=== PATIENT | female | born 1965 | race Caucasian/White ===

== ENCOUNTER 2018-10-09 21:14 | Emergency (ER) | payer MEDICARE, OTHER ==
[~2018-10-09] VITALS: Ht 177.8 cm; Wt 136.1 kg
[2018-10-09 21:20] VITALS: BP 67/68
[2018-10-09] MEDS ORDERED: CELEXA20 MG ORAL (21:27)
[2018-10-09] MEDS ORDERED: BENZTROPINE ME0.5 MG PO (21:27)
[2018-10-09] MEDS ORDERED: SEROQUEL200 MG ORAL (21:27)
[2018-10-09] MEDS ORDERED: DIVALPROEX SOD500 MG PO (21:27)
[2018-10-09] MEDS ORDERED: SENNA8.6 M2 PO (21:27)
[2018-10-09] MEDS ORDERED: COLACE100 MG ORAL (21:27)
[2018-10-09] MEDS ORDERED: SYNTHROID100 MCG ORAL (21:27)
[2018-10-09] MEDS ORDERED: MILK OF MA400 MG/51 ORAL (21:27)
[2018-10-09] MEDS ORDERED: OMEGA 3 1,0001 EACH PO (21:27)
[2018-10-09] MEDS ORDERED: PROTONIX40 MG ORAL (21:27)
[2018-10-09] MEDS ORDERED: ATORVASTATIN CA80 MG ORAL (21:27)
[2018-10-09] MEDS ORDERED: BISACODYL10 M1 RC (21:27)
[2018-10-09] MEDS ORDERED: LOPID600 MG ORAL (21:27)
[2018-10-09] MEDS ORDERED: ACETAMINOPHEN325 M1 ORAL (21:27)
[2018-10-09] MEDS ORDERED: LORazepam Inj 2mg/ml 1ml IV ONE (21:30)
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
[2018-10-09] MEDS ORDERED: Bacitracin Oint UD TOPIC ONE (21:45)
[2018-10-09] MEDS ORDERED: Tetanus/Diptheria/Pertussis Vaccine 0.5ml Syr IM ONE (21:45)
[2018-10-09 21:57] LABS: APPEARANCE,URINE VERY CLOUDY; BASOPHILS % (AUTO) 1.4 % (0.0-2.0); BILIRUBIN, URINE NEGATIVE (NEGATIVE); COLOR,URINE PALE YELLOW; EOSINOPHILS % (AUTO) 2.3 % (0.0-3.0); GLUCOSE, URINE (UA) NEGATIVE (NEGATIVE); HEMATOCRIT 34.8 % (37.0-47.0); HEMOGLOBIN 12.2 G/DL (12.0-16.0); KETONES,URINE NEGATIVE (NEGATIVE); LEUKOCYTE ESTERASE ,URINE 3+ (NEGATIVE); LYMPHOCYTES % (AUTO) 33.9 % (20.0-45.0); MEAN CORPUSCULAR VOLUME 94 FL (80-99); MONOCYTES % (AUTO) 7.5 % (1.0-10.0); NEUTROPHILS % (AUTO) 54.9 % (45.0-75.0); NITRITE,URINE NEGATIVE (NEGATIVE); PH,URINE 6.5 (4.5-8.0); PLATELET COUNT 227 K/UL (150-450); PROTEIN,URINE 2+ (NEGATIVE); RED BLOOD COUNT 3.69 M/UL (4.20-5.40); RED CELL DISTRIBUTION WIDTH 12.5 % (11.6-14.8); UROBILINOGEN,URINE NORMAL MG/DL (0.0-1.0); WHITE BLOOD COUNT 11.3 K/UL (4.8-10.8)
--- NOTE | 2018-10-09 21:58 | Diagnostic Imaging Report ---
EXAM: XR Chest, 1 View CLINICAL HISTORY: ALOC TECHNIQUE: Frontal view of the chest. COMPARISON: No relevant prior studies available. FINDINGS: Limitations: Limited due to hypoventilation. Lungs: Possible mild pulmonary vascular congestion, versus hypoventilation. No focal consolidation. Pleural space: Unremarkable. No pneumothorax. Heart: Mildly prominent heart size. Mediastinum: Unremarkable. Bones/joints: Unremarkable. IMPRESSION: Possible mild pulmonary vascular congestion, versus hypoventilation. No focal consolidation.
[2018-10-09 22:18] LABS: ANION GAP 8 mmol/L (5-15); BLOOD UREA NITROGEN 41 mg/dL (7-18); CALCIUM 9.7 MG/DL (8.5-10.1); CARBON DIOXIDE 28 MMOL/L (21-32); CHLORIDE 103 MMOL/L (98-107); CREATININE 2.4 MG/DL (0.55-1.30); SODIUM 139 MMOL/L (136-145)
[2018-10-09 22:23] LABS: ALANINE AMINOTRANSFERASE 18 U/L (12-78); ALBUMIN 3.8 G/DL (3.4-5.0); ALBUMIN/GLOBULIN RATIO 0.8 (1.0-2.7); ALKALINE PHOSPHATASE 117 U/L (46-116); ASPARTATE AMINO TRANSFERASE 22 U/L (15-37); BILIRUBIN,TOTAL 0.1 MG/DL (0.2-1.0); CREATINE KINASE 488 U/L (26-308)
[2018-10-09 22:46] VITALS: BP 103/55
[2018-10-09] MEDS ORDERED: cefTRIAXone 1 GM in NS 55 ML IVPB ONE (23:45)
[2018-10-10 01:15] VITALS: BP 108/53
[2018-10-10] MEDS ORDERED: NITROFURANTOIN100 M2 ORAL (01:16)
[2018-10-10 02:00] VITALS: BP 106/55
[2018-10-10 02:25] VITALS: BP 106/55
== END 2018-10-10 02:25 | disposition home or self-care (01) ==
LOC: EDBD 21:14 → EMR 21:25
DX: F91.8 Other conduct disorders (principal); N30.00 Acute cystitis without hematuria; Z91.14 Patient's other noncompliance with medication regimen; F14.10 Cocaine abuse, uncomplicated; Z23 Encounter for immunization; F17.200 Nicotine dependence, unspecified, uncomplicated; J44.9 Chronic obstructive pulmonary disease, unspecified; N18.9 Chronic kidney disease, unspecified; E03.9 Hypothyroidism, unspecified; E78.5 Hyperlipidemia, unspecified; K21.9 Gastro-esophageal reflux disease without esophagitis; F20.9 Schizophrenia, unspecified; G40.909 Epilepsy, unspecified, not intractable, without status epilepticus; H54.8 Legal blindness, as defined in USA; M62.81 Muscle weakness (generalized)
CPT/HCPCS: 36415; 71045; 80053; 80164; 80307; 81003; 82550; 84484; 85025; 87086; 90471; 90715; 93005; 96361; 96365; 96375; 99284; G0480; J0696; 80329

== ENCOUNTER 2018-12-22 12:27 | Emergency (ER) | payer MEDICARE, OTHER ==
[~2018-12-22] VITALS: Ht 185.4 cm; Wt 109.3 kg
[~2018-12-22 12:27] MED LIST: ACETAMINOPHEN325 M1 ORAL; ATORVASTATIN CA80 MG ORAL; BENZTROPINE ME0.5 MG PO; BISACODYL10 M1 RC; CELEXA20 MG ORAL; COLACE100 MG ORAL; DIVALPROEX SOD500 MG PO; LOPID600 MG ORAL; MILK OF MA400 MG/51 ORAL; NITROFURANTOIN100 M2 ORAL; OMEGA 3 1,0001 EACH PO; PROTONIX40 MG ORAL; SENNA8.6 M2 PO; SEROQUEL200 MG ORAL; SYNTHROID100 MCG ORAL
[2018-12-22 12:30] VITALS: BP 104/74
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
[2018-12-22] MEDS ORDERED: BENZTROPINE ME0.5 MG PO (12:38)
[2018-12-22] MEDS ORDERED: CELEXA20 MG ORAL (12:38)
--- NOTE | 2018-12-22 12:40 | NUR ---
ED Nurse Note: Pt was brought to CT scan.
[2018-12-22] MEDS ORDERED: CRANBERRY450 M4 PO (12:45)
[2018-12-22] MEDS ORDERED: Tetanus/Diptheria/Pertussis Vaccine 0.5ml Syr IM ONE (12:45)
[2018-12-22] MEDS ORDERED: ALUM-MAG HYDRO360 ML PO (12:45)
--- NOTE | 2018-12-22 13:00 | NUR ---
ED Nurse Note: Pt was brought back to unit from CT scan. Blood drawn and Tdap were attempted by RN and pt refused x3 as stating "No. I am refusing. I have right to refuse. I don't do those things" and crossed her arms and did not let nurse to touch any part of her body. Pt also refused to chagne to gown. Pt is in bed in her own clothing. made aware.
--- NOTE | 2018-12-22 13:15 | NUR ---
ED Nurse Note: Charge nurse asked another nurse to attempt and pt refused again as stating "I said no. If you keep trying I can even go AMA."
--- NOTE | 2018-12-22 13:40 | NUR ---
ED Nurse Note: Laceration treatment done at bedside by doctor. Pt cooperated well.
[2018-12-22] MEDS ORDERED: Lidocaine 2% 20mg/ml/EPI 0.01mg/ml 20ml INJ ONE (14:00)
--- NOTE | 2018-12-22 14:17 | Diagnostic Imaging Report ---
Indications: Headache, status post fall Technique: Spiral acquisitions obtained through the brain. Angled axial and coronal 5 x 5 mm slices were reconstructed. Total dose length product 1441.87 mGycm. CTDI vol(s) 70.38 mGy. Dose reduction achieved using automated exposure control Comparison: None. Findings: No acute intracranial hemorrhage or edema. No mass effect or midline shift. Normal crenshaw-white differentiation. Normal-sized ventricles and extra axial CSF spaces. Intact calvarium, demonstrating hyperostosis. Visualized orbits and sinuses are unremarkable. There is suggestion of focal superficial soft tissue contusion in the high posterior right parietal vertex Impression: Negative. No evidence of acute intracranial bleed or mass effect The CT scanner at [facility] is accredited by the [employer] and the scans are performed using protocols designed to limit radiation exposure to as low as reasonably achievable to attain images of sufficient resolution adequate for diagnostic evaluation.
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
--- NOTE | 2018-12-22 15:00 | NUR ---
ED Nurse Note: No s/s of infection noted on laceration area after procedure. Pt stable in bed and waiting for transporation to go back to SNF.
[2018-12-22 15:39] VITALS: BP 134/74
--- NOTE | 2018-12-22 15:39 | NUR ---
ED Nurse Note: Transportation arrived and pt left facility in stable condition. Pt received discharge instruction. Sonny at SNF informed on pt's return. ID band removed.
== END 2018-12-22 15:39 | disposition home or self-care (01) ==
LOC: EDUNIT# 12:27 → EDBD 12:27 → EMR 13:14
DX: S01.01XA Laceration without foreign body of scalp, initial encounter (principal); F17.200 Nicotine dependence, unspecified, uncomplicated; E11.9 Type 2 diabetes mellitus without complications; J44.9 Chronic obstructive pulmonary disease, unspecified; K21.9 Gastro-esophageal reflux disease without esophagitis; F20.9 Schizophrenia, unspecified; G40.909 Epilepsy, unspecified, not intractable, without status epilepticus; N28.9 Disorder of kidney and ureter, unspecified; M62.81 Muscle weakness (generalized); W18.09XA Striking against other object with subsequent fall, initial encounter; Y92.098 Other place in other non-institutional residence as the place of occurrence of the external cause
CPT/HCPCS: 70450; 99284

== ENCOUNTER 2020-04-05 13:57 | Inpatient (IN) | payer MEDICARE ==
[~2020-04-05] VITALS: Ht 165.1 cm; Wt 88.0 kg
[~2020-04-05 13:57] MED LIST changes: +ALUM-MAG HYDRO360 ML PO; +CRANBERRY450 M4 PO
--- NOTE | 2020-04-05 14:05 | Emergency Room Report ---
History of Present Illness General Chief Complaint: Abnormal Labs Source: Medical Record, EMS Present Illness HPI 54-year-old female history of CKD, history of dementia presents from [facility] for abnormal labs patient with a hemoglobin of 7.9 no active bleeding history aggravated by chronic kidney disease no alleviating factors severity is mild, constant patient presents for blood transfusion and further evaluation Allergies: Coded Allergies: No Known Allergies (Unverified , 10/09/18) COVID-19 Screening Contact w/high risk pt: No Recent Travel to affected area: No Experienced COVID-19 symptoms?: No Patient History Past Medical History: see triage record Last Menstrual Period: na Reviewed Nursing Documentation: PMH: Agreed; PSxH: Agreed Nursing Documentation-PMH Hx COPD: Yes Hx Diabetes: Yes - TYPE 2 Hx Gastrointestinal Problems: Yes - GERD Hx Neurological Problems: Yes - Generalized muscle weakness Hx Seizures: Yes - Epilepsy Review of Systems All Other Systems: negative except mentioned in HPI Physical Exam Sp02 EP Interpretation: reviewed, normal General Appearance: well appearing, no apparent distress Head: normocephalic, atraumatic Eyes: bilateral eye PERRL, bilateral eye EOMI ENT: hearing grossly normal, normal voice Neck: full range of motion, supple Respiratory: no respiratory distress, speaking full sentences Gastrointestinal: non tender, soft, no guarding Neurologic: alert, other - Moves all 4 extremities spontaneously Skin: no rash Medical Decision Making Diagnostic Impression: Primary Impression: Symptomatic anemia Additional Impressions: Fever Qualified Codes: R50.9 - Fever, unspecified Suspected COVID-19 virus infection UTI (urinary tract infection) Qualified Codes: N30.01 - Acute cystitis with hematuria ER Course 54-year-old female presents with anemia, presents for transfusion, while in the emergency room patient then had a fever, there is a concern that she may have been exposed to COVID or have sepsis, we will start broad-spectrum antibiotics, will start blood transfusion will admit patient for anemia as well as infectious work-up. Spoke with conservator, if blood transfusion is not emergent cannot be done unless to go to the courts blood transfusion would only be started if she was on that store per the conservator Will continue treatment with antibiotics and fluid resuscitation Patient admitted to Dr. Hurtado Laboratory Tests Test 04/05/20 14:45 White Blood Count 21.8 K/UL (4.8-10.8) H Red Blood Count 2.70 M/UL (4.20-5.40) L Hemoglobin 8.2 G/DL (12.0-16.0) L Hematocrit 24.9 % (37.0-47.0) L Mean Corpuscular Volume 92 FL (80-99) Mean Corpuscular Hemoglobin 30.5 PG (27.0-31.0) Mean Corpuscular Hemoglobin Concent 33.1 G/DL (32.0-36.0) Red Cell Distribution Width 15.6 % (11.6-14.8) H Platelet Count 295 K/UL (150-450) Mean Platelet Volume 4.4 FL (6.5-10.1) L Neutrophils (%) (Auto) % (45.0-75.0) Lymphocytes (%) (Auto) % (20.0-45.0) Monocytes (%) (Auto) % (1.0-10.0) Eosinophils (%) (Auto) % (0.0-3.0) Basophils (%) (Auto) % (0.0-2.0) Differential Total Cells Counted 100 Neutrophils % (Manual) 63 % (45-75) Lymphocytes % (Manual) 27 % (20-45) Monocytes % (Manual) 6 % (1-10) Eosinophils % (Manual) 0 % (0-3) Basophils % (Manual) 0 % (0-2) Band Neutrophils 4 % (0-8) Nucleated Red Blood Cells 1 /100 WBC Platelet Estimate Adequate Platelet Morphology Normal Polychromasia 1+ Anisocytosis 1+ Urine Color Pale yellow Urine Appearance Cloudy Urine pH 6 (4.5-8.0) Urine Specific [place] 1.010 (1.005-1.035) Urine Protein 3+ (NEGATIVE) H Urine Glucose (UA) Negative (NEGATIVE) Urine Ketones Negative (NEGATIVE) Urine Blood 5+ (NEGATIVE) H Urine Nitrite Positive (NEGATIVE) H Urine Bilirubin Negative (NEGATIVE) Urine Urobilinogen Normal MG/DL (0.0-1.0) Urine Leukocyte Esterase 3+ (NEGATIVE) H Urine RBC 10-15 /HPF (0 - 2) H Urine WBC Tntc /HPF (0 - 2) H Urine Squamous Epithelial Cells Few /LPF (NONE/OCC) Urine Bacteria Many /HPF (NONE) H Sodium Level 140 MMOL/L (136-145) Potassium Level 3.8 MMOL/L (3.5-5.1) Chloride Level 106 MMOL/L (98-107) Carbon Dioxide Level 16 MMOL/L (21-32) L Anion Gap 18 mmol/L (5-15) H Blood Urea Nitrogen 63 mg/dL (7-18) H Creatinine 3.2 MG/DL (0.55-1.30) H Estimated Glomerular Filtration Rate 15.2 mL/min (>60) Glucose Level 95 MG/DL (74-106) Lactic Acid Level 0.70 mmol/L (0.4-2.0) Calcium Level 11.2 MG/DL (8.5-10.1) H Phosphorus Level 4.6 MG/DL (2.5-4.9) Magnesium Level 2.7 MG/DL (1.8-2.4) H Total Bilirubin 0.2 MG/DL (0.2-1.0) Aspartate Amino Transferase (AST) 21 U/L (15-37) Alanine Aminotransferase (ALT) 11 U/L (12-78) L Alkaline Phosphatase 82 U/L (46-116) Troponin I 0.000 ng/mL (0.000-0.056) Pro-B-Type Natriuretic Peptide 7568 pg/mL (0-125) H Total Protein 7.6 G/DL (6.4-8.2) Albumin 2.0 G/DL (3.4-5.0) L Globulin 5.6 g/dL Albumin/Globulin Ratio 0.4 (1.0-2.7) L Lipase 274 U/L (73-393) EKG Diagnostic Results EKG Time: 15:06 EP Interpretation: NSR, rate 60, QTc 414, no acute ST elevations, left axis deviation Rhythm Strip Diag. Results Rhythm Strip Time: 15:18 EP Interpretation: yes Rate: 60 Rhythm: NSR, no PVC's, no ectopy Chest X-Ray Diagnostic Results Chest X-Ray Diagnostic Results : Chest X-Ray Ordered: Yes # of Views/Limited/Complete: 1 View Indication: Other - Cough EP Interpretation: Yes Interpretation: no consolidation, no effusion, no pneumothorax, no acute cardiopulmonary disease Impression: No acute disease Electronically Signed by: Jeffrey Murphy MD Disposition: ADMITTED INPATIENT Condition: Serious Jeffrey Murphy MD April 05, 2020 14:05
[2020-04-05 14:10] VITALS: BP 106/68
[2020-04-05] MEDS ORDERED: Cefepime HCl 2 GM in NS 110 ML IV ONE (14:15)
[2020-04-05] MEDS ORDERED: Vancomycin 1.5 GM in NS 275 ML IVPB ONE (14:15)
[2020-04-05] MEDS ORDERED: Acetaminophen 500mg (ES) tab ORAL ONE (14:30)
[2020-04-05 14:58] LABS: HEMATOCRIT 24.9 % (37.0-47.0); HEMOGLOBIN 8.2 G/DL (12.0-16.0); MEAN CORPUSCULAR VOLUME 92 FL (80-99); PLATELET COUNT 295 K/UL (150-450); RED CELL DISTRIBUTION WIDTH 15.6 % (11.6-14.8); WHITE BLOOD COUNT 21.8 K/UL (4.8-10.8)
[2020-04-05 15:11] LABS: APPEARANCE,URINE CLOUDY; BILIRUBIN, URINE NEGATIVE (NEGATIVE); COLOR,URINE PALE YELLOW; GLUCOSE, URINE (UA) NEGATIVE (NEGATIVE); KETONES,URINE NEGATIVE (NEGATIVE); LEUKOCYTE ESTERASE ,URINE 3+ (NEGATIVE); NITRITE,URINE POSITIVE (NEGATIVE); PH,URINE 6 (4.5-8.0); PROTEIN,URINE 3+ (NEGATIVE); UROBILINOGEN,URINE NORMAL MG/DL (0.0-1.0)
[2020-04-05] MEDS ORDERED: Morphine Sulfate 2mg/ml Inj(IV/IM USE ONLY) IVP PRN (15:30)
[2020-04-05] MEDS ORDERED: Mylanta II UD 30ml ORAL PRN (15:30)
[2020-04-05] MEDS ORDERED: DiphenhydrAMINE 25mg Tab ORAL PRN (15:30)
[2020-04-05] MEDS ORDERED: Nitroglycerin Subl 0.4mg tab SL PRN (15:30)
--- NOTE | 2020-04-05 15:42 | Diagnostic Imaging Report ---
Indication: Chest pain Technique: One view of the chest Comparison: 12/01/2019 Findings: Lungs and pleural spaces are clear. Heart size is normal. No significant change Impression: No acute process
[2020-04-05 16:00] VITALS: BP 106/58
[2020-04-05 16:12] LABS: ANION GAP 18 mmol/L (5-15); BLOOD UREA NITROGEN 63 mg/dL (7-18); CALCIUM 11.2 MG/DL (8.5-10.1); CARBON DIOXIDE 16 MMOL/L (21-32); CHLORIDE 106 MMOL/L (98-107); CREATININE 3.2 MG/DL (0.55-1.30); POTASSIUM 3.8 MMOL/L (3.5-5.1); SODIUM 140 MMOL/L (136-145)
[2020-04-05 16:17] LABS: ALANINE AMINOTRANSFERASE 11 U/L (12-78); ALBUMIN/GLOBULIN RATIO 0.4 (1.0-2.7); ALKALINE PHOSPHATASE 82 U/L (46-116); ASPARTATE AMINO TRANSFERASE 21 U/L (15-37); BILIRUBIN,TOTAL 0.2 MG/DL (0.2-1.0)
[2020-04-05 16:19] LABS: PHOSPHORUS 4.6 MG/DL (2.5-4.9)
[2020-04-05 18:00] VITALS: BP 111/65
--- NOTE | 2020-04-05 18:06 | Consultation ---
History of Present Illness General Date patient seen: April 05, 2020 Chief Complaint: Abnormal Labs Present Illness HPI 54 y/o F with hx of CKD, GERD, seizure disorder, Dementia, SNF resident ( Tanya henderson) presented to ED on 04/03 for anemia (Hemoglobin 7.9), no active bleeding. Allergies: Coded Allergies: No Known Allergies (Unverified , 10/09/18) Medication History Scheduled Atorvastatin Calcium* (Lipitor*), 80 MG ORAL BEDTIME, (Reported) Benztropine Mesylate* (Cogentin*), 1 MG PO TWICE A DAY, (Reported) Benztropine Mesylate* (Cogentin*), 1 MG PO BID, (Reported) Bisacodyl (Bisacodyl), 10 MG RC NEEDED, (Reported) Citalopram Hydrobromide* (Celexa*), 20 MG ORAL DAILY, (Reported) Cranberry Fruit Concentrate (Cranberry), 450 MG PO BID, (Reported) Divalproex Sodium (Divalproex Sodium), 1,000 MG PO BEDTIME, (Reported) Docusate Sodium* (Colace*), 100 MG ORAL DAILY, (Reported) Gemfibrozil* (Lopid*), 600 MG ORAL TWICE A DAY, (Reported) Levothyroxine Sodium* (Synthroid*), 100 MCG ORAL DAILY, (Reported) Mag Hydrox/Al Hydrox/Simeth (Alum-Mag Hydroxide-Simeth Liq), 30 ML PO EVERY 4 HOURS, (Reported) Magnesium Hydroxide* (Milk Of Magnesia*), 30 ML ORAL NEEDED, (Reported) Nitrofurantoin Monohyd/M-Cryst* (Macrobid 100 Mg*), 100 MG ORAL EVERY 12 HOURS Plains-3 Fatty Acids/Fish Oil (Plains 3 1,000 Mg Softgel), 1 EACH PO DAILY, ( Reported) Pantoprazole* (Protonix*), 40 MG ORAL DAILY, (Reported) Quetiapine Fumarate* (Seroquel*), 200 MG ORAL TWICE A DAY, (Reported) Sennosides (Senna), 8.6 MG PO BEDTIME, (Reported) Scheduled PRN Acetaminophen* (Acetaminophen 325MG Tablet*), 650 MG ORAL Q4H PRN for Mild Pain/ Temp > 100.5, (Reported) Patient History Healthcare decision maker Resuscitation status Advanced Directive on File Physical Exam Physical Exam Narrative General Appearance: well appearing, no apparent distress Head: normocephalic, atraumatic Eyes: bilateral eye PERRL, bilateral eye EOMI ENT: hearing grossly normal, normal voice Neck: full range of motion, supple Respiratory: no respiratory distress, speaking full sentences Gastrointestinal: non tender, soft, no guarding Neurologic: alert, other - Moves all 4 extremities spontaneously Skin: no rash Last 24 Hour Vital Signs Date Time Temp Pulse Resp B/P (MAP) Pulse Ox O2 Delivery O2 Flow Rate FiO2 04/05/20 17:35 97.8 04/05/20 16:00 99.8 62 20 106/58 98 Room Air 04/05/20 14:10 100.7 62 20 106/68 97 Room Air 04/05/20 14:10 62 20 Room Air 04/05/20 13:59 72 18 112/66 (81) 97 Room Air Laboratory Tests Test 04/05/20 14:45 White Blood Count 21.8 K/UL (4.8-10.8) H Red Blood Count 2.70 M/UL (4.20-5.40) L Hemoglobin 8.2 G/DL (12.0-16.0) L Hematocrit 24.9 % (37.0-47.0) L Mean Corpuscular Volume 92 FL (80-99) Mean Corpuscular Hemoglobin 30.5 PG (27.0-31.0) Mean Corpuscular Hemoglobin Concent 33.1 G/DL (32.0-36.0) Red Cell Distribution Width 15.6 % (11.6-14.8) H Platelet Count 295 K/UL (150-450) Mean Platelet Volume 4.4 FL (6.5-10.1) L Neutrophils (%) (Auto) % (45.0-75.0) Lymphocytes (%) (Auto) % (20.0-45.0) Monocytes (%) (Auto) % (1.0-10.0) Eosinophils (%) (Auto) % (0.0-3.0) Basophils (%) (Auto) % (0.0-2.0) Differential Total Cells Counted 100 Neutrophils % (Manual) 63 % (45-75) Lymphocytes % (Manual) 27 % (20-45) Monocytes % (Manual) 6 % (1-10) Eosinophils % (Manual) 0 % (0-3) Basophils % (Manual) 0 % (0-2) Band Neutrophils 4 % (0-8) Nucleated Red Blood Cells 1 /100 WBC Platelet Estimate Adequate Platelet Morphology Normal Polychromasia 1+ Anisocytosis 1+ Urine Color Pale yellow Urine Appearance Cloudy Urine pH 6 (4.5-8.0) Urine Specific [place] 1.010 (1.005-1.035) Urine Protein 3+ (NEGATIVE) H Urine Glucose (UA) Negative (NEGATIVE) Urine Ketones Negative (NEGATIVE) Urine Blood 5+ (NEGATIVE) H Urine Nitrite Positive (NEGATIVE) H Urine Bilirubin Negative (NEGATIVE) Urine Urobilinogen Normal MG/DL (0.0-1.0) Urine Leukocyte Esterase 3+ (NEGATIVE) H Urine RBC 10-15 /HPF (0 - 2) H Urine WBC Tntc /HPF (0 - 2) H Urine Squamous Epithelial Cells Few /LPF (NONE/OCC) Urine Bacteria Many /HPF (NONE) H Sodium Level 140 MMOL/L (136-145) Potassium Level 3.8 MMOL/L (3.5-5.1) Chloride Level 106 MMOL/L (98-107) Carbon Dioxide Level 16 MMOL/L (21-32) L Anion Gap 18 mmol/L (5-15) H Blood Urea Nitrogen 63 mg/dL (7-18) H Creatinine 3.2 MG/DL (0.55-1.30) H Estimat Glomerular Filtration Rate 15.2 mL/min (>60) Glucose Level 95 MG/DL (74-106) Lactic Acid Level 0.70 mmol/L (0.4-2.0) Calcium Level 11.2 MG/DL (8.5-10.1) H Phosphorus Level 4.6 MG/DL (2.5-4.9) Magnesium Level 2.7 MG/DL (1.8-2.4) H Total Bilirubin 0.2 MG/DL (0.2-1.0) Aspartate Amino Transf (AST/SGOT) 21 U/L (15-37) Alanine Aminotransferase (ALT/SGPT) 11 U/L (12-78) L Alkaline Phosphatase 82 U/L (46-116) Troponin I 0.000 ng/mL (0.000-0.056) Pro-B-Type Natriuretic Peptide 7568 pg/mL (0-125) H Total Protein 7.6 G/DL (6.4-8.2) Albumin 2.0 G/DL (3.4-5.0) L Globulin 5.6 g/dL Albumin/Globulin Ratio 0.4 (1.0-2.7) L Lipase 274 U/L (73-393) Height (Feet): 5 Height (Inches): 5.00 Weight (Pounds): 150 Medications Current Medications Medications (Trade) Dose Ordered Sig/Alix Route PRN Reason Start Time Stop Time Status Last Admin Dose Admin Acetaminophen (Tylenol) 650 mg Q4H PRN ORAL Mild Pain (Pain Scale 1-3) 04/05/20 15:30 05/05/20 15:29 Acetaminophen (Tylenol) 650 mg Q4H PRN ORAL Mild Pain (Pain Scale 1-3) 04/05/20 16:30 05/05/20 16:29 Al Hydroxide/Mg Hydroxide (Mylanta II) 30 ml Q6H PRN ORAL dyspepsia 04/05/20 15:30 05/05/20 15:29 Bisacodyl (Dulcolax) 10 mg DAILYPRN PRN RECTAL Constipation 04/05/20 16:30 07/04/20 16:29 Ceftriaxone Sodium 2 gm/ Dextrose 110 ml @ 220 mls/hr Q24H IV 04/05/20 17:30 04/12/20 17:29 UNV Dextrose (Dextrose 50%) 25 ml Q30M PRN IV Hypoglycemia 04/05/20 15:30 07/04/20 15:29 Dextrose (Dextrose 50%) 50 ml Q30M PRN IV Hypoglycemia 04/05/20 15:30 07/04/20 15:29 Diphenhydramine HCl (Benadryl) 25 mg Q6H PRN ORAL Itching/Pruritis 04/05/20 15:30 05/05/20 15:29 Docusate Sodium (Colace) 100 mg EVERY 12 HOURS ORAL 04/05/20 21:00 05/05/20 20:59 Docusate Sodium (Colace) 100 mg EVERY 12 HOURS ORAL 04/05/20 21:00 05/05/20 20:59 Heparin Sodium (Porcine) (Heparin 5000 units/ml) 5,000 units EVERY 12 HOURS SUBQ 04/05/20 21:00 05/20/20 20:59 Morphine Sulfate (Morphine Sulfate) 1 mg Q6H PRN IVP For Pain 04/05/20 15:30 04/12/20 15:29 Nitroglycerin (Ntg) 0.4 mg Q5M X 3 DOSES PRN SL Prn Chest Pain 04/05/20 15:30 05/05/20 15:29 Ondansetron HCl (Zofran) 4 mg Q6H PRN IVP Nausea & Vomiting 04/05/20 15:30 05/05/20 15:29 Ondansetron HCl (Zofran) 4 mg Q6H PRN IVP Nausea & Vomiting 04/05/20 16:30 05/05/20 16:29 Pantoprazole (Protonix) 40 mg ACBREAKFAST ORAL 04/06/20 06:30 05/06/20 06:29 Pantoprazole (Protonix) 40 mg DAILY ORAL 04/06/20 09:00 05/06/20 08:59 Sodium Chloride 1,000 ml @ 50 mls/hr Q20H IVLG 04/05/20 18:00 05/05/20 17:59 Zolpidem Tartrate (Ambien) 5 mg HSPRN PRN ORAL Insomnia 04/05/20 15:30 04/12/20 15:29 Assessment/Plan Assessment/Plan: Abx: Ceftriaxone 5/5- CEfepime x1 5/5 IV Vancomycin x 5/5 Assessment: SEpsis UTI -u/a wbc tnct, nit +, leuk +3; ucx p Low grade fever- r/o COVID19 (resident from [place] with large outbreak) Leukocytosis -04/05 CXR; no acute process ANemia CKD GERD seizure disorder Dementia SNF resident (Tanya henderson) Plan: -Continue Ceftriaxone #1 pending urine culture -f/u cx -Monitor CBC/CMP, temperatures -COVID19 isolation and testing Thank you for consulting [facility]. Will continue to follow along with you, Discussed with Kari Markham M.D. April 05, 2020 18:06
[2020-04-05] MEDS ORDERED: cefTRIAXone 2 GM in D5W 110 ML IV SCH ×2 (21:00→22:00)
[2020-04-05] MEDS ORDERED: Docusate 100mg cap ORAL SCH (21:00)
[2020-04-05] MEDS: Docusate 100mg cap ORAL SCH (22:22)
[2020-04-05] MEDS: Heparin 5000 units/ml inj SUBQ SCH (22:23)
[2020-04-06] VITALS (13 sets, daily range): BP systolic 92–126; BP diastolic 57–79
--- NOTE | 2020-04-06 02:00 | Consultation ---
DATE OF CONSULTATION: 04/05/2020 PULMONARY CONSULTATION HISTORY OF PRESENT ILLNESS: This is a 54-year-old female with a history of renal failure and dementia. She was sent from [facility] with history of anemia. No other history obtainable. It was apparent that she was sent in for transfusion and other workup. In the ER, the patient was seen and evaluated. She was also noted to be febrile as per my discussion with Dr. Soto Hurtado; however, I am unable to find documentation in the ER records. PAST MEDICAL HISTORY: COPD, diabetes mellitus, GERD, seizure disorder, CKD, dementia. HOME MEDICATIONS: Reviewed and reconciled in chart. REVIEW OF SYSTEMS: Not obtainable. PHYSICAL EXAMINATION: GENERAL: Reveals a 54-year-old female. VITAL SIGNS: Blood pressure is 112/60, heart rate 84, respiratory rate , she is afebrile, O2 saturation 99% on room air. HEENT: Unremarkable. LUNGS: Decreased breath sounds bilaterally. HEART: Normal heart sounds. ABDOMEN: Soft. EXTREMITIES: There is no edema. LABORATORY DATA: Lab testing shows hemoglobin 8.2, white count 12258, platelet count Chemistries notable for creatinine 3.2. IMAGING STUDIES: X-ray of chest showed clear lung millan bilaterally. IMPRESSION: 1. Leukocytosis. 2. Anemia. 3. CKD. 4. Seizure disorder. 5. COPD. 6. assisted resident. DISCUSSION: Admitted to the hospital. We will start empiric antibiotics. Continue medications. At this time, we will hold transfusion since hemoglobin is over 8. Nephrology evaluation recommended. We will follow. Jerel Walker M.D. DR: Jeny JOB#: [id number] CC:
[2020-04-06 05:43] LABS: HEMATOCRIT 24.3 % (37.0-47.0); HEMOGLOBIN 8.1 G/DL (12.0-16.0); MEAN CORPUSCULAR VOLUME 92 FL (80-99); PLATELET COUNT 287 K/UL (150-450); RED BLOOD COUNT 2.65 M/UL (4.20-5.40); RED CELL DISTRIBUTION WIDTH 15.4 % (11.6-14.8); WHITE BLOOD COUNT 21.6 K/UL (4.8-10.8)
[2020-04-06 06:32] LABS: ANION GAP 16 mmol/L (5-15); BLOOD UREA NITROGEN 61 mg/dL (7-18); CALCIUM 11.2 MG/DL (8.5-10.1); CARBON DIOXIDE 16 MMOL/L (21-32); CHLORIDE 112 MMOL/L (98-107); CREATININE 3.1 MG/DL (0.55-1.30); POTASSIUM 3.6 MMOL/L (3.5-5.1); SODIUM 144 MMOL/L (136-145)
[2020-04-06] MEDS: Docusate 100mg cap ORAL SCH ×3 (08:44→17:42)
[2020-04-06] MEDS: Heparin 5000 units/ml inj SUBQ SCH ×2 (08:45→21:22)
--- NOTE | 2020-04-06 09:14 | Consultation ---
Consult Note Consult Note I was asked to evaluate the patient at the request of Dr. Hurtado for renal failure 54-year-old female history of CKD, history of dementia presents from [facility] for abnormal labs patient with a hemoglobin of 7.9 no active bleeding history aggravated by chronic kidney disease no alleviating factors severity is mild, constant patient presents for blood transfusion and further evaluation Initial data reviewed Patient blind, uncooperative No known allergy COVID-19 Screening Contact w/high risk pt: No Recent Travel to affected area: No Experienced COVID-19 symptoms?: No Hx COPD: Yes Hx Diabetes: Yes - TYPE 2 Hx Gastrointestinal Problems: Yes - GERD Hx Neurological Problems: Yes - Generalized muscle weakness Hx Seizures: Yes - Epilepsy Assessment/Plan Renal failure most likely acute Underlying chronic kidney disease History of diabetes mellitus, but hemoglobin A1c is 5.7 Severe anemia Hypercalcemia Leukocytosis, UTI Seizure disorder Patient blind Has history of psych disease alf resident Plan: Patient needs IV hydration RN reports that the patient refuses IV fluid and also refuses medication Continue antibiotics Monitor renal parameters Urine studies Sohan Lane MD April 06, 2020 09:14
--- NOTE | 2020-04-06 11:15 | Pulmonology Progress Note ---
Subjective Interval Events: None new Constitutional: Reports: no symptoms HEENT: Repors: no symptoms Respiratory: Reports: no symptoms Cardiovascular: Reports: no symptoms Gastrointestinal/Abdominal: Reports: no symptoms Allergies: Coded Allergies: No Known Allergies (Unverified , 10/09/18) Objective Last 24 Hour Vital Signs Date Time Temp Pulse Resp B/P (MAP) Pulse Ox O2 Delivery O2 Flow Rate FiO2 04/06/20 09:00 Room Air 04/06/20 08:00 97.3 86 18 120/68 (85) 95 04/06/20 04:00 98.2 63 18 98/74 (82) 97 04/06/20 00:10 98.4 69 18 99/74 (82) 94 04/05/20 21:00 Room Air 04/05/20 20:36 Room Air 04/05/20 20:20 98.3 65 18 111/65 99 Room Air 04/05/20 18:00 98.3 65 18 111/65 99 Room Air 04/05/20 17:35 97.8 04/05/20 16:00 99.8 62 20 106/58 98 Room Air 04/05/20 14:10 100.7 62 20 106/68 97 Room Air 04/05/20 14:10 62 20 Room Air 04/05/20 13:59 72 18 112/66 (81) 97 Room Air Intake and Output 04/05/20 04/06/20 19:00 07:00 Intake Total 1110 ml Output Total 1600 ml Balance 1110 ml -1600 ml Intake IV Total 1110 ml Output Urine Total 1600 ml # Voids 1 General Appearance: no acute distress HEENT: normocephalic Respiratory/Chest: chest wall non-tender, lungs clear Cardiovascular: normal peripheral pulses, normal rate Abdomen: normal bowel sounds Microbiology Date/Time Source Procedure Growth Status 04/05/20 14:45 Urine,Clean Catch Urine Culture - Preliminary Resulted Laboratory Tests 04/05/20 14:45: White Blood Count 21.8H, Red Blood Count 2.70L, Hemoglobin 8.2L, Hematocrit 24.9L, Mean Corpuscular Volume 92, Mean Corpuscular Hemoglobin 30.5, Mean Corpuscular Hemoglobin Concent 33.1, Red Cell Distribution Width 15.6H, Platelet Count 295, Mean Platelet Volume 4.4L, Neutrophils (%) (Auto) , Lymphocytes (%) (Auto) , Monocytes (%) (Auto) , Eosinophils (%) (Auto) , Basophils (%) (Auto) , Differential Total Cells Counted 100, Neutrophils % ( Manual) 63, Lymphocytes % (Manual) 27, Monocytes % (Manual) 6, Eosinophils % ( Manual) 0, Basophils % (Manual) 0, Band Neutrophils 4, Nucleated Red Blood Cells 1, Platelet Estimate Adequate, Platelet Morphology Normal, Polychromasia 1 +, Anisocytosis 1+, Urine Color Pale yellow, Urine Appearance Cloudy, Urine pH 6 , Urine Specific [place] 1.010, Urine Protein 3+H, Urine Glucose (UA) Negative, Urine Ketones Negative, Urine Blood 5+H, Urine Nitrite PositiveH, Urine Bilirubin Negative, Urine Urobilinogen Normal, Urine Leukocyte Esterase 3+H, Urine RBC 10-15H, Urine WBC TntcH, Urine Squamous Epithelial Cells Few, Urine Bacteria ManyH, Sodium Level 140, Potassium Level 3.8, Chloride Level 106, Carbon Dioxide Level 16L, Anion Gap 18H, Blood Urea Nitrogen 63H, Creatinine 3.2H, Estimat Glomerular Filtration Rate 15.2, Glucose Level 95, Lactic Acid Level 0.70, Calcium Level 11.2H, Phosphorus Level 4.6, Magnesium Level 2.7H, Total Bilirubin 0.2, Aspartate Amino Transf (AST/SGOT) 21, Alanine Aminotransferase (ALT/SGPT) 11L, Alkaline Phosphatase 82, Troponin I 0.000, Pro- B-Type Natriuretic Peptide 7568H, Total Protein 7.6, Albumin 2.0L, Globulin 5.6 , Albumin/Globulin Ratio 0.4L, Lipase 274 04/06/20 04:09: Phosphorus Level 4.6, Uric Acid [Pending], Iron Level [Pending], Unsaturated Iron Binding [Pending], Ferritin [Pending] 04/06/20 04:49: White Blood Count 21.6H, Red Blood Count 2.65L, Hemoglobin 8.1L, Hematocrit 24.3L, Mean Corpuscular Volume 92, Mean Corpuscular Hemoglobin 30.4, Mean Corpuscular Hemoglobin Concent 33.1, Red Cell Distribution Width 15.4H, Platelet Count 287, Mean Platelet Volume 4.7L, Neutrophils (%) (Auto) , Lymphocytes (%) (Auto) , Monocytes (%) (Auto) , Eosinophils (%) (Auto) , Basophils (%) (Auto) , Differential Total Cells Counted 100, Neutrophils % ( Manual) 62, Lymphocytes % (Manual) 18L, Monocytes % (Manual) 12H, Eosinophils % (Manual) 0, Basophils % (Manual) 0, Band Neutrophils 8, Platelet Estimate Adequate, Platelet Morphology Normal, Anisocytosis 1+, Sodium Level 144, Potassium Level 3.6, Chloride Level 112H, Carbon Dioxide Level 16L, Anion Gap 16H, Blood Urea Nitrogen 61H, Creatinine 3.1H, Estimat Glomerular Filtration Rate 15.8, Glucose Level 85, Calcium Level 11.2H, Hypochromasia 2+, Spherocytes 1+, Hemoglobin A1c 5.7, Thyroid Stimulating Hormone (TSH) 0.091L 04/06/20 10:49: Iron Level [Pending], Unsaturated Iron Binding [Pending], Vitamin B12 Level [ Pending], Folate [Pending] Current Medications Medications (Trade) Dose Ordered Sig/Alix Route PRN Reason Start Time Stop Time Status Last Admin Dose Admin Acetaminophen (Tylenol) 650 mg Q4H PRN ORAL Mild Pain (Pain Scale 1-3) 04/05/20 15:30 05/05/20 15:29 04/06/20 08:56 Bisacodyl (Dulcolax) 10 mg DAILYPRN PRN RECTAL Constipation 04/05/20 16:30 07/04/20 16:29 Ceftriaxone Sodium 2 gm/ Dextrose 110 ml @ 220 mls/hr Q24H IV 04/05/20 22:00 04/12/20 21:59 04/05/20 22:22 Dextrose (Dextrose 50%) 25 ml Q30M PRN IV Hypoglycemia 04/05/20 15:30 07/04/20 15:29 Dextrose (Dextrose 50%) 50 ml Q30M PRN IV Hypoglycemia 04/05/20 15:30 07/04/20 15:29 Diphenhydramine HCl (Benadryl) 25 mg Q6H PRN ORAL Itching/Pruritis 04/05/20 15:30 05/05/20 15:29 Docusate Sodium (Colace) 100 mg TID ORAL 04/06/20 13:00 05/05/20 20:59 Heparin Sodium (Porcine) (Heparin 5000 units/ml) 5,000 units EVERY 12 HOURS SUBQ 04/05/20 21:00 05/20/20 20:59 04/06/20 08:45 Morphine Sulfate (Morphine Sulfate) 1 mg Q6H PRN IVP For Pain 04/05/20 15:30 04/12/20 15:29 Nitroglycerin (Ntg) 0.4 mg Q5M X 3 DOSES PRN SL Prn Chest Pain 04/05/20 15:30 05/05/20 15:29 Ondansetron HCl (Zofran) 4 mg Q6H PRN IVP Nausea & Vomiting 04/05/20 15:30 05/05/20 15:29 Pantoprazole (Protonix) 40 mg Q12HR ORAL 04/06/20 21:00 05/06/20 08:59 Sodium Chloride 1,000 ml @ 50 mls/hr Q20H IVLG 04/05/20 22:00 05/05/20 21:59 04/05/20 22:23 Zolpidem Tartrate (Ambien) 5 mg HSPRN PRN ORAL Insomnia 04/05/20 15:30 04/12/20 15:29 Assessment/Plan Assessment/Plan IMPRESSION: 1. Leukocytosis. 2. Anemia. 3. CKD. 4. Seizure disorder. 5. COPD. 6. senior care resident. DISCUSSION: Seen by ID; continue empiric antibiotics. Continue medications. I will follow. Respiratory status is stable Reynaldo Velazco Omar Syed MD April 06, 2020 11:15
--- NOTE | 2020-04-06 11:38 | Consultation ---
History of Present Illness General Chief Complaint: Abnormal Labs Present Illness Allergies: Coded Allergies: No Known Allergies (Unverified , 10/09/18) Medication History Scheduled Atorvastatin Calcium* (Lipitor*), 80 MG ORAL BEDTIME, (Reported) Benztropine Mesylate* (Cogentin*), 1 MG PO TWICE A DAY, (Reported) Benztropine Mesylate* (Cogentin*), 1 MG PO BID, (Reported) Bisacodyl (Bisacodyl), 10 MG RC NEEDED, (Reported) Citalopram Hydrobromide* (Celexa*), 20 MG ORAL DAILY, (Reported) Cranberry Fruit Concentrate (Cranberry), 450 MG PO BID, (Reported) Divalproex Sodium (Divalproex Sodium), 1,000 MG PO BEDTIME, (Reported) Docusate Sodium* (Colace*), 100 MG ORAL DAILY, (Reported) Gemfibrozil* (Lopid*), 600 MG ORAL TWICE A DAY, (Reported) Levothyroxine Sodium* (Synthroid*), 100 MCG ORAL DAILY, (Reported) Mag Hydrox/Al Hydrox/Simeth (Alum-Mag Hydroxide-Simeth Liq), 30 ML PO EVERY 4 HOURS, (Reported) Magnesium Hydroxide* (Milk Of Magnesia*), 30 ML ORAL NEEDED, (Reported) Nitrofurantoin Monohyd/M-Cryst* (Macrobid 100 Mg*), 100 MG ORAL EVERY 12 HOURS [place]-3 Fatty Acids/Fish Oil ([place] 3 1,000 Mg Softgel), 1 EACH PO DAILY, ( Reported) Pantoprazole* (Protonix*), 40 MG ORAL DAILY, (Reported) Quetiapine Fumarate* (Seroquel*), 200 MG ORAL TWICE A DAY, (Reported) Sennosides (Senna), 8.6 MG PO BEDTIME, (Reported) Scheduled PRN Acetaminophen* (Acetaminophen 325MG Tablet*), 650 MG ORAL Q4H PRN for Mild Pain/ Temp > 100.5, (Reported) Patient History Healthcare decision maker Resuscitation status Advanced Directive on File Yes Physical Exam Last 24 Hour Vital Signs Date Time Temp Pulse Resp B/P (MAP) Pulse Ox O2 Delivery O2 Flow Rate FiO2 04/06/20 09:00 Room Air 04/06/20 08:00 97.3 86 18 120/68 (85) 95 04/06/20 04:00 98.2 63 18 98/74 (82) 97 04/06/20 00:10 98.4 69 18 99/74 (82) 94 04/05/20 21:00 Room Air 04/05/20 20:36 Room Air 04/05/20 20:20 98.3 65 18 111/65 99 Room Air 04/05/20 18:00 98.3 65 18 111/65 99 Room Air 04/05/20 17:35 97.8 04/05/20 16:00 99.8 62 20 106/58 98 Room Air 04/05/20 14:10 100.7 62 20 106/68 97 Room Air 04/05/20 14:10 62 20 Room Air 04/05/20 13:59 72 18 112/66 (81) 97 Room Air Intake and Output 04/05/20 04/06/20 19:00 07:00 Intake Total 1110 ml Output Total 1600 ml Balance 1110 ml -1600 ml Intake IV Total 1110 ml Output Urine Total 1600 ml # Voids 1 Laboratory Tests Test 04/05/20 14:45 04/06/20 04:09 04/06/20 04:49 04/06/20 10:49 White Blood Count 21.8 K/UL (4.8-10.8) H 21.6 K/UL (4.8-10.8) H Red Blood Count 2.70 M/UL (4.20-5.40) L 2.65 M/UL (4.20-5.40) L Hemoglobin 8.2 G/DL (12.0-16.0) L 8.1 G/DL (12.0-16.0) L Hematocrit 24.9 % (37.0-47.0) L 24.3 % (37.0-47.0) L Mean Corpuscular Volume 92 FL (80-99) 92 FL (80-99) Mean Corpuscular Hemoglobin 30.5 PG (27.0-31.0) 30.4 PG (27.0-31.0) Mean Corpuscular Hemoglobin Concent 33.1 G/DL (32.0-36.0) 33.1 G/DL (32.0-36.0) Red Cell Distribution Width 15.6 % (11.6-14.8) H 15.4 % (11.6-14.8) H Platelet Count 295 K/UL (150-450) 287 K/UL (150-450) Mean Platelet Volume 4.4 FL (6.5-10.1) L 4.7 FL (6.5-10.1) L Neutrophils (%) (Auto) % (45.0-75.0) % (45.0-75.0) Lymphocytes (%) (Auto) % (20.0-45.0) % (20.0-45.0) Monocytes (%) (Auto) % (1.0-10.0) % (1.0-10.0) Eosinophils (%) (Auto) % (0.0-3.0) % (0.0-3.0) Basophils (%) (Auto) % (0.0-2.0) % (0.0-2.0) Differential Total Cells Counted 100 100 Neutrophils % (Manual) 63 % (45-75) 62 % (45-75) Lymphocytes % (Manual) 27 % (20-45) 18 % (20-45) L Monocytes % (Manual) 6 % (1-10) 12 % (1-10) H Eosinophils % (Manual) 0 % (0-3) 0 % (0-3) Basophils % (Manual) 0 % (0-2) 0 % (0-2) Band Neutrophils 4 % (0-8) 8 % (0-8) Nucleated Red Blood Cells 1 /100 WBC Platelet Estimate Adequate Adequate Platelet Morphology Normal Normal Polychromasia 1+ Anisocytosis 1+ 1+ Urine Color Pale yellow Urine Appearance Cloudy Urine pH 6 (4.5-8.0) Urine Specific [place] 1.010 (1.005-1.035) Urine Protein 3+ (NEGATIVE) H Urine Glucose (UA) Negative (NEGATIVE) Urine Ketones Negative (NEGATIVE) Urine Blood 5+ (NEGATIVE) H Urine Nitrite Positive (NEGATIVE) H Urine Bilirubin Negative (NEGATIVE) Urine Urobilinogen Normal MG/DL (0.0-1.0) Urine Leukocyte Esterase 3+ (NEGATIVE) H Urine RBC 10-15 /HPF (0 - 2) H Urine WBC Tntc /HPF (0 - 2) H Urine Squamous Epithelial Cells Few /LPF (NONE/OCC) Urine Bacteria Many /HPF (NONE) H Sodium Level 140 MMOL/L (136-145) 144 MMOL/L (136-145) Potassium Level 3.8 MMOL/L (3.5-5.1) 3.6 MMOL/L (3.5-5.1) Chloride Level 106 MMOL/L (98-107) 112 MMOL/L (98-107) H Carbon Dioxide Level 16 MMOL/L (21-32) L 16 MMOL/L (21-32) L Anion Gap 18 mmol/L (5-15) H 16 mmol/L (5-15) H Blood Urea Nitrogen 63 mg/dL (7-18) H 61 mg/dL (7-18) H Creatinine 3.2 MG/DL (0.55-1.30) H 3.1 MG/DL (0.55-1.30) H Estimat Glomerular Filtration Rate 15.2 mL/min (>60) 15.8 mL/min (>60) Glucose Level 95 MG/DL (74-106) 85 MG/DL (74-106) Lactic Acid Level 0.70 mmol/L (0.4-2.0) Calcium Level 11.2 MG/DL (8.5-10.1) H 11.2 MG/DL (8.5-10.1) H Phosphorus Level 4.6 MG/DL (2.5-4.9) 4.6 MG/DL (2.5-4.9) Magnesium Level 2.7 MG/DL (1.8-2.4) H Total Bilirubin 0.2 MG/DL (0.2-1.0) Aspartate Amino Transf (AST/SGOT) 21 U/L (15-37) Alanine Aminotransferase (ALT/SGPT) 11 U/L (12-78) L Alkaline Phosphatase 82 U/L (46-116) Troponin I 0.000 ng/mL (0.000-0.056) Pro-B-Type Natriuretic Peptide 7568 pg/mL (0-125) H Total Protein 7.6 G/DL (6.4-8.2) Albumin 2.0 G/DL (3.4-5.0) L Globulin 5.6 g/dL Albumin/Globulin Ratio 0.4 (1.0-2.7) L Lipase 274 U/L (73-393) Uric Acid Pending Iron Level Pending Pending Unsaturated Iron Binding Pending Pending Ferritin 1001 NG/ML (8-388) H Hypochromasia 2+ Spherocytes 1+ Hemoglobin A1c 5.7 % (4.3-6.0) Thyroid Stimulating Hormone (TSH) 0.091 uiU/mL (0.358-3.740) Vitamin B12 Level Pending Folate Pending Microbiology Date/Time Source Procedure Growth Status 04/05/20 14:45 Urine,Clean Catch Urine Culture - Preliminary Resulted Height (Feet): 5 Height (Inches): 5.00 Weight (Pounds): 150 Medications Current Medications Medications (Trade) Dose Ordered Sig/Alix Route PRN Reason Start Time Stop Time Status Last Admin Dose Admin Acetaminophen (Tylenol) 650 mg Q4H PRN ORAL Mild Pain (Pain Scale 1-3) 04/05/20 15:30 05/05/20 15:29 04/06/20 08:56 Bisacodyl (Dulcolax) 10 mg DAILYPRN PRN RECTAL Constipation 04/05/20 16:30 07/04/20 16:29 Ceftriaxone Sodium 2 gm/ Dextrose 110 ml @ 220 mls/hr Q24H IV 04/05/20 22:00 04/12/20 21:59 04/05/20 22:22 Dextrose (Dextrose 50%) 25 ml Q30M PRN IV Hypoglycemia 04/05/20 15:30 07/04/20 15:29 Dextrose (Dextrose 50%) 50 ml Q30M PRN IV Hypoglycemia 04/05/20 15:30 07/04/20 15:29 Diphenhydramine HCl (Benadryl) 25 mg Q6H PRN ORAL Itching/Pruritis 04/05/20 15:30 05/05/20 15:29 Docusate Sodium (Colace) 100 mg TID ORAL 04/06/20 13:00 05/05/20 20:59 Heparin Sodium (Porcine) (Heparin 5000 units/ml) 5,000 units EVERY 12 HOURS SUBQ 04/05/20 21:00 05/20/20 20:59 04/06/20 08:45 Morphine Sulfate (Morphine Sulfate) 1 mg Q6H PRN IVP For Pain 04/05/20 15:30 04/12/20 15:29 Nitroglycerin (Ntg) 0.4 mg Q5M X 3 DOSES PRN SL Prn Chest Pain 04/05/20 15:30 05/05/20 15:29 Ondansetron HCl (Zofran) 4 mg Q6H PRN IVP Nausea & Vomiting 04/05/20 15:30 05/05/20 15:29 Pantoprazole (Protonix) 40 mg Q12HR ORAL 04/06/20 21:00 05/06/20 08:59 Sodium Chloride 1,000 ml @ 50 mls/hr Q20H IVLG 04/05/20 22:00 05/05/20 21:59 04/05/20 22:23 Zolpidem Tartrate (Ambien) 5 mg HSPRN PRN ORAL Insomnia 04/05/20 15:30 04/12/20 15:29 Assessment/Plan Assessment/Plan: Heme Consultation Note REQ MD: Shayan Hurtado [facility] Anemia eval DOS 04/06/2020 HPI 54-year-old female history of CKD, history of dementia presents from [facility] for abnormal labs patient with a hemoglobin of 7.9 no active bleeding history aggravated by chronic kidney disease no alleviating factors severity is mild, constant patient presents for blood transfusion and further evaluation, noted to have a drop in h/h, no bleeding, heme consulted for eval Coded Allergies: No Known Allergies (Unverified , 10/09/18) COVID-19 Screening Contact w/high risk pt: No Recent Travel to affected area: No Experienced COVID-19 symptoms?: No Patient History Past Medical History: see triage record Last Menstrual Period: na Reviewed Nursing Documentation: PMH: Agreed; PSxH: Agreed Nursing Documentation-PMH Hx COPD: Yes Hx Diabetes: Yes - TYPE 2 Hx Gastrointestinal Problems: Yes - GERD Hx Neurological Problems: Yes - Generalized muscle weakness Hx Seizures: Yes - Epilepsy Review of Systems All Other Systems: negative except mentioned in HPI Physical Exam: Vitals: reviewed General: NAD HEENT: nc, at Neck: supple Chest: clear breath sounds bilaterally Cardiovascular: RRR, no s3, s4 Abdomen: soft, nontender, nd Extremities: no cce, normal range of motion Neuro: alert and oriented Labs noted Imaging reviewed Assessment and Recs # Anemia of chronic disease due to underlying chronic medical issues, multifactorial v Gi bleed --> Anemia workup has been ordered, rule out gi bleed --> No evidence of hemolysis is noted, peripheral smear has been reviewed. --> Hgb goal >7. Transfuse prn. --> Epogen or iron at this time is not particularly indicated --> Medications have been reviewed --> low threshold for gi evaluation in case has occult + --> bone marrow biopsy is not indicated given the other more likely causes -> hgb trend 8.2-->8.1 --> no hemolysis is noted # Leukocytosis r/o covid, pna --> on abx as per id --> on uti ctx rx # UTI (urinary tract infection) --> on abx # Gerd --> on ppi # Dehydration --> per renal # Dvt ppx --> heparin sq The timing of this note does not necessarily reflect the time of the patient was seen. Greatly appreciate consultation. David Ivey MD April 06, 2020 11:38
[2020-04-06 11:43] LABS: % IRON SATURATION 21 % (15-50); IRON 37 ug/dL (50-175); TOTAL IRON BINDING CAPACITY 179 ug/dL (250-450)
--- NOTE | 2020-04-06 13:44 | History and Physical Report ---
DATE OF ADMISSION: 04/05/2020 DATE AND TIME SEEN: 04/06/2020 at 9 a.m. CONSULTANTS: 1. Jerel Walker MD. 2. Neo Nelson MD. 3. Freddie Valentine MD. 4. David Ivey MD. 5. Sohan Lane MD. CHIEF COMPLAINT: Symptomatic anemia, fever, suspect COVID. BRIEF HISTORY: This is a 54-year-old female from [facility], presented with above-mentioned diagnoses. Currently, calm in bed, O2 mask in place, slight short of breath. No complaint. REVIEW OF SYSTEMS: The patient is very sleepy. PAST MEDICAL HISTORY: Include DJD, diabetes, COPD, seizure, schizophrenia, GERD, anemia, and blindness. PAST SURGICAL HISTORY: Unknown. MEDICATIONS: Include Protonix, Colace, ceftriaxone, heparin, Tylenol, Zofran, morphine, zolpidem, nitroglycerin, vancomycin, cefepime. ALLERGIES: Denies. SOCIAL HISTORY: The patient refusing to answer. PHYSICAL EXAMINATION: GENERAL: Sleeping in bed, refusing to answer questions, lethargic, sleepy. VITAL SIGNS: Temperature 98 degrees, pulse 63, respirations 18, blood pressure 90/74. HEENT: Normocephalic, atraumatic. NECK: Trachea is midline. CARDIOVASCULAR: No peripheral edema. PULMONARY: Slight short of breath on room air. ABDOMEN: No apparent wounds. EXTREMITIES: No cyanosis or edema. LABORATORY AND DIAGNOSTIC DATA: Labs at this time show white count 21, hemoglobin and hematocrit 8.1 and 24, platelets 287. Chloride 112, CO2 16, BUN and creatinine 61 and 3.1. TSH 0.091. Urinalysis shows positive nitrites and 5+ blood. ASSESSMENT: Symptomatic anemia, UTI, sepsis, leukocytosis, fever, suspect COVID, , CKD, diabetes, COPD, seizure, schizophrenia, GERD, anemia, and blindness. PLAN: O2 and pulmonary treatment. Antibiotics per Infectious Disease. Blood pressure and blood sugar control. Nephrology followup. Dietary followup. Endocrine and Hematology followup. Soto Hurtado D.O. DR: MARTHA JOB#: [id number] CC:
[2020-04-06] MEDS: D5 1/2NS 1,000 ML IV SCH ×2 (14:16→22:37)
--- NOTE | 2020-04-06 14:38 | Infectious Diseases Prog Note ---
Assessment/Plan Assessment/Plan Assessment: SEpsis UTI -u/a wbc tnct, nit +, leuk +3; ucx p Low grade fever- r/o COVID19 (resident [place] large outbreak) Leukocytosis -04/05 CXR; no acute process -Bx p ANemia CKD GERD seizure disorder Dementia SNF resident (T[facility] henderson) Plan: -Switch Ceftriaxone #2 to Zosyn pending urine culture -04/05 SP IV Vancomycin x1, Cefepime x1 -f/u cx -Monitor CBC/CMP, temperatures -COVID19 isolation and testing -CXR am -Cdiff if diarrhea Thank you for consulting [facility]. Will continue to follow along with you, Discussed with RN. Subjective Allergies: Coded Allergies: No Known Allergies (Unverified , 10/09/18) Subjective afebrile in 24hrs At RA wbc remains at 21 Objective Vital Signs Last 24 Hour Vital Signs Date Time Temp Pulse Resp B/P (MAP) Pulse Ox O2 Delivery O2 Flow Rate FiO2 04/06/20 12:45 97.9 69 17 105/66 (79) 96 04/06/20 11:45 98.6 60 18 92/57 (69) 96 04/06/20 11:15 97.9 77 18 118/69 (85) 97 04/06/20 10:45 97.5 75 16 126/79 (95) 95 04/06/20 10:15 98.0 80 18 122/71 (88) 96 04/06/20 09:45 97.3 86 18 120/68 (85) 95 04/06/20 09:00 Room Air 04/06/20 08:00 97.3 86 18 120/68 (85) 95 04/06/20 04:00 98.2 63 18 98/74 (82) 97 04/06/20 00:10 98.4 69 18 99/74 (82) 94 04/05/20 21:00 Room Air 04/05/20 20:36 Room Air 04/05/20 20:20 98.3 65 18 111/65 99 Room Air 04/05/20 18:00 98.3 65 18 111/65 99 Room Air 04/05/20 17:35 97.8 04/05/20 16:00 99.8 62 20 106/58 98 Room Air Height (Feet): 5 Height (Inches): 5.00 Weight (Pounds): 150 Objective not examined to limit COVID19 exposure Microbiology Date/Time Source Procedure Growth Status 04/05/20 14:45 Urine,Clean Catch Urine Culture - Preliminary Resulted Laboratory Tests Test 04/05/20 14:45 04/06/20 04:09 04/06/20 04:49 04/06/20 10:49 White Blood Count 21.8 K/UL (4.8-10.8) H 21.6 K/UL (4.8-10.8) H Red Blood Count 2.70 M/UL (4.20-5.40) L 2.65 M/UL (4.20-5.40) L Hemoglobin 8.2 G/DL (12.0-16.0) L 8.1 G/DL (12.0-16.0) L Hematocrit 24.9 % (37.0-47.0) L 24.3 % (37.0-47.0) L Mean Corpuscular Volume 92 FL (80-99) 92 FL (80-99) Mean Corpuscular Hemoglobin 30.5 PG (27.0-31.0) 30.4 PG (27.0-31.0) Mean Corpuscular Hemoglobin Concent 33.1 G/DL (32.0-36.0) 33.1 G/DL (32.0-36.0) Red Cell Distribution Width 15.6 % (11.6-14.8) H 15.4 % (11.6-14.8) H Platelet Count 295 K/UL (150-450) 287 K/UL (150-450) Mean Platelet Volume 4.4 FL (6.5-10.1) L 4.7 FL (6.5-10.1) L Neutrophils (%) (Auto) % (45.0-75.0) % (45.0-75.0) Lymphocytes (%) (Auto) % (20.0-45.0) % (20.0-45.0) Monocytes (%) (Auto) % (1.0-10.0) % (1.0-10.0) Eosinophils (%) (Auto) % (0.0-3.0) % (0.0-3.0) Basophils (%) (Auto) % (0.0-2.0) % (0.0-2.0) Differential Total Cells Counted 100 100 Neutrophils % (Manual) 63 % (45-75) 62 % (45-75) Lymphocytes % (Manual) 27 % (20-45) 18 % (20-45) L Monocytes % (Manual) 6 % (1-10) 12 % (1-10) H Eosinophils % (Manual) 0 % (0-3) 0 % (0-3) Basophils % (Manual) 0 % (0-2) 0 % (0-2) Band Neutrophils 4 % (0-8) 8 % (0-8) Nucleated Red Blood Cells 1 /100 WBC Platelet Estimate Adequate Adequate Platelet Morphology Normal Normal Polychromasia 1+ Anisocytosis 1+ 1+ Urine Color Pale yellow Urine Appearance Cloudy Urine pH 6 (4.5-8.0) Urine Specific [place] 1.010 (1.005-1.035) Urine Protein 3+ (NEGATIVE) H Urine Glucose (UA) Negative (NEGATIVE) Urine Ketones Negative (NEGATIVE) Urine Blood 5+ (NEGATIVE) H Urine Nitrite Positive (NEGATIVE) H Urine Bilirubin Negative (NEGATIVE) Urine Urobilinogen Normal MG/DL (0.0-1.0) Urine Leukocyte Esterase 3+ (NEGATIVE) H Urine RBC 10-15 /HPF (0 - 2) H Urine WBC Tntc /HPF (0 - 2) H Urine Squamous Epithelial Cells Few /LPF (NONE/OCC) Urine Bacteria Many /HPF (NONE) H Sodium Level 140 MMOL/L (136-145) 144 MMOL/L (136-145) Potassium Level 3.8 MMOL/L (3.5-5.1) 3.6 MMOL/L (3.5-5.1) Chloride Level 106 MMOL/L (98-107) 112 MMOL/L (98-107) H Carbon Dioxide Level 16 MMOL/L (21-32) L 16 MMOL/L (21-32) L Anion Gap 18 mmol/L (5-15) H 16 mmol/L (5-15) H Blood Urea Nitrogen 63 mg/dL (7-18) H 61 mg/dL (7-18) H Creatinine 3.2 MG/DL (0.55-1.30) H 3.1 MG/DL (0.55-1.30) H Estimat Glomerular Filtration Rate 15.2 mL/min (>60) 15.8 mL/min (>60) Glucose Level 95 MG/DL (74-106) 85 MG/DL (74-106) Lactic Acid Level 0.70 mmol/L (0.4-2.0) Calcium Level 11.2 MG/DL (8.5-10.1) H 11.2 MG/DL (8.5-10.1) H Phosphorus Level 4.6 MG/DL (2.5-4.9) 4.6 MG/DL (2.5-4.9) Magnesium Level 2.7 MG/DL (1.8-2.4) H Total Bilirubin 0.2 MG/DL (0.2-1.0) Aspartate Amino Transf (AST/SGOT) 21 U/L (15-37) Alanine Aminotransferase (ALT/SGPT) 11 U/L (12-78) L Alkaline Phosphatase 82 U/L (46-116) Troponin I 0.000 ng/mL (0.000-0.056) Pro-B-Type Natriuretic Peptide 7568 pg/mL (0-125) H Total Protein 7.6 G/DL (6.4-8.2) Albumin 2.0 G/DL (3.4-5.0) L Globulin 5.6 g/dL Albumin/Globulin Ratio 0.4 (1.0-2.7) L Lipase 274 U/L (73-393) Uric Acid 9.4 MG/DL (2.6-7.2) H Iron Level Pending 37 ug/dL (50-175) L Unsaturated Iron Binding Pending 142 ug/dL (112-346) Ferritin 1001 NG/ML (8-388) H Hypochromasia 2+ Spherocytes 1+ Hemoglobin A1c 5.7 % (4.3-6.0) Thyroid Stimulating Hormone (TSH) 0.091 uiU/mL (0.358-3.740) Total Iron Binding Capacity 179 ug/dL (250-450) L Percent Iron Saturation 21 % (15-50) Vitamin B12 Level 1351 PG/ML (193-986) H Folate 7.9 NG/ML (8.6-58.9) L Current Medications Medications (Trade) Dose Ordered Sig/Alix Route PRN Reason Start Time Stop Time Status Last Admin Dose Admin Acetaminophen (Tylenol) 650 mg Q4H PRN ORAL Mild Pain (Pain Scale 1-3) 04/05/20 15:30 05/05/20 15:29 04/06/20 08:56 Bisacodyl (Dulcolax) 10 mg DAILYPRN PRN RECTAL Constipation 04/05/20 16:30 07/04/20 16:29 Ceftriaxone Sodium 2 gm/ Dextrose 110 ml @ 220 mls/hr Q24H IV 04/05/20 22:00 04/12/20 21:59 04/05/20 22:22 Citalopram Hydrobromide (CeleXA) 20 mg DAILY ORAL 04/07/20 09:00 05/07/20 08:59 Dextrose (Dextrose 50%) 25 ml Q30M PRN IV Hypoglycemia 04/05/20 15:30 07/04/20 15:29 Dextrose (Dextrose 50%) 50 ml Q30M PRN IV Hypoglycemia 04/05/20 15:30 07/04/20 15:29 Dextrose/Sodium Chloride 1,000 ml @ 100 mls/hr Q10H IV 04/06/20 12:37 05/06/20 12:36 04/06/20 14:16 Diphenhydramine HCl (Benadryl) 25 mg Q6H PRN ORAL Itching/Pruritis 04/05/20 15:30 05/05/20 15:29 Divalproex Sodium (Depakote ER) 500 mg EVERY 12 HOURS ORAL 04/06/20 21:00 05/06/20 20:59 Docusate Sodium (Colace) 100 mg TID ORAL 04/06/20 13:00 05/05/20 20:59 04/06/20 12:43 Heparin Sodium (Porcine) (Heparin 5000 units/ml) 5,000 units EVERY 12 HOURS SUBQ 04/05/20 21:00 05/20/20 20:59 04/06/20 08:45 Lorazepam (Ativan) 1 mg Q6H PRN ORAL For Anxiety 04/06/20 14:30 04/13/20 14:29 Morphine Sulfate (Morphine Sulfate) 1 mg Q6H PRN IVP For Pain 04/05/20 15:30 04/12/20 15:29 Nitroglycerin (Ntg) 0.4 mg Q5M X 3 DOSES PRN SL Prn Chest Pain 04/05/20 15:30 05/05/20 15:29 Olanzapine (ZyPREXA) 5 mg BID ORAL 04/06/20 18:00 05/21/20 17:59 Ondansetron HCl (Zofran) 4 mg Q6H PRN IVP Nausea & Vomiting 04/05/20 15:30 05/05/20 15:29 Pantoprazole (Protonix) 40 mg Q12HR ORAL 04/06/20 21:00 05/06/20 08:59 Quetiapine Fumarate (SEROqueL) 200 mg QHS ORAL 04/06/20 21:00 05/21/20 20:59 Zolpidem Tartrate (Ambien) 5 mg HSPRN PRN ORAL Insomnia 04/05/20 15:30 04/12/20 15:29 Kari Chacon M.D. April 06, 2020 14:38
--- NOTE | 2020-04-06 15:39 | Diagnostic Imaging Report ---
Indication: Cough Technique: One view of the chest Comparison: 04/05/2020 Findings: Less optimal less optimal inspiration currently. There is suggestion of increasing hazy bilateral infiltrates, left greater than right, although this may in part be an artifact of lower lung volumes. The pleural spaces are clear. The heart size is normal. Impression: Questionable developing bilateral hazy infiltrates, versus artifact of low lung volumes. Correlate with clinical findings
[2020-04-06] MEDS ORDERED: Piperacillin/Tazobactam 3.375 GM in NS 110 ML IVPB SCH (18:00)
[2020-04-06] MEDS: QUEtiapine 200mg tab ORAL SCH (21:19)
[2020-04-06] MEDS: Depakote ER 500mg tab ORAL SCH (21:20)
--- NOTE | 2020-04-06 23:59 | Consultation ---
DATE OF CONSULTATION: 04/06/2020 HISTORY OF PRESENT ILLNESS: This is a 54-year-old female patient and she was admitted to [facility]. The patient was recently admitted for anemia and altered mental status. She is in the hospital confused and disorganized. She has urinary tract infection, fever, symptomatic anemia, rule out COVID-19. However, she has had altered mental status, confusion, overall below baseline. That is why her attending has requested daily psychiatric consultation at this time. She has had anemia, fever, mood lability. She came in from [facility]. When I saw her and assessed in the room, she is very delusional, disorganized. Apparently, she is visually impaired. She is legally blind. Yesterday, she was trying to walk around the room, actually fell down. She seems to have no insight into her physical or her psychiatric condition at this time. Her chief complaint was, she says "I am , that's why I am here." That was the chief complaint even though she has never had any symptoms of recently or even in the test, she is convinced that . Very disorganized, very poor historian. PAST MEDICAL HISTORY: Patient has degenerative joint disease, COPD, diabetes, seizure disorder, GERD, anemia, blindness. ALLERGIES: No known drug allergies. PSYCHOTROPIC MEDICATIONS ON ADMISSION: Per chart, she is on Seroquel, Zyprexa, Celexa, Depakote. She is unsure of her dosages. SUBSTANCE ABUSE HISTORY: No known history of any drug or alcohol use. PAIN ASSESSMENT: 02/06. FAMILY PSYCHIATRIC HISTORY: She denies any family psychiatric history. DEVELOPMENTAL PROBLEMS: Denies. SOCIAL HISTORY: Patient lives in [facility]. Financially supported by [employer] and Medicare. PSYCHIATRIC HISTORY: Schizoaffective, bipolar type. She apparently has had some previous psychiatric admissions. STRENGTHS: She is motivated to get better and has a place to live. WEAKNESSES: She is impulsive. Minimal support system. MENTAL STATUS EXAMINATION: A 54-year-old female. Her appearance is disheveled. Attitude, irritable and agitated. Affect is labile. Intellect, poor because she does not know current events, does not know last four presidents. Mood, depressed and anxious. Motor activity, psychomotor agitation. Her attention span is poor because she cannot do serial 7s, spell world backwards. Orientation x2. She is oriented to person and place, not time or situation. Speech is pressured and nonsensical. Thought process, disorganized and illogical. Thought content, auditory hallucinations and paranoid delusions. Perception is poor because she has perceptual disturbance such as auditory hallucinations and paranoid delusions. Abstract reasoning is poor because she does not understand proverbs, only has concrete thinking. Insight is poor. She does not recognize having a psychiatric disorder. Judgment is poor because she cannot make clear medical decisions for herself. She denies any current suicidal or homicidal thoughts. She is very confused, disorganized, combative. As far as short-term memory, 2/3 recall after a 5-minute delay, so poor short-term memory. Long-term memory is intact based on the knowledge of long-term events in her life such as high school that she went to. Her gait is abnormal. DIAGNOSES: Schizoaffective, bipolar type, no secondary. Medical includes degenerative joint disease, diabetes, COPD, GERD, anemia, blindness, psychosocial stressors, financial. Function impairment is severe. PLAN: I am going to treat this patient with a psychotropic medication regimen consisting of Zyprexa 5 mg twice a day and Celexa at a dose of 20 mg daily, Ativan 1 every 6 hours p.r.n. anxiety and agitation, and also Seroquel 200 mg at bedtime, add Depakote at a dose of 250 mg twice a day. Twenty minutes of cognitive behavioral therapy was provided to help identify automatic negative thoughts and help her convert negative thoughts to more positive thoughts to reduce depression, anxiety, mood lability. Chart reviewed. Discussed with staff. Seen and assessed at room. I would like to thank Dr. Soto Hurtado for this interesting consultation. Pamela Maldonado M.D. DR: JASPER JOB#: [id number] CC:
[2020-04-07] VITALS: BP 110/53
[2020-04-07 04:00] VITALS: BP 102/57
[2020-04-07 06:19] LABS: HEMATOCRIT 24.1 % (37.0-47.0); HEMOGLOBIN 8.1 G/DL (12.0-16.0); MEAN CORPUSCULAR VOLUME 93 FL (80-99); PLATELET COUNT 288 K/UL (150-450); RED CELL DISTRIBUTION WIDTH 15.9 % (11.6-14.8); WHITE BLOOD COUNT 19.1 K/UL (4.8-10.8)
[2020-04-07 06:46] LABS: ALANINE AMINOTRANSFERASE 8 U/L (12-78); ALBUMIN 1.6 G/DL (3.4-5.0); ALBUMIN/GLOBULIN RATIO 0.3 (1.0-2.7); ALKALINE PHOSPHATASE 80 U/L (46-116); ANION GAP 16 mmol/L (5-15); ASPARTATE AMINO TRANSFERASE 20 U/L (15-37); BILIRUBIN,TOTAL 0.1 MG/DL (0.2-1.0); BLOOD UREA NITROGEN 64 mg/dL (7-18); CALCIUM 10.7 MG/DL (8.5-10.1); CARBON DIOXIDE 16 MMOL/L (21-32); CHLORIDE 114 MMOL/L (98-107); CREATININE 3.1 MG/DL (0.55-1.30); PHOSPHORUS 3.7 MG/DL (2.5-4.9); POTASSIUM 3.7 MMOL/L (3.5-5.1); SODIUM 146 MMOL/L (136-145)
[2020-04-07 08:00] VITALS: BP 127/67
[2020-04-07] MEDS: Docusate 100mg cap ORAL SCH ×3 (08:13→17:24)
[2020-04-07] MEDS: Depakote ER 500mg tab ORAL SCH ×2 (08:13→20:50)
[2020-04-07] MEDS: Citalopram Hydrobromide 10mg Tab ORAL SCH (08:13)
[2020-04-07] MEDS: Heparin 5000 units/ml inj SUBQ SCH ×2 (08:14→21:02)
[2020-04-07] MEDS: D5 1/2NS 1,000 ML IV SCH (08:37)
[2020-04-07] MEDS ORDERED: Levofloxacin 750mg tab ORAL SCH (09:00)
--- NOTE | 2020-04-07 09:47 | General Progress Note ---
Assessment/Plan Problem List: (1) CKD (chronic kidney disease) ICD Codes: N18.9 - Chronic kidney disease, unspecified SNOMED: 011193791 (2) Diabetes ICD Codes: E11.9 - Type 2 diabetes mellitus without complications SNOMED: 54595177 (3) COPD (chronic obstructive pulmonary disease) ICD Codes: J44.9 - Chronic obstructive pulmonary disease, unspecified SNOMED: 89687948 (4) Seizure ICD Codes: R56.9 - Unspecified convulsions SNOMED: 75200258 (5) GERD (gastroesophageal reflux disease) ICD Codes: K21.9 - Gastro-esophageal reflux disease without esophagitis SNOMED: 916322525 (6) Blind ICD Codes: H54.7 - Unspecified visual loss SNOMED: 731513258 (7) Behavioral change ICD Codes: R46.89 - Other symptoms and signs involving appearance and behavior SNOMED: 083021718 (8) UTI (urinary tract infection) ICD Codes: N39.0 - Urinary tract infection, site not specified SNOMED: 78428341 Qualifiers: Qualified Codes: N30.01 - Acute cystitis with hematuria (9) Fever ICD Codes: R50.9 - Fever, unspecified SNOMED: 737564875 Qualifiers: Qualified Codes: R50.9 - Fever, unspecified (10) Symptomatic anemia ICD Codes: D64.9 - Anemia, unspecified SNOMED: 924706113 (11) Suspected COVID-19 virus infection ICD Codes: Z20.828 - Contact with and (suspected) exposure to other viral communicable diseases SNOMED: 635859796 Status: unchanged Assessment/Plan: pt diet abx cbc bmp am Subjective Constitutional: Reports: weakness Allergies: Coded Allergies: No Known Allergies (Unverified , 10/09/18) All Systems: reviewed and negative except above Subjective sleepy calm Objective Last 24 Hour Vital Signs Date Time Temp Pulse Resp B/P (MAP) Pulse Ox O2 Delivery O2 Flow Rate FiO2 04/07/20 08:00 98.6 68 19 127/67 (87) 95 04/07/20 04:00 98.6 61 20 102/57 (72) 93 04/07/20 00:00 98.4 69 18 110/53 (72) 95 04/06/20 21:00 Room Air 04/06/20 20:00 98.4 82 18 100/64 (76) 96 04/06/20 16:00 98.6 72 18 101/59 (73) 97 04/06/20 14:45 97.8 71 16 109/64 (79) 96 04/06/20 13:45 97.5 75 18 111/67 (82) 96 04/06/20 12:45 97.9 69 17 105/66 (79) 96 04/06/20 11:45 98.6 60 18 92/57 (69) 96 04/06/20 11:15 97.9 77 18 118/69 (85) 97 04/06/20 10:45 97.5 75 16 126/79 (95) 95 04/06/20 10:15 98.0 80 18 122/71 (88) 96 Intake and Output 04/06/20 04/07/20 19:00 07:00 Intake Total 1610 ml 240 ml Balance 1610 ml 240 ml Intake Oral 240 ml IV Total 410 ml Other 1200 ml # Voids 3 Laboratory Tests 04/06/20 10:49: Iron Level 37L, Total Iron Binding Capacity 179L, Percent Iron Saturation 21, Unsaturated Iron Binding 142, Vitamin B12 Level 1351H, Folate 7.9L 04/07/20 06:00: White Blood Count 19.1H, Red Blood Count 2.60L, Hemoglobin 8.1L, Hematocrit 24.1L, Mean Corpuscular Volume 93, Mean Corpuscular Hemoglobin 31.1H, Mean Corpuscular Hemoglobin Concent 33.5, Red Cell Distribution Width 15.9H, Platelet Count 288, Mean Platelet Volume 4.5L, Neutrophils (%) (Auto) , Lymphocytes (%) (Auto) , Monocytes (%) (Auto) , Eosinophils (%) (Auto) , Basophils (%) (Auto) , Neutrophils % (Manual) [Pending], Lymphocytes % (Manual) [Pending], Platelet Estimate [Pending], Platelet Morphology [Pending], Sodium Level 146H, Potassium Level 3.7, Chloride Level 114H, Carbon Dioxide Level 16L, Anion Gap 16H, Blood Urea Nitrogen 64H, Creatinine 3.1H, Estimat Glomerular Filtration Rate 15.8, Glucose Level 89, Uric Acid 9.9H, Calcium Level 10.7H, Phosphorus Level 3.7, Magnesium Level 2.6H, Total Bilirubin 0.1L, Aspartate Amino Transf (AST/SGOT) 20, Alanine Aminotransferase (ALT/SGPT) 8L, Alkaline Phosphatase 80, Total Protein 7.2, Albumin 1.6L, Globulin 5.6, Albumin/Globulin Ratio 0.3L Height (Feet): 5 Height (Inches): 5.00 Weight (Pounds): 150 General Appearance: lethargic EENT: normal ENT inspection Neck: normal alignment Cardiovascular: normal rate, regular rhythm Respiratory/Chest: no respiratory distress, no accessory muscle use Extremities: normal range of motion Skin: normal pigmentation Soto Hurtado DO April 07, 2020 09:47
--- NOTE | 2020-04-07 10:49 | Pulmonology Progress Note ---
Subjective Interval Events: None new Constitutional: Reports: no symptoms HEENT: Repors: no symptoms Respiratory: Reports: no symptoms Cardiovascular: Reports: no symptoms Gastrointestinal/Abdominal: Reports: no symptoms Allergies: Coded Allergies: No Known Allergies (Unverified , 10/09/18) All Systems: reviewed and negative except above Objective Last 24 Hour Vital Signs Date Time Temp Pulse Resp B/P (MAP) Pulse Ox O2 Delivery O2 Flow Rate FiO2 04/07/20 08:00 98.6 68 19 127/67 (87) 95 04/07/20 04:00 98.6 61 20 102/57 (72) 93 04/07/20 00:00 98.4 69 18 110/53 (72) 95 04/06/20 21:00 Room Air 04/06/20 20:00 98.4 82 18 100/64 (76) 96 04/06/20 16:00 98.6 72 18 101/59 (73) 97 04/06/20 14:45 97.8 71 16 109/64 (79) 96 04/06/20 13:45 97.5 75 18 111/67 (82) 96 04/06/20 12:45 97.9 69 17 105/66 (79) 96 04/06/20 11:45 98.6 60 18 92/57 (69) 96 04/06/20 11:15 97.9 77 18 118/69 (85) 97 Intake and Output 04/06/20 04/07/20 19:00 07:00 Intake Total 1610 ml 240 ml Balance 1610 ml 240 ml Intake Oral 240 ml IV Total 410 ml Other 1200 ml # Voids 3 General Appearance: no acute distress HEENT: normocephalic Respiratory/Chest: chest wall non-tender, lungs clear Cardiovascular: normal peripheral pulses, normal rate Abdomen: normal bowel sounds Microbiology Date/Time Source Procedure Growth Status 04/05/20 14:45 Blood Blood Culture - Preliminary NO GROWTH AFTER 24 HOURS Resulted 04/05/20 14:30 Blood Blood Culture - Preliminary NO GROWTH AFTER 24 HOURS Resulted 04/05/20 14:45 Nasopharynx Coronavirus COVID-19 PCR ([facility]) - Final Complete 04/05/20 14:45 Urine,Clean Catch Urine Culture - Preliminary Gram Negative Henri Resulted Laboratory Tests 04/07/20 06:00: White Blood Count 19.1H, Red Blood Count 2.60L, Hemoglobin 8.1L, Hematocrit 24.1L, Mean Corpuscular Volume 93, Mean Corpuscular Hemoglobin 31.1H, Mean Corpuscular Hemoglobin Concent 33.5, Red Cell Distribution Width 15.9H, Platelet Count 288, Mean Platelet Volume 4.5L, Neutrophils (%) (Auto) , Lymphocytes (%) (Auto) , Monocytes (%) (Auto) , Eosinophils (%) (Auto) , Basophils (%) (Auto) , Neutrophils % (Manual) [Pending], Lymphocytes % (Manual) [Pending], Platelet Estimate [Pending], Platelet Morphology [Pending], Sodium Level 146H, Potassium Level 3.7, Chloride Level 114H, Carbon Dioxide Level 16L, Anion Gap 16H, Blood Urea Nitrogen 64H, Creatinine 3.1H, Estimat Glomerular Filtration Rate 15.8, Glucose Level 89, Uric Acid 9.9H, Calcium Level 10.7H, Phosphorus Level 3.7, Magnesium Level 2.6H, Total Bilirubin 0.1L, Aspartate Amino Transf (AST/SGOT) 20, Alanine Aminotransferase (ALT/SGPT) 8L, Alkaline Phosphatase 80, Total Protein 7.2, Albumin 1.6L, Globulin 5.6, Albumin/Globulin Ratio 0.3L Current Medications Medications (Trade) Dose Ordered Sig/Alix Route PRN Reason Start Time Stop Time Status Last Admin Dose Admin Acetaminophen (Tylenol) 650 mg Q4H PRN ORAL Mild Pain (Pain Scale 1-3) 04/05/20 15:30 05/05/20 15:29 04/06/20 08:56 Bisacodyl (Dulcolax) 10 mg DAILYPRN PRN RECTAL Constipation 04/05/20 16:30 07/04/20 16:29 Citalopram Hydrobromide (CeleXA) 20 mg DAILY ORAL 04/07/20 09:00 05/07/20 08:59 04/07/20 08:13 Dextrose (Dextrose 50%) 25 ml Q30M PRN IV Hypoglycemia 04/05/20 15:30 07/04/20 15:29 Dextrose (Dextrose 50%) 50 ml Q30M PRN IV Hypoglycemia 04/05/20 15:30 07/04/20 15:29 Dextrose/Sodium Chloride 1,000 ml @ 100 mls/hr Q10H IV 04/06/20 12:37 05/06/20 12:36 04/06/20 14:16 Diphenhydramine HCl (Benadryl) 25 mg Q6H PRN ORAL Itching/Pruritis 04/05/20 15:30 05/05/20 15:29 Divalproex Sodium (Depakote ER) 500 mg EVERY 12 HOURS ORAL 04/06/20 21:00 05/06/20 20:59 04/07/20 08:13 Docusate Sodium (Colace) 100 mg TID ORAL 04/06/20 13:00 05/05/20 20:59 04/07/20 08:13 Heparin Sodium (Porcine) (Heparin 5000 units/ml) 5,000 units EVERY 12 HOURS SUBQ 04/05/20 21:00 05/20/20 20:59 04/07/20 08:14 Levofloxacin (Levaquin) 500 mg QOD ORAL 04/09/20 09:00 04/16/20 08:59 Levofloxacin (Levaquin) 750 mg NOW ORAL 04/07/20 09:00 04/07/20 10:59 04/07/20 09:43 Levothyroxine Sodium (Synthroid) 100 mcg DAILY@0630 ORAL 04/07/20 06:30 05/07/20 06:29 Lorazepam (Ativan) 1 mg Q6H PRN ORAL For Anxiety 04/06/20 14:30 04/13/20 14:29 Morphine Sulfate (Morphine Sulfate) 1 mg Q6H PRN IVP For Pain 04/05/20 15:30 04/12/20 15:29 Nitroglycerin (Ntg) 0.4 mg Q5M X 3 DOSES PRN SL Prn Chest Pain 04/05/20 15:30 05/05/20 15:29 Olanzapine (ZyPREXA) 5 mg BID ORAL 04/06/20 18:00 05/21/20 17:59 04/07/20 08:13 Ondansetron HCl (Zofran) 4 mg Q6H PRN IVP Nausea & Vomiting 04/05/20 15:30 05/05/20 15:29 Pantoprazole (Protonix) 40 mg Q12HR ORAL 04/06/20 21:00 05/06/20 08:59 04/07/20 08:13 Quetiapine Fumarate (SEROqueL) 200 mg QHS ORAL 04/06/20 21:00 05/21/20 20:59 04/06/20 21:19 Zolpidem Tartrate (Ambien) 5 mg HSPRN PRN ORAL Insomnia 04/05/20 15:30 04/12/20 15:29 Assessment/Plan Assessment/Plan IMPRESSION: 1. Leukocytosis. 2. Anemia. 3. CKD. 4. Seizure disorder. 5. COPD. 6. [facility] resident. DISCUSSION: Seen by ID; continue empiric antibiotics. Changes reviewed per ID Continue medications. I will follow. Respiratory status is stable Jerel Walker M.D. Jerel Walker MD April 07, 2020 10:49
[2020-04-07 12:00] VITALS: BP 107/55
--- NOTE | 2020-04-07 12:48 | Nephrology Progress Note ---
Assessment/Plan Problem List: (1) Renal failure (ARF), acute on chronic (2) UTI (urinary tract infection) (3) Blind (4) Suspected COVID-19 virus infection (5) Dehydration (6) Symptomatic anemia (7) Seizure Assessment Renal failure most likely acute Underlying chronic kidney disease History of diabetes mellitus, but hemoglobin A1c is 5.7 Severe anemia Hypercalcemia Leukocytosis, UTI Seizure disorder Patient blind Has history of psych disease shelter resident Plan Discussed with RN Emily Patient needs IV hydration, D5W 150 cc an hour ordered RN reports that the patient refuses IV fluid and also refuses medication Continue antibiotics Monitor renal parameters Urine studies, if urine specimen can be obtained Subjective ROS Limited/Unobtainable: No Constitutional: Reports: malaise Objective Objective Last 24 Hour Vital Signs Date Time Temp Pulse Resp B/P (MAP) Pulse Ox O2 Delivery O2 Flow Rate FiO2 04/07/20 12:00 97.3 64 17 107/55 (72) 93 04/07/20 08:00 98.6 68 19 127/67 (87) 95 04/07/20 04:00 98.6 61 20 102/57 (72) 93 04/07/20 00:00 98.4 69 18 110/53 (72) 95 04/06/20 21:00 Room Air 04/06/20 20:00 98.4 82 18 100/64 (76) 96 04/06/20 16:00 98.6 72 18 101/59 (73) 97 04/06/20 14:45 97.8 71 16 109/64 (79) 96 04/06/20 13:45 97.5 75 18 111/67 (82) 96 04/06/20 12:45 97.9 69 17 105/66 (79) 96 Intake and Output 04/06/20 04/07/20 19:00 07:00 Intake Total 1610 ml 240 ml Balance 1610 ml 240 ml Intake Oral 240 ml IV Total 410 ml Other 1200 ml # Voids 3 Laboratory Tests 04/07/20 06:00: White Blood Count 19.1H, Red Blood Count 2.60L, Hemoglobin 8.1L, Hematocrit 24.1L, Mean Corpuscular Volume 93, Mean Corpuscular Hemoglobin 31.1H, Mean Corpuscular Hemoglobin Concent 33.5, Red Cell Distribution Width 15.9H, Platelet Count 288, Mean Platelet Volume 4.5L, Neutrophils (%) (Auto) , Lymphocytes (%) (Auto) , Monocytes (%) (Auto) , Eosinophils (%) (Auto) , Basophils (%) (Auto) , Differential Total Cells Counted 100, Neutrophils % ( Manual) 70, Lymphocytes % (Manual) 13L, Monocytes % (Manual) 10, Eosinophils % ( Manual) 0, Basophils % (Manual) 1, Band Neutrophils 6, Platelet Estimate Adequate, Platelet Morphology Normal, Hypochromasia 2+, Anisocytosis 1+, Spherocytes 1+, Sodium Level 146H, Potassium Level 3.7, Chloride Level 114H, Carbon Dioxide Level 16L, Anion Gap 16H, Blood Urea Nitrogen 64H, Creatinine 3.1H, Estimat Glomerular Filtration Rate 15.8, Glucose Level 89, Uric Acid 9.9H , Calcium Level 10.7H, Phosphorus Level 3.7, Magnesium Level 2.6H, Total Bilirubin 0.1L, Aspartate Amino Transf (AST/SGOT) 20, Alanine Aminotransferase ( ALT/SGPT) 8L, Alkaline Phosphatase 80, Total Protein 7.2, Albumin 1.6L, Globulin 5.6, Albumin/Globulin Ratio 0.3L Height (Feet): 5 Height (Inches): 5.00 Weight (Pounds): 150 General Appearance: no apparent distress Cardiovascular: normal rate Respiratory/Chest: decreased breath sounds Sohan Lane MD April 07, 2020 12:48
[2020-04-07 16:00] VITALS: BP 99/56
--- NOTE | 2020-04-07 17:00 | Progress Note ---
DATE: 04/07/2020 SUBJECTIVE: This is a 54-year-old female patient. She is blind, but she also has confusion, urinary tract infection, fever, anemia, rule out COVID-19. She has altered mental status and extreme mood lability. She has a lot of agitation and irritability. That is why, her attending has requested daily psychiatric consultation. MENTAL STATUS EXAMINATION: A 54-year-old female. Appearance is disheveled. Attitude, irritable and agitated. Affect, guarded and restricted. Intellect poor. Mood, depressed and anxious. Motor activity, psychomotor agitation. Insight and judgment are poor. DIAGNOSIS: This patient is schizoaffective, bipolar type. PLAN: The plan overall for this patient is to treat her with psychotropic medication regimen with Seroquel 200 mg nightly, Zyprexa 5 mg twice a day, Ativan 1 every 6 hours p.r.n. anxiety or agitation, and Depakote 500 mg q.12h. Twenty minutes of cognitive behavioral therapy to help her identify automatic negative thoughts and help her convert negative thoughts to more positive thoughts to reduce depression, anxiety, and mood lability. Chart was reviewed. Discussed with staff. Seen and assessed at bedside. Pamela Maldonado M.D. DR: JUDITH JOB#: [id number] CC:
[2020-04-07 20:00] VITALS: BP 93/50
--- NOTE | 2020-04-07 20:39 | Infectious Diseases Prog Note ---
Assessment/Plan Assessment/Plan Assessment: Sepsis UTI -u/a wbc tnct, nit +, leuk +3; ucx p Low grade fever- r/o COVID19 (resident from [place] with large outbreak) Leukocytosis - 04/06 CXR: Questionable developing bilateral hazy infiltrates, versus artifact of low lung volumes. Correlate with clinical findings -04/05 CXR; no acute process -Bx p ANemia CKD GERD seizure disorder Dementia SNF resident (Tanya beatriz) Plan: Levaquin #1 -04/06 SP Zosyn x1 -04/06 SP Ceftriaxone #2 -04/05 SP IV Vancomycin x1, Cefepime x1 -f/u cx -Monitor CBC/CMP, temperatures -first SARS CoV PCR neg, obtain second test -Cdiff if diarrhea Thank you for consulting [facility]. Will continue to follow along with you, Discussed with RN. Subjective Allergies: Coded Allergies: No Known Allergies (Unverified , 10/09/18) Subjective Afebrile. on RA. doing well per RN Objective Vital Signs Last 24 Hour Vital Signs Date Time Temp Pulse Resp B/P (MAP) Pulse Ox O2 Delivery O2 Flow Rate FiO2 04/07/20 20:00 98.2 60 18 93/50 (64) 96 04/07/20 16:00 99.0 80 20 99/56 (70) 93 04/07/20 12:00 97.3 64 17 107/55 (72) 93 04/07/20 09:00 Room Air 04/07/20 08:00 98.6 68 19 127/67 (87) 95 04/07/20 04:00 98.6 61 20 102/57 (72) 93 04/07/20 00:00 98.4 69 18 110/53 (72) 95 04/06/20 21:00 Room Air Height (Feet): 5 Height (Inches): 5.00 Weight (Pounds): 150 Objective Pt was not seen to limit COVID exposure and conserve PPE Microbiology Date/Time Source Procedure Growth Status 04/05/20 14:45 Blood Blood Culture - Preliminary NO GROWTH AFTER 24 HOURS Resulted 04/05/20 14:30 Blood Blood Culture - Preliminary NO GROWTH AFTER 24 HOURS Resulted 04/05/20 14:45 Nasopharynx Coronavirus COVID-19 PCR ([facility]) - Final Complete 04/05/20 14:45 Urine,Clean Catch Urine Culture - Preliminary Gram Negative Henri Resulted Laboratory Tests Test 04/07/20 06:00 White Blood Count 19.1 K/UL (4.8-10.8) H Red Blood Count 2.60 M/UL (4.20-5.40) L Hemoglobin 8.1 G/DL (12.0-16.0) L Hematocrit 24.1 % (37.0-47.0) L Mean Corpuscular Volume 93 FL (80-99) Mean Corpuscular Hemoglobin 31.1 PG (27.0-31.0) H Mean Corpuscular Hemoglobin Concent 33.5 G/DL (32.0-36.0) Red Cell Distribution Width 15.9 % (11.6-14.8) H Platelet Count 288 K/UL (150-450) Mean Platelet Volume 4.5 FL (6.5-10.1) L Neutrophils (%) (Auto) % (45.0-75.0) Lymphocytes (%) (Auto) % (20.0-45.0) Monocytes (%) (Auto) % (1.0-10.0) Eosinophils (%) (Auto) % (0.0-3.0) Basophils (%) (Auto) % (0.0-2.0) Differential Total Cells Counted 100 Neutrophils % (Manual) 70 % (45-75) Lymphocytes % (Manual) 13 % (20-45) L Monocytes % (Manual) 10 % (1-10) Eosinophils % (Manual) 0 % (0-3) Basophils % (Manual) 1 % (0-2) Band Neutrophils 6 % (0-8) Platelet Estimate Adequate Platelet Morphology Normal Hypochromasia 2+ Anisocytosis 1+ Spherocytes 1+ Sodium Level 146 MMOL/L (136-145) H Potassium Level 3.7 MMOL/L (3.5-5.1) Chloride Level 114 MMOL/L (98-107) H Carbon Dioxide Level 16 MMOL/L (21-32) L Anion Gap 16 mmol/L (5-15) H Blood Urea Nitrogen 64 mg/dL (7-18) H Creatinine 3.1 MG/DL (0.55-1.30) H Estimat Glomerular Filtration Rate 15.8 mL/min (>60) Glucose Level 89 MG/DL (74-106) Uric Acid 9.9 MG/DL (2.6-7.2) H Calcium Level 10.7 MG/DL (8.5-10.1) H Phosphorus Level 3.7 MG/DL (2.5-4.9) Magnesium Level 2.6 MG/DL (1.8-2.4) H Total Bilirubin 0.1 MG/DL (0.2-1.0) L Aspartate Amino Transf (AST/SGOT) 20 U/L (15-37) Alanine Aminotransferase (ALT/SGPT) 8 U/L (12-78) L Alkaline Phosphatase 80 U/L (46-116) Total Protein 7.2 G/DL (6.4-8.2) Albumin 1.6 G/DL (3.4-5.0) L Globulin 5.6 g/dL Albumin/Globulin Ratio 0.3 (1.0-2.7) L Current Medications Medications (Trade) Dose Ordered Sig/Alix Route PRN Reason Start Time Stop Time Status Last Admin Dose Admin Acetaminophen (Tylenol) 650 mg Q4H PRN ORAL Mild Pain (Pain Scale 1-3) 04/05/20 15:30 05/05/20 15:29 04/06/20 08:56 Bisacodyl (Dulcolax) 10 mg DAILYPRN PRN RECTAL Constipation 04/05/20 16:30 07/04/20 16:29 Citalopram Hydrobromide (CeleXA) 20 mg DAILY ORAL 04/07/20 09:00 05/07/20 08:59 04/07/20 08:13 Dextrose 1,000 ml @ 150 mls/hr Q6H40M IV 04/07/20 12:45 05/07/20 12:44 04/07/20 17:24 Dextrose (Dextrose 50%) 25 ml Q30M PRN IV Hypoglycemia 04/05/20 15:30 07/04/20 15:29 Dextrose (Dextrose 50%) 50 ml Q30M PRN IV Hypoglycemia 04/05/20 15:30 07/04/20 15:29 Diphenhydramine HCl (Benadryl) 25 mg Q6H PRN ORAL Itching/Pruritis 04/05/20 15:30 05/05/20 15:29 Divalproex Sodium (Depakote ER) 500 mg EVERY 12 HOURS ORAL 04/06/20 21:00 05/06/20 20:59 04/07/20 08:13 Docusate Sodium (Colace) 100 mg TID ORAL 04/06/20 13:00 05/05/20 20:59 04/07/20 17:24 Heparin Sodium (Porcine) (Heparin 5000 units/ml) 5,000 units EVERY 12 HOURS SUBQ 04/05/20 21:00 05/20/20 20:59 04/07/20 08:14 Levofloxacin (Levaquin) 500 mg QOD ORAL 04/09/20 09:00 04/16/20 08:59 Levothyroxine Sodium (Synthroid) 75 mcg DAILY@0630 ORAL 04/08/20 06:30 05/07/20 06:29 Lorazepam (Ativan) 1 mg Q6H PRN ORAL For Anxiety 04/06/20 14:30 04/13/20 14:29 Morphine Sulfate (Morphine Sulfate) 1 mg Q6H PRN IVP For Pain 04/05/20 15:30 04/12/20 15:29 Nitroglycerin (Ntg) 0.4 mg Q5M X 3 DOSES PRN SL Prn Chest Pain 04/05/20 15:30 05/05/20 15:29 Olanzapine (ZyPREXA) 5 mg BID ORAL 04/06/20 18:00 05/21/20 17:59 04/07/20 17:24 Ondansetron HCl (Zofran) 4 mg Q6H PRN IVP Nausea & Vomiting 04/05/20 15:30 05/05/20 15:29 Pantoprazole (Protonix) 40 mg Q12HR ORAL 04/06/20 21:00 05/06/20 08:59 04/07/20 08:13 Quetiapine Fumarate (SEROqueL) 200 mg QHS ORAL 04/06/20 21:00 05/21/20 20:59 04/06/20 21:19 Zolpidem Tartrate (Ambien) 5 mg HSPRN PRN ORAL Insomnia 04/05/20 15:30 04/12/20 15:29 Chepe Brooks MD April 07, 2020 20:39
[2020-04-07] MEDS: QUEtiapine 200mg tab ORAL SCH (20:50)
--- NOTE | 2020-04-07 21:30 | Consultation ---
DATE OF CONSULTATION: 04/07/2020 ENDOCRINOLOGY CONSULTATION CONSULTING PHYSICIAN: Thanh Love MD. REFERRING PHYSICIAN: Soto Hurtado D.O. REASON FOR CONSULTATION: Abnormal thyroid labs. HISTORY OF PRESENT ILLNESS: The patient is a 54-year-old female with history of schizophrenia who resides in [facility], presented to the hospital with symptomatic anemia, fever, suspected COVID-19 infection. The patient was admitted to the floor for observation and treatment on O2 mask and was very sleepy. PAST MEDICAL HISTORY: 1. DJD. 2. Diabetes. 3. COPD. 4. Seizure. 5. Schizophrenia. 6. Hypothyroidism. 7. Anemia. 8. Blindness. PAST SURGICAL HISTORY: Unknown. MEDICATIONS: Reviewed and reconciled. ALLERGIES TO MEDICATIONS: None. REVIEW OF SYSTEMS: Unobtainable due to the patient's condition. LABORATORY DATA: WBC 19, hemoglobin 8, hematocrit 21, platelets of 283. Sodium 146, potassium 3.7, chloride 112, bicarb 16, BUN 61, creatinine 3.1, uric acid 9.4, calcium 11.2. A1c of 5.7. TSH 0.91 and free T4 of 0.48. PTH is 56. Calcium decreased. Repeat calcium is 10.7. Phosphorus 3.7. PHYSICAL EXAMINATION: VITAL SIGNS: BP 107/55, pulse 64, temperature 97.2, and respiratory rate 17. HEENT: Pupils are equal and reactive to light. Sclerae are anicteric. NECK: No JVD. HEART: Regular. LUNGS: Clear. ABDOMEN: Positive bowel sounds. EXTREMITIES: Lower extremities positive for edema. DIAGNOSIS: 1. Iatrogenic hyperthyroidism. 2. Underlying primary hypothyroidism. 3. Rule out COVID. 4. Leukocytosis. PLAN: 1. Reduce the levothyroxine from 100 to 75 mcg daily. Repeat TFTs in 2 to 3 weeks. 2. We will follow the glucose. 3. Hemoglobin A1c. 4. Borderline diabetic. 5. No need for scheduled insulin or oral diabetic medications. I will follow her during the hospital stay. Thank you, Dr. Hurtado, for the courtesy of this consultation. Thanh Love M.D. DR: ADELA/ JOB#: [id number] CC: MARLYN
[2020-04-08] VITALS: BP 102/62
[2020-04-08 04:00] VITALS: BP 95/44
[2020-04-08 08:00] VITALS: BP 96/60
[2020-04-08] MEDS: Depakote ER 500mg tab ORAL SCH ×2 (08:05→21:28)
[2020-04-08] MEDS: Docusate 100mg cap ORAL SCH ×3 (08:05→17:03)
[2020-04-08] MEDS: Citalopram Hydrobromide 10mg Tab ORAL SCH (08:05)
[2020-04-08] MEDS: Heparin 5000 units/ml inj SUBQ SCH ×2 (08:07→21:29)
--- NOTE | 2020-04-08 08:37 | General Progress Note ---
Assessment/Plan Problem List: (1) Iatrogenic hyperthyroidism (2) Hypothyroid (3) UTI (urinary tract infection) (4) Symptomatic anemia Status: stable, unchanged Assessment/Plan: continue Levothyroxine 75 mcg daily repeat thyroid function in 3-4 weeks Subjective Allergies: Coded Allergies: No Known Allergies (Unverified , 10/09/18) All Systems: reviewed and negative except above Subjective events noted Objective Last 24 Hour Vital Signs Date Time Temp Pulse Resp B/P (MAP) Pulse Ox O2 Delivery O2 Flow Rate FiO2 04/08/20 04:00 97.2 59 16 95/44 (61) 95 04/08/20 00:00 97.7 56 18 102/62 (75) 93 04/07/20 21:00 Room Air 04/07/20 20:00 98.2 60 18 93/50 (64) 96 04/07/20 16:00 99.0 80 20 99/56 (70) 93 04/07/20 12:00 97.3 64 17 107/55 (72) 93 04/07/20 09:00 Room Air Intake and Output 04/07/20 04/08/20 19:00 07:00 Intake Total 960 ml 960 ml Balance 960 ml 960 ml Intake Oral 360 ml IV Total 600 ml 600 ml Other 360 ml # Voids 2 2 Height (Feet): 5 Height (Inches): 5.00 Weight (Pounds): 150 General Appearance: no apparent distress Neck: normal alignment Cardiovascular: normal rate Respiratory/Chest: lungs clear Abdomen: normal bowel sounds Objective Current Medications Medications (Trade) Dose Ordered Sig/Alix Route PRN Reason Start Time Stop Time Status Last Admin Dose Admin Acetaminophen (Tylenol) 650 mg Q4H PRN ORAL Mild Pain (Pain Scale 1-3) 04/05/20 15:30 05/05/20 15:29 04/06/20 08:56 Bisacodyl (Dulcolax) 10 mg DAILYPRN PRN RECTAL Constipation 04/05/20 16:30 07/04/20 16:29 Citalopram Hydrobromide (CeleXA) 20 mg DAILY ORAL 04/07/20 09:00 05/07/20 08:59 04/08/20 08:05 Dextrose 1,000 ml @ 150 mls/hr Q6H40M IV 04/07/20 12:45 05/07/20 12:44 04/08/20 08:11 Dextrose (Dextrose 50%) 25 ml Q30M PRN IV Hypoglycemia 04/05/20 15:30 07/04/20 15:29 Dextrose (Dextrose 50%) 50 ml Q30M PRN IV Hypoglycemia 04/05/20 15:30 07/04/20 15:29 Diphenhydramine HCl (Benadryl) 25 mg Q6H PRN ORAL Itching/Pruritis 04/05/20 15:30 05/05/20 15:29 Divalproex Sodium (Depakote ER) 500 mg EVERY 12 HOURS ORAL 04/06/20 21:00 05/06/20 20:59 04/08/20 08:05 Docusate Sodium (Colace) 100 mg TID ORAL 04/06/20 13:00 05/05/20 20:59 04/08/20 08:05 Heparin Sodium (Porcine) (Heparin 5000 units/ml) 5,000 units EVERY 12 HOURS SUBQ 04/05/20 21:00 05/20/20 20:59 04/08/20 08:07 Levofloxacin (Levaquin) 500 mg QOD ORAL 04/09/20 09:00 04/16/20 08:59 Levothyroxine Sodium (Synthroid) 75 mcg DAILY@0630 ORAL 04/08/20 06:30 05/07/20 06:29 04/08/20 06:12 Lorazepam (Ativan) 1 mg Q6H PRN ORAL For Anxiety 04/06/20 14:30 04/13/20 14:29 Morphine Sulfate (Morphine Sulfate) 1 mg Q6H PRN IVP For Pain 04/05/20 15:30 04/12/20 15:29 Nitroglycerin (Ntg) 0.4 mg Q5M X 3 DOSES PRN SL Prn Chest Pain 04/05/20 15:30 05/05/20 15:29 Olanzapine (ZyPREXA) 5 mg BID ORAL 04/06/20 18:00 05/21/20 17:59 04/08/20 08:05 Ondansetron HCl (Zofran) 4 mg Q6H PRN IVP Nausea & Vomiting 04/05/20 15:30 05/05/20 15:29 Pantoprazole (Protonix) 40 mg Q12HR ORAL 04/06/20 21:00 05/06/20 08:59 04/08/20 08:06 Quetiapine Fumarate (SEROqueL) 200 mg QHS ORAL 04/06/20 21:00 05/21/20 20:59 04/07/20 20:50 Zolpidem Tartrate (Ambien) 5 mg HSPRN PRN ORAL Insomnia 04/05/20 15:30 04/12/20 15:29 Thanh Love MD April 08, 2020 08:37
[2020-04-08 09:26] LABS: HEMATOCRIT 24.8 % (37.0-47.0); HEMOGLOBIN 8.1 G/DL (12.0-16.0); MEAN CORPUSCULAR VOLUME 93 FL (80-99); PLATELET COUNT 306 K/UL (150-450); RED BLOOD COUNT 2.67 M/UL (4.20-5.40); WHITE BLOOD COUNT 19.5 K/UL (4.8-10.8)
--- NOTE | 2020-04-08 09:30 | Pulmonology Progress Note ---
Subjective ROS Limited/Unobtainable: No Interval Events: None new Constitutional: Reports: no symptoms HEENT: Repors: no symptoms Respiratory: Reports: no symptoms Cardiovascular: Reports: no symptoms Gastrointestinal/Abdominal: Reports: no symptoms Allergies: Coded Allergies: No Known Allergies (Unverified , 10/09/18) All Systems: reviewed and negative except above Objective Last 24 Hour Vital Signs Date Time Temp Pulse Resp B/P (MAP) Pulse Ox O2 Delivery O2 Flow Rate FiO2 04/08/20 08:00 97.7 52 18 96/60 (72) 98 04/08/20 04:00 97.2 59 16 95/44 (61) 95 04/08/20 00:00 97.7 56 18 102/62 (75) 93 04/07/20 21:00 Room Air 04/07/20 20:00 98.2 60 18 93/50 (64) 96 04/07/20 16:00 99.0 80 20 99/56 (70) 93 04/07/20 12:00 97.3 64 17 107/55 (72) 93 Intake and Output 04/07/20 04/08/20 19:00 07:00 Intake Total 960 ml 960 ml Balance 960 ml 960 ml Intake Oral 360 ml IV Total 600 ml 600 ml Other 360 ml # Voids 2 2 General Appearance: no acute distress HEENT: normocephalic Respiratory/Chest: chest wall non-tender, lungs clear Cardiovascular: normal peripheral pulses, normal rate Abdomen: normal bowel sounds Microbiology Date/Time Source Procedure Growth Status 04/05/20 14:45 Blood Blood Culture - Preliminary NO GROWTH AFTER 48 HOURS Resulted 04/05/20 14:30 Blood Blood Culture - Preliminary NO GROWTH AFTER 48 HOURS Resulted 04/05/20 14:45 Nasopharynx Coronavirus COVID-19 PCR ([facility]) - Final Complete 04/05/20 14:45 Urine,Clean Catch Urine Culture - Final Escherichia Coli Complete Laboratory Tests 04/08/20 07:00: White Blood Count [Pending], Red Blood Count [Pending], Hemoglobin [Pending], Hematocrit [Pending], Mean Corpuscular Volume [Pending], Mean Corpuscular Hemoglobin [Pending], Mean Corpuscular Hemoglobin Concent [Pending], Red Cell Distribution Width [Pending], Platelet Count [Pending], Mean Platelet Volume [ Pending], Neutrophils (%) (Auto) [Pending], Lymphocytes (%) (Auto) [Pending], Monocytes (%) (Auto) [Pending], Eosinophils (%) (Auto) [Pending], Basophils (%) (Auto) [Pending], Sodium Level [Pending], Potassium Level [Pending], Chloride Level [Pending], Carbon Dioxide Level [Pending], Blood Urea Nitrogen [Pending], Creatinine [Pending], Estimat Glomerular Filtration Rate [Pending], Glucose Level [Pending], Uric Acid [Pending], Calcium Level [Pending], Phosphorus Level [Pending], Magnesium Level [Pending], Total Bilirubin [Pending], Aspartate Amino Transf (AST/SGOT) [Pending], Alanine Aminotransferase (ALT/SGPT) [Pending] , Alkaline Phosphatase [Pending], Total Protein [Pending], Albumin [Pending], Globulin [Pending] Current Medications Medications (Trade) Dose Ordered Sig/Alix Route PRN Reason Start Time Stop Time Status Last Admin Dose Admin Acetaminophen (Tylenol) 650 mg Q4H PRN ORAL Mild Pain (Pain Scale 1-3) 04/05/20 15:30 05/05/20 15:29 04/06/20 08:56 Bisacodyl (Dulcolax) 10 mg DAILYPRN PRN RECTAL Constipation 04/05/20 16:30 07/04/20 16:29 Citalopram Hydrobromide (CeleXA) 20 mg DAILY ORAL 04/07/20 09:00 05/07/20 08:59 04/08/20 08:05 Dextrose 1,000 ml @ 150 mls/hr Q6H40M IV 04/07/20 12:45 05/07/20 12:44 04/08/20 08:11 Dextrose (Dextrose 50%) 25 ml Q30M PRN IV Hypoglycemia 04/05/20 15:30 07/04/20 15:29 Dextrose (Dextrose 50%) 50 ml Q30M PRN IV Hypoglycemia 04/05/20 15:30 07/04/20 15:29 Diphenhydramine HCl (Benadryl) 25 mg Q6H PRN ORAL Itching/Pruritis 04/05/20 15:30 05/05/20 15:29 Divalproex Sodium (Depakote ER) 500 mg EVERY 12 HOURS ORAL 04/06/20 21:00 05/06/20 20:59 04/08/20 08:05 Docusate Sodium (Colace) 100 mg TID ORAL 04/06/20 13:00 05/05/20 20:59 04/08/20 08:05 Heparin Sodium (Porcine) (Heparin 5000 units/ml) 5,000 units EVERY 12 HOURS SUBQ 04/05/20 21:00 05/20/20 20:59 04/08/20 08:07 Levofloxacin (Levaquin) 500 mg QOD ORAL 04/09/20 09:00 04/16/20 08:59 Levothyroxine Sodium (Synthroid) 75 mcg DAILY@0630 ORAL 04/08/20 06:30 05/07/20 06:29 04/08/20 06:12 Lorazepam (Ativan) 1 mg Q6H PRN ORAL For Anxiety 04/06/20 14:30 04/13/20 14:29 Morphine Sulfate (Morphine Sulfate) 1 mg Q6H PRN IVP For Pain 04/05/20 15:30 04/12/20 15:29 Nitroglycerin (Ntg) 0.4 mg Q5M X 3 DOSES PRN SL Prn Chest Pain 04/05/20 15:30 05/05/20 15:29 Olanzapine (ZyPREXA) 5 mg BID ORAL 04/06/20 18:00 05/21/20 17:59 04/08/20 08:05 Ondansetron HCl (Zofran) 4 mg Q6H PRN IVP Nausea & Vomiting 04/05/20 15:30 05/05/20 15:29 Pantoprazole (Protonix) 40 mg Q12HR ORAL 04/06/20 21:00 05/06/20 08:59 04/08/20 08:06 Quetiapine Fumarate (SEROqueL) 200 mg QHS ORAL 04/06/20 21:00 05/21/20 20:59 04/07/20 20:50 Zolpidem Tartrate (Ambien) 5 mg HSPRN PRN ORAL Insomnia 04/05/20 15:30 04/12/20 15:29 Assessment/Plan Assessment/Plan IMPRESSION: 1. Leukocytosis. 2. Anemia. 3. CKD. 4. Seizure disorder. 5. COPD. 6. [facility] resident. DISCUSSION: Seen by ID; continue empiric antibiotics. Changes reviewed per ID Continue medications. I will follow. Respiratory status is stable Jerel Walker M.D. Jerel Walker MD April 08, 2020 09:30
--- NOTE | 2020-04-08 09:50 | Nephrology Progress Note ---
Assessment/Plan Problem List: (1) Renal failure (ARF), acute on chronic (2) UTI (urinary tract infection) (3) Blind (4) Suspected COVID-19 virus infection (5) Dehydration (6) Symptomatic anemia (7) Seizure Assessment Renal failure most likely acute Underlying chronic kidney disease History of diabetes mellitus, but hemoglobin A1c is 5.7 Severe anemia Hypercalcemia Leukocytosis, UTI Seizure disorder Patient blind Has history of psych disease [facility] resident Plan Today's can panel pending First COVID 19 test negative Kidney ultrasound ordered Discussed with RN Patient needs IV hydration, D5W 150 cc an hour ordered RN reports that the patient refuses IV fluid and also refuses medication at times Continue antibiotics Monitor renal parameters Urine studies, if urine specimen can be obtained Subjective ROS Limited/Unobtainable: No Constitutional: Reports: malaise Objective Objective Last 24 Hour Vital Signs Date Time Temp Pulse Resp B/P (MAP) Pulse Ox O2 Delivery O2 Flow Rate FiO2 04/08/20 08:00 97.7 52 18 96/60 (72) 98 04/08/20 04:00 97.2 59 16 95/44 (61) 95 04/08/20 00:00 97.7 56 18 102/62 (75) 93 04/07/20 21:00 Room Air 04/07/20 20:00 98.2 60 18 93/50 (64) 96 04/07/20 16:00 99.0 80 20 99/56 (70) 93 04/07/20 12:00 97.3 64 17 107/55 (72) 93 Intake and Output 04/07/20 04/08/20 19:00 07:00 Intake Total 960 ml 960 ml Balance 960 ml 960 ml Intake Oral 360 ml IV Total 600 ml 600 ml Other 360 ml # Voids 2 2 Laboratory Tests 04/08/20 07:00: White Blood Count 19.5H, Red Blood Count 2.67L, Hemoglobin 8.1L, Hematocrit 24.8L, Mean Corpuscular Volume 93, Mean Corpuscular Hemoglobin 30.4, Mean Corpuscular Hemoglobin Concent 32.7, Red Cell Distribution Width 16.0H, Platelet Count 306, Mean Platelet Volume 4.6L, Neutrophils (%) (Auto) , Lymphocytes (%) (Auto) , Monocytes (%) (Auto) , Eosinophils (%) (Auto) , Basophils (%) (Auto) , Neutrophils % (Manual) [Pending], Lymphocytes % (Manual) [Pending], Platelet Estimate [Pending], Platelet Morphology [Pending], Sodium Level [Pending], Potassium Level [Pending], Chloride Level [Pending], Carbon Dioxide Level [Pending], Blood Urea Nitrogen [Pending], Creatinine [Pending], Estimat Glomerular Filtration Rate [Pending], Glucose Level [Pending], Uric Acid [Pending], Calcium Level [Pending], Phosphorus Level [Pending], Magnesium Level [Pending], Total Bilirubin [Pending], Aspartate Amino Transf (AST/SGOT) [ Pending], Alanine Aminotransferase (ALT/SGPT) [Pending], Alkaline Phosphatase [ Pending], Total Protein [Pending], Albumin [Pending], Globulin [Pending] Height (Feet): 5 Height (Inches): 5.00 Weight (Pounds): 150 General Appearance: no apparent distress Cardiovascular: other - Rate variable Abdomen: soft Objective No change Sohan Lane MD April 08, 2020 09:50
[2020-04-08 09:57] LABS: ALANINE AMINOTRANSFERASE 10 U/L (12-78); ALBUMIN 1.7 G/DL (3.4-5.0); ALBUMIN/GLOBULIN RATIO 0.3 (1.0-2.7); ALKALINE PHOSPHATASE 77 U/L (46-116); ANION GAP 14 mmol/L (5-15); ASPARTATE AMINO TRANSFERASE 25 U/L (15-37); BILIRUBIN,TOTAL 0.2 MG/DL (0.2-1.0); BLOOD UREA NITROGEN 65 mg/dL (7-18); CALCIUM 11.2 MG/DL (8.5-10.1); CARBON DIOXIDE 18 MMOL/L (21-32); CHLORIDE 112 MMOL/L (98-107); SODIUM 144 MMOL/L (136-145)
[2020-04-08 10:10] LABS: PHOSPHORUS 4.3 MG/DL (2.5-4.9)
--- NOTE | 2020-04-08 10:22 | General Progress Note ---
Assessment/Plan Problem List: (1) CKD (chronic kidney disease) ICD Codes: N18.9 - Chronic kidney disease, unspecified SNOMED: 840330148 (2) Diabetes ICD Codes: E11.9 - Type 2 diabetes mellitus without complications SNOMED: 73406027 (3) COPD (chronic obstructive pulmonary disease) ICD Codes: J44.9 - Chronic obstructive pulmonary disease, unspecified SNOMED: 42137398 (4) Seizure ICD Codes: R56.9 - Unspecified convulsions SNOMED: 10204299 (5) GERD (gastroesophageal reflux disease) ICD Codes: K21.9 - Gastro-esophageal reflux disease without esophagitis SNOMED: 000300536 (6) Blind ICD Codes: H54.7 - Unspecified visual loss SNOMED: 297536704 (7) Behavioral change ICD Codes: R46.89 - Other symptoms and signs involving appearance and behavior SNOMED: 697063862 (8) UTI (urinary tract infection) ICD Codes: N39.0 - Urinary tract infection, site not specified SNOMED: 35924730 Qualifiers: Qualified Codes: N30.01 - Acute cystitis with hematuria (9) Fever ICD Codes: R50.9 - Fever, unspecified SNOMED: 648845060 Qualifiers: Qualified Codes: R50.9 - Fever, unspecified (10) Symptomatic anemia ICD Codes: D64.9 - Anemia, unspecified SNOMED: 156844572 (11) Suspected COVID-19 virus infection ICD Codes: Z20.828 - Contact with and (suspected) exposure to other viral communicable diseases SNOMED: 508407527 Status: stable, unchanged Assessment/Plan: pt diet abx cbc bmp am Subjective Constitutional: Reports: weakness Allergies: Coded Allergies: No Known Allergies (Unverified , 10/09/18) All Systems: reviewed and negative except above Subjective sleepy calm Objective Last 24 Hour Vital Signs Date Time Temp Pulse Resp B/P (MAP) Pulse Ox O2 Delivery O2 Flow Rate FiO2 04/08/20 08:00 97.7 52 18 96/60 (72) 98 04/08/20 04:00 97.2 59 16 95/44 (61) 95 04/08/20 00:00 97.7 56 18 102/62 (75) 93 04/07/20 21:00 Room Air 04/07/20 20:00 98.2 60 18 93/50 (64) 96 04/07/20 16:00 99.0 80 20 99/56 (70) 93 04/07/20 12:00 97.3 64 17 107/55 (72) 93 Intake and Output 04/07/20 04/08/20 19:00 07:00 Intake Total 960 ml 960 ml Balance 960 ml 960 ml Intake Oral 360 ml IV Total 600 ml 600 ml Other 360 ml # Voids 2 2 Laboratory Tests 04/08/20 07:00: White Blood Count 19.5H, Red Blood Count 2.67L, Hemoglobin 8.1L, Hematocrit 24.8L, Mean Corpuscular Volume 93, Mean Corpuscular Hemoglobin 30.4, Mean Corpuscular Hemoglobin Concent 32.7, Red Cell Distribution Width 16.0H, Platelet Count 306, Mean Platelet Volume 4.6L, Neutrophils (%) (Auto) , Lymphocytes (%) (Auto) , Monocytes (%) (Auto) , Eosinophils (%) (Auto) , Basophils (%) (Auto) , Neutrophils % (Manual) [Pending], Lymphocytes % (Manual) [Pending], Platelet Estimate [Pending], Platelet Morphology [Pending], Sodium Level 144, Potassium Level 4.0, Chloride Level 112H, Carbon Dioxide Level 18L, Anion Gap 14, Blood Urea Nitrogen 65H, Creatinine 3.0H, Estimat Glomerular Filtration Rate 16.4, Glucose Level 75, Uric Acid 10.3H, Calcium Level 11.2H, Phosphorus Level 4.3, Magnesium Level 2.5H, Total Bilirubin 0.2, Aspartate Amino Transf (AST/SGOT) 25, Alanine Aminotransferase (ALT/SGPT) 10L, Alkaline Phosphatase 77, Total Protein 7.4, Albumin 1.7L, Globulin 5.7, Albumin/Globulin Ratio 0.3L Height (Feet): 5 Height (Inches): 5.00 Weight (Pounds): 150 General Appearance: lethargic EENT: normal ENT inspection Neck: normal alignment Cardiovascular: normal rate, regular rhythm Respiratory/Chest: no respiratory distress, no accessory muscle use Extremities: normal inspection Skin: normal pigmentation Soto Hurtado DO April 08, 2020 10:22
--- NOTE | 2020-04-08 10:44 | Progress Note ---
DATE: 04/08/2020 SUBJECTIVE: This is a 54-year-old female patient. She has anemia. She has altered mental status, confusion, decline in cognition below her baseline. That is why, her attending has requested daily psychiatric consultation. She also has blindness, confusion, disorganized thought process. She has altered mental status, urinary tract infection, fever, rule out COVID-19, altered mental status, and mood lability, worsened by stress of her medical illness. MENTAL STATUS EXAMINATION: This is a 54-year-old female. General appearance is disheveled. Attitude, irritable and agitated. Affect, guarded and restricted. Intellect poor. Mood, depressed and anxious. Motor activity, psychomotor agitation. Attention span is poor. Orientation x2. Speech is pressured. Thought process disorganized and illogical. Insight and judgment is poor. DIAGNOSIS: Schizoaffective, bipolar type. PLAN: Treat her with Seroquel 200 mg at bedtime, Zyprexa 5 twice a day, Ativan 1 every 6 hours p.r.n. anxiety and agitation, Depakote 500 mg q.12h. A 20 minutes of cognitive behavioral therapy to help her identify automatic negative thoughts and help her convert negative thoughts to more positive thoughts to reduce depression, anxiety, and mood lability. Chart reviewed. Discussed with staff. Seen and assessed in her room. Pamela Maldonado M.D. DR: JUDITH JOB#: [id number] CC:
[2020-04-08 12:05] VITALS: BP 96/61
--- NOTE | 2020-04-08 12:34 | Hematology/Onc Progress Note ---
Assessment/Plan Assessment/Plan Assessment and Recs # Anemia of chronic disease due to underlying chronic medical issues, multifactorial v Gi bleed --> Anemia workup has been ordered, rule out gi bleed --> No evidence of hemolysis is noted, peripheral smear has been reviewed. --> Hgb goal >7. Transfuse prn. --> Epogen or iron at this time is not particularly indicated --> Medications have been reviewed --> low threshold for gi evaluation in case has occult + --> bone marrow biopsy is not indicated given the other more likely causes -> hgb trend 8.2-->8.1 --> no hemolysis is noted # Leukocytosis r/o covid, pna --> on abx as per id --> on uti ctx rx->levo # UTI (urinary tract infection) --> on abx ---> as per id # Gerd --> on ppi # Dehydration --> per renal # Dvt ppx --> heparin sq The timing of this note does not necessarily reflect the time of the patient was seen. Greatly appreciate consultation. Subjective Constitutional: Denies: no symptoms, chills, fever, malaise, weakness, other HEENT: Denies: no symptoms, eye pain, blurred vision, tearing, double vision, ear pain, ear discharge, nose pain, nose congestion, throat pain, throat swelling, mouth pain, mouth swelling, other Cardiovascular: Denies: no symptoms, chest pain, edema, irregular heart rate, lightheadedness, palpitations, syncope, other Respiratory: Denies: no symptoms, cough, shortness of breath, SOB with excertion, SOB at rest, sputum, wheezing, other Gastrointestinal/Abdominal: Denies: no symptoms, abdomen distended, abdominal pain, black stools, tarry stools, blood in stool, constipated, diarrhea, difficulty swallowing, nausea, poor appetite, poor fluid intake, rectal bleeding , vomiting, other Endocrine: Denies: no symptoms, excessive sweating, flushing, intolerance to cold, intolerance to heat, increased hunger, increased thirst, increased urine, unexplained weight gain, unexplained weight loss, other Allergies: Coded Allergies: No Known Allergies (Unverified , 10/09/18) Subjective 5/10 no bleeding, hgb 10.1 wbc is higher, no bleeidng Objective Objective Current Medications Medications (Trade) Dose Ordered Sig/Alix Route PRN Reason Start Time Stop Time Status Last Admin Dose Admin Acetaminophen (Tylenol) 650 mg Q4H PRN ORAL Mild Pain (Pain Scale 1-3) 04/05/20 15:30 05/05/20 15:29 04/06/20 08:56 Bisacodyl (Dulcolax) 10 mg DAILYPRN PRN RECTAL Constipation 04/05/20 16:30 07/04/20 16:29 Citalopram Hydrobromide (CeleXA) 20 mg DAILY ORAL 04/07/20 09:00 05/07/20 08:59 04/08/20 08:05 Dextrose 1,000 ml @ 150 mls/hr Q6H40M IV 04/07/20 12:45 05/07/20 12:44 04/08/20 08:11 Dextrose (Dextrose 50%) 25 ml Q30M PRN IV Hypoglycemia 04/05/20 15:30 07/04/20 15:29 Dextrose (Dextrose 50%) 50 ml Q30M PRN IV Hypoglycemia 04/05/20 15:30 07/04/20 15:29 Diphenhydramine HCl (Benadryl) 25 mg Q6H PRN ORAL Itching/Pruritis 04/05/20 15:30 05/05/20 15:29 Divalproex Sodium (Depakote ER) 500 mg EVERY 12 HOURS ORAL 04/06/20 21:00 05/06/20 20:59 04/08/20 08:05 Docusate Sodium (Colace) 100 mg TID ORAL 04/06/20 13:00 05/05/20 20:59 04/08/20 08:05 Heparin Sodium (Porcine) (Heparin 5000 units/ml) 5,000 units EVERY 12 HOURS SUBQ 04/05/20 21:00 05/20/20 20:59 04/08/20 08:07 Levofloxacin (Levaquin) 500 mg QOD ORAL 04/09/20 09:00 04/16/20 08:59 Levothyroxine Sodium (Synthroid) 75 mcg DAILY@0630 ORAL 04/08/20 06:30 05/07/20 06:29 04/08/20 06:12 Lorazepam (Ativan) 1 mg Q6H PRN ORAL For Anxiety 04/06/20 14:30 04/13/20 14:29 Morphine Sulfate (Morphine Sulfate) 1 mg Q6H PRN IVP For Pain 04/05/20 15:30 04/12/20 15:29 Nitroglycerin (Ntg) 0.4 mg Q5M X 3 DOSES PRN SL Prn Chest Pain 04/05/20 15:30 05/05/20 15:29 Olanzapine (ZyPREXA) 5 mg BID ORAL 04/06/20 18:00 05/21/20 17:59 04/08/20 08:05 Ondansetron HCl (Zofran) 4 mg Q6H PRN IVP Nausea & Vomiting 04/05/20 15:30 05/05/20 15:29 Pantoprazole (Protonix) 40 mg Q12HR ORAL 04/06/20 21:00 05/06/20 08:59 04/08/20 08:06 Quetiapine Fumarate (SEROqueL) 200 mg QHS ORAL 04/06/20 21:00 05/21/20 20:59 04/07/20 20:50 Zolpidem Tartrate (Ambien) 5 mg HSPRN PRN ORAL Insomnia 04/05/20 15:30 04/12/20 15:29 Last 24 Hour Vital Signs Date Time Temp Pulse Resp B/P (MAP) Pulse Ox O2 Delivery O2 Flow Rate FiO2 04/08/20 12:05 98.6 56 18 96/61 (73) 97 04/08/20 10:50 Room Air 04/08/20 08:00 97.7 52 18 96/60 (72) 98 04/08/20 04:00 97.2 59 16 95/44 (61) 95 04/08/20 00:00 97.7 56 18 102/62 (75) 93 04/07/20 21:00 Room Air 04/07/20 20:00 98.2 60 18 93/50 (64) 96 04/07/20 16:00 99.0 80 20 99/56 (70) 93 04/07/20 12:00 97.3 64 17 107/55 (72) 93 04/07/20 09:00 Room Air 04/07/20 08:00 98.6 68 19 127/67 (87) 95 04/07/20 04:00 98.6 61 20 102/57 (72) 93 04/07/20 00:00 98.4 69 18 110/53 (72) 95 04/06/20 21:00 Room Air 04/06/20 20:00 98.4 82 18 100/64 (76) 96 04/06/20 16:00 98.6 72 18 101/59 (73) 97 04/06/20 14:45 97.8 71 16 109/64 (79) 96 04/06/20 13:45 97.5 75 18 111/67 (82) 96 04/06/20 12:45 97.9 69 17 105/66 (79) 96 Intake and Output 04/07/20 04/08/20 19:00 07:00 Intake Total 960 ml 1110 ml Balance 960 ml 1110 ml Intake Oral 360 ml IV Total 600 ml 750 ml Other 360 ml # Voids 2 2 Labs Test 04/05/20 14:45 04/06/20 04:09 04/06/20 04:49 04/06/20 10:49 White Blood Count 21.8 K/UL (4.8-10.8) 21.6 K/UL (4.8-10.8) Red Blood Count 2.70 M/UL (4.20-5.40) 2.65 M/UL (4.20-5.40) Hemoglobin 8.2 G/DL (12.0-16.0) 8.1 G/DL (12.0-16.0) Hematocrit 24.9 % (37.0-47.0) 24.3 % (37.0-47.0) Mean Corpuscular Volume 92 FL (80-99) 92 FL (80-99) Mean Corpuscular Hemoglobin 30.5 PG (27.0-31.0) 30.4 PG (27.0-31.0) Mean Corpuscular Hemoglobin Concent 33.1 G/DL (32.0-36.0) 33.1 G/DL (32.0-36.0) Red Cell Distribution Width 15.6 % (11.6-14.8) 15.4 % (11.6-14.8) Platelet Count 295 K/UL (150-450) 287 K/UL (150-450) Mean Platelet Volume 4.4 FL (6.5-10.1) 4.7 FL (6.5-10.1) Neutrophils (%) (Auto) % (45.0-75.0) % (45.0-75.0) Lymphocytes (%) (Auto) % (20.0-45.0) % (20.0-45.0) Monocytes (%) (Auto) % (1.0-10.0) % (1.0-10.0) Eosinophils (%) (Auto) % (0.0-3.0) % (0.0-3.0) Basophils (%) (Auto) % (0.0-2.0) % (0.0-2.0) Differential Total Cells Counted 100 100 Neutrophils % (Manual) 63 % (45-75) 62 % (45-75) Lymphocytes % (Manual) 27 % (20-45) 18 % (20-45) Monocytes % (Manual) 6 % (1-10) 12 % (1-10) Eosinophils % (Manual) 0 % (0-3) 0 % (0-3) Basophils % (Manual) 0 % (0-2) 0 % (0-2) Band Neutrophils 4 % (0-8) 8 % (0-8) Nucleated Red Blood Cells 1 /100 WBC Platelet Estimate Adequate Adequate Platelet Morphology Normal Normal Polychromasia 1+ Anisocytosis 1+ 1+ Urine Color Pale yellow Urine Appearance Cloudy Urine pH 6 (4.5-8.0) Urine Specific Tarrs 1.010 (1.005-1.035) Urine Protein 3+ (NEGATIVE) Urine Glucose (UA) Negative (NEGATIVE) Urine Ketones Negative (NEGATIVE) Urine Blood 5+ (NEGATIVE) Urine Nitrite Positive (NEGATIVE) Urine Bilirubin Negative (NEGATIVE) Urine Urobilinogen Normal MG/DL (0.0-1.0) Urine Leukocyte Esterase 3+ (NEGATIVE) Urine RBC 10-15 /HPF (0 - 2) Urine WBC Tntc /HPF (0 - 2) Urine Squamous Epithelial Cells Few /LPF (NONE/OCC) Urine Bacteria Many /HPF (NONE) Sodium Level 140 MMOL/L (136-145) 144 MMOL/L (136-145) Potassium Level 3.8 MMOL/L (3.5-5.1) 3.6 MMOL/L (3.5-5.1) Chloride Level 106 MMOL/L (98-107) 112 MMOL/L (98-107) Carbon Dioxide Level 16 MMOL/L (21-32) 16 MMOL/L (21-32) Anion Gap 18 mmol/L (5-15) 16 mmol/L (5-15) Blood Urea Nitrogen 63 mg/dL (7-18) 61 mg/dL (7-18) Creatinine 3.2 MG/DL (0.55-1.30) 3.1 MG/DL (0.55-1.30) Estimat Glomerular Filtration Rate 15.2 mL/min (>60) 15.8 mL/min (>60) Glucose Level 95 MG/DL (74-106) 85 MG/DL (74-106) Lactic Acid Level 0.70 mmol/L (0.4-2.0) Calcium Level 11.2 MG/DL (8.5-10.1) 11.2 MG/DL (8.5-10.1) Phosphorus Level 4.6 MG/DL (2.5-4.9) 4.6 MG/DL (2.5-4.9) Magnesium Level 2.7 MG/DL (1.8-2.4) Total Bilirubin 0.2 MG/DL (0.2-1.0) Aspartate Amino Transf (AST/SGOT) 21 U/L (15-37) Alanine Aminotransferase (ALT/SGPT) 11 U/L (12-78) Alkaline Phosphatase 82 U/L (46-116) Troponin I 0.000 ng/mL (0.000-0.056) Pro-B-Type Natriuretic Peptide 7568 pg/mL (0-125) Total Protein 7.6 G/DL (6.4-8.2) Albumin 2.0 G/DL (3.4-5.0) Globulin 5.6 g/dL Albumin/Globulin Ratio 0.4 (1.0-2.7) Lipase 274 U/L (73-393) Uric Acid 9.4 MG/DL (2.6-7.2) Ferritin 1001 NG/ML (8-388) Hypochromasia 2+ Spherocytes 1+ Hemoglobin A1c 5.7 % (4.3-6.0) Calcium (Send out) 10.5 mg/dL (8.7-10.2) Thyroid Stimulating Hormone (TSH) 0.091 uiU/mL (0.358-3.740) Free Thyroxine 0.48 NG/DL (0.76-1.46) PTH (Intact) Whole Molecule Comment (.) Parathyroid Hormone (Intact) 56 pg/mL (15-65) Iron Level 37 ug/dL (50-175) Total Iron Binding Capacity 179 ug/dL (250-450) Percent Iron Saturation 21 % (15-50) Unsaturated Iron Binding 142 ug/dL (112-346) Vitamin B12 Level 1351 PG/ML (193-986) Folate 7.9 NG/ML (8.6-58.9) Test 04/07/20 06:00 04/08/20 07:00 White Blood Count 19.1 K/UL (4.8-10.8) 19.5 K/UL (4.8-10.8) Red Blood Count 2.60 M/UL (4.20-5.40) 2.67 M/UL (4.20-5.40) Hemoglobin 8.1 G/DL (12.0-16.0) 8.1 G/DL (12.0-16.0) Hematocrit 24.1 % (37.0-47.0) 24.8 % (37.0-47.0) Mean Corpuscular Volume 93 FL (80-99) 93 FL (80-99) Mean Corpuscular Hemoglobin 31.1 PG (27.0-31.0) 30.4 PG (27.0-31.0) Mean Corpuscular Hemoglobin Concent 33.5 G/DL (32.0-36.0) 32.7 G/DL (32.0-36.0) Red Cell Distribution Width 15.9 % (11.6-14.8) 16.0 % (11.6-14.8) Platelet Count 288 K/UL (150-450) 306 K/UL (150-450) Mean Platelet Volume 4.5 FL (6.5-10.1) 4.6 FL (6.5-10.1) Neutrophils (%) (Auto) % (45.0-75.0) % (45.0-75.0) Lymphocytes (%) (Auto) % (20.0-45.0) % (20.0-45.0) Monocytes (%) (Auto) % (1.0-10.0) % (1.0-10.0) Eosinophils (%) (Auto) % (0.0-3.0) % (0.0-3.0) Basophils (%) (Auto) % (0.0-2.0) % (0.0-2.0) Differential Total Cells Counted 100 100 Neutrophils % (Manual) 70 % (45-75) 59 % (45-75) Lymphocytes % (Manual) 13 % (20-45) 30 % (20-45) Monocytes % (Manual) 10 % (1-10) 6 % (1-10) Eosinophils % (Manual) 0 % (0-3) 1 % (0-3) Basophils % (Manual) 1 % (0-2) 0 % (0-2) Band Neutrophils 6 % (0-8) 2 % (0-8) Platelet Estimate Adequate Adequate Platelet Morphology Normal Normal Hypochromasia 2+ 1+ Anisocytosis 1+ 1+ Spherocytes 1+ Sodium Level 146 MMOL/L (136-145) 144 MMOL/L (136-145) Potassium Level 3.7 MMOL/L (3.5-5.1) 4.0 MMOL/L (3.5-5.1) Chloride Level 114 MMOL/L (98-107) 112 MMOL/L (98-107) Carbon Dioxide Level 16 MMOL/L (21-32) 18 MMOL/L (21-32) Anion Gap 16 mmol/L (5-15) 14 mmol/L (5-15) Blood Urea Nitrogen 64 mg/dL (7-18) 65 mg/dL (7-18) Creatinine 3.1 MG/DL (0.55-1.30) 3.0 MG/DL (0.55-1.30) Estimat Glomerular Filtration Rate 15.8 mL/min (>60) 16.4 mL/min (>60) Glucose Level 89 MG/DL (74-106) 75 MG/DL (74-106) Uric Acid 9.9 MG/DL (2.6-7.2) 10.3 MG/DL (2.6-7.2) Calcium Level 10.7 MG/DL (8.5-10.1) 11.2 MG/DL (8.5-10.1) Phosphorus Level 3.7 MG/DL (2.5-4.9) 4.3 MG/DL (2.5-4.9) Magnesium Level 2.6 MG/DL (1.8-2.4) 2.5 MG/DL (1.8-2.4) Total Bilirubin 0.1 MG/DL (0.2-1.0) 0.2 MG/DL (0.2-1.0) Aspartate Amino Transf (AST/SGOT) 20 U/L (15-37) 25 U/L (15-37) Alanine Aminotransferase (ALT/SGPT) 8 U/L (12-78) 10 U/L (12-78) Alkaline Phosphatase 80 U/L (46-116) 77 U/L (46-116) Total Protein 7.2 G/DL (6.4-8.2) 7.4 G/DL (6.4-8.2) Albumin 1.6 G/DL (3.4-5.0) 1.7 G/DL (3.4-5.0) Globulin 5.6 g/dL 5.7 g/dL Albumin/Globulin Ratio 0.3 (1.0-2.7) 0.3 (1.0-2.7) Myelocytes % 2 % (0-0) Reactive Lymphocytes Occasional Polychromasia 1+ Height (Feet): 5 Height (Inches): 5.00 Weight (Pounds): 150 Objective Vitals: reviewed General: NAD HEENT: nc, at Neck: supple Chest: clear breath sounds bilaterally Cardiovascular: RRR, no s3, s4 Abdomen: soft, nontender, nd Extremities: no cce, normal range of motion Neuro: alert and oriented David Ivey MD April 08, 2020 12:34
[2020-04-08 16:00] VITALS: BP 92/56
[2020-04-08] MEDS: cefTRIAXone 1gm/D5W 55ml IVPB SCH ×2 (16:34)
[2020-04-08 20:00] VITALS: BP 94/57
[2020-04-08] MEDS: QUEtiapine 200mg tab ORAL SCH (21:28)
[2020-04-09] VITALS: BP 94/55
[2020-04-09 04:00] VITALS: BP 94/51
[2020-04-09 06:29] LABS: HEMATOCRIT 23.6 % (37.0-47.0); HEMOGLOBIN 7.8 G/DL (12.0-16.0); MEAN CORPUSCULAR VOLUME 93 FL (80-99); PLATELET COUNT 307 K/UL (150-450); RED BLOOD COUNT 2.55 M/UL (4.20-5.40); RED CELL DISTRIBUTION WIDTH 16.1 % (11.6-14.8); WHITE BLOOD COUNT 16.4 K/UL (4.8-10.8)
[2020-04-09 06:39] LABS: ANION GAP 13 mmol/L (5-15); BLOOD UREA NITROGEN 63 mg/dL (7-18); CALCIUM 10.4 MG/DL (8.5-10.1); CARBON DIOXIDE 19 MMOL/L (21-32); CHLORIDE 111 MMOL/L (98-107); POTASSIUM 3.7 MMOL/L (3.5-5.1); SODIUM 143 MMOL/L (136-145)
--- NOTE | 2020-04-09 07:14 | General Progress Note ---
Assessment/Plan Problem List: (1) Iatrogenic hyperthyroidism ICD Codes: E05.80 - Other thyrotoxicosis without thyrotoxic crisis or storm SNOMED: 375300570 (2) Hypothyroid ICD Codes: E03.9 - Hypothyroidism, unspecified SNOMED: 02907189 (3) UTI (urinary tract infection) ICD Codes: N39.0 - Urinary tract infection, site not specified SNOMED: 85025009 Qualifiers: Qualified Codes: N30.01 - Acute cystitis with hematuria (4) Symptomatic anemia ICD Codes: D64.9 - Anemia, unspecified SNOMED: 860913137 Status: stable, unchanged Assessment/Plan: continue Levothyroxine 75 mcg daily repeat thyroid function in 3-4 weeks I sign off for now Subjective Allergies: Coded Allergies: No Known Allergies (Unverified , 10/09/18) All Systems: reviewed and negative except above Subjective events noted Objective Last 24 Hour Vital Signs Date Time Temp Pulse Resp B/P (MAP) Pulse Ox O2 Delivery O2 Flow Rate FiO2 04/09/20 04:00 98.1 57 18 94/51 (65) 95 04/09/20 00:00 98.4 52 18 94/55 (68) 96 04/08/20 21:00 Room Air 04/08/20 20:00 98.1 57 18 94/57 (69) 95 04/08/20 16:00 97.4 56 18 92/56 (68) 98 04/08/20 12:05 98.6 56 18 96/61 (73) 97 04/08/20 10:50 Room Air 04/08/20 08:00 97.7 52 18 96/60 (72) 98 Intake and Output 04/08/20 04/09/20 19:00 07:00 Intake Total 2110 ml 1680 ml Balance 2110 ml 1680 ml Intake Oral 480 ml IV Total 1310 ml 1200 ml Other 800 ml # Voids 4 Laboratory Tests 04/09/20 06:00: White Blood Count 16.4H, Red Blood Count 2.55L, Hemoglobin 7.8L, Hematocrit 23.6L, Mean Corpuscular Volume 93, Mean Corpuscular Hemoglobin 30.4, Mean Corpuscular Hemoglobin Concent 32.9, Red Cell Distribution Width 16.1H, Platelet Count 307, Mean Platelet Volume 4.6L, Neutrophils (%) (Auto) , Lymphocytes (%) (Auto) , Monocytes (%) (Auto) , Eosinophils (%) (Auto) , Basophils (%) (Auto) , Neutrophils % (Manual) [Pending], Lymphocytes % (Manual) [Pending], Platelet Estimate [Pending], Platelet Morphology [Pending], Sodium Level 143, Potassium Level 3.7, Chloride Level 111H, Carbon Dioxide Level 19L, Anion Gap 13, Blood Urea Nitrogen 63H, Creatinine 3.0H, Estimat Glomerular Filtration Rate 16.4, Glucose Level 109H, Calcium Level 10.4H Height (Feet): 5 Height (Inches): 5.00 Weight (Pounds): 150 General Appearance: no apparent distress Neck: normal alignment Cardiovascular: normal rate Respiratory/Chest: lungs clear Abdomen: normal bowel sounds Objective Current Medications Medications (Trade) Dose Ordered Sig/Alix Route PRN Reason Start Time Stop Time Status Last Admin Dose Admin Acetaminophen (Tylenol) 650 mg Q4H PRN ORAL Mild Pain (Pain Scale 1-3) 04/05/20 15:30 05/05/20 15:29 04/06/20 08:56 Bisacodyl (Dulcolax) 10 mg DAILYPRN PRN RECTAL Constipation 04/05/20 16:30 07/04/20 16:29 Ceftriaxone Sodium 1 gm/ Dextrose 55 ml @ 110 mls/hr Q24H IVPB 04/08/20 16:00 04/15/20 15:59 04/08/20 16:34 Citalopram Hydrobromide (CeleXA) 20 mg DAILY ORAL 04/07/20 09:00 05/07/20 08:59 04/08/20 08:05 Dextrose 1,000 ml @ 150 mls/hr Q6H40M IV 04/07/20 12:45 05/07/20 12:44 04/09/20 04:45 Dextrose (Dextrose 50%) 25 ml Q30M PRN IV Hypoglycemia 04/05/20 15:30 07/04/20 15:29 Dextrose (Dextrose 50%) 50 ml Q30M PRN IV Hypoglycemia 04/05/20 15:30 07/04/20 15:29 Diphenhydramine HCl (Benadryl) 25 mg Q6H PRN ORAL Itching/Pruritis 04/05/20 15:30 05/05/20 15:29 Divalproex Sodium (Depakote ER) 500 mg EVERY 12 HOURS ORAL 04/06/20 21:00 05/06/20 20:59 04/08/20 21:28 Docusate Sodium (Colace) 100 mg TID ORAL 04/06/20 13:00 05/05/20 20:59 04/08/20 17:03 Folic Acid (Folate) 1 mg DAILY ORAL 04/09/20 09:00 05/09/20 08:59 Heparin Sodium (Porcine) (Heparin 5000 units/ml) 5,000 units EVERY 12 HOURS SUBQ 04/05/20 21:00 05/20/20 20:59 04/08/20 21:29 Levothyroxine Sodium (Synthroid) 75 mcg DAILY@0630 ORAL 04/08/20 06:30 05/07/20 06:29 04/09/20 05:39 Lorazepam (Ativan) 1 mg Q6H PRN ORAL For Anxiety 04/06/20 14:30 04/13/20 14:29 Morphine Sulfate (Morphine Sulfate) 1 mg Q6H PRN IVP For Pain 04/05/20 15:30 04/12/20 15:29 Nitroglycerin (Ntg) 0.4 mg Q5M X 3 DOSES PRN SL Prn Chest Pain 04/05/20 15:30 05/05/20 15:29 Olanzapine (ZyPREXA) 5 mg BID ORAL 04/06/20 18:00 05/21/20 17:59 04/08/20 17:03 Ondansetron HCl (Zofran) 4 mg Q6H PRN IVP Nausea & Vomiting 04/05/20 15:30 05/05/20 15:29 Pantoprazole (Protonix) 40 mg Q12HR ORAL 04/06/20 21:00 05/06/20 08:59 04/08/20 21:28 Quetiapine Fumarate (SEROqueL) 200 mg QHS ORAL 04/06/20 21:00 05/21/20 20:59 04/08/20 21:28 Zolpidem Tartrate (Ambien) 5 mg HSPRN PRN ORAL Insomnia 04/05/20 15:30 04/12/20 15:29 Thanh Love MD April 09, 2020 07:14
[2020-04-09 08:00] VITALS: BP 97/56
[2020-04-09] MEDS: Citalopram Hydrobromide 10mg Tab ORAL SCH (08:07)
[2020-04-09] MEDS: Docusate 100mg cap ORAL SCH ×3 (08:07→17:01)
[2020-04-09] MEDS: Depakote ER 500mg tab ORAL SCH ×2 (08:07→20:54)
[2020-04-09] MEDS: Heparin 5000 units/ml inj SUBQ SCH ×2 (08:08→20:54)
[2020-04-09] MEDS ORDERED: Levofloxacin 500mg tab ORAL SCH (09:00)
--- NOTE | 2020-04-09 10:04 | General Progress Note ---
Assessment/Plan Problem List: (1) CKD (chronic kidney disease) ICD Codes: N18.9 - Chronic kidney disease, unspecified SNOMED: 258948470 (2) Diabetes ICD Codes: E11.9 - Type 2 diabetes mellitus without complications SNOMED: 14630865 (3) COPD (chronic obstructive pulmonary disease) ICD Codes: J44.9 - Chronic obstructive pulmonary disease, unspecified SNOMED: 80568548 (4) Seizure ICD Codes: R56.9 - Unspecified convulsions SNOMED: 58273625 (5) GERD (gastroesophageal reflux disease) ICD Codes: K21.9 - Gastro-esophageal reflux disease without esophagitis SNOMED: 866160473 (6) Blind ICD Codes: H54.7 - Unspecified visual loss SNOMED: 637910530 (7) Behavioral change ICD Codes: R46.89 - Other symptoms and signs involving appearance and behavior SNOMED: 364595889 (8) UTI (urinary tract infection) ICD Codes: N39.0 - Urinary tract infection, site not specified SNOMED: 50640078 Qualifiers: Qualified Codes: N30.01 - Acute cystitis with hematuria (9) Fever ICD Codes: R50.9 - Fever, unspecified SNOMED: 948990566 Qualifiers: Qualified Codes: R50.9 - Fever, unspecified (10) Symptomatic anemia ICD Codes: D64.9 - Anemia, unspecified SNOMED: 618421844 (11) Suspected COVID-19 virus infection ICD Codes: Z20.828 - Contact with and (suspected) exposure to other viral communicable diseases SNOMED: 694939491 Status: unchanged Assessment/Plan: pt diet abx cbc bmp am aru eval Subjective Constitutional: Reports: weakness Allergies: Coded Allergies: No Known Allergies (Unverified , 10/09/18) All Systems: reviewed and negative except above Subjective sleepy calm Objective Last 24 Hour Vital Signs Date Time Temp Pulse Resp B/P (MAP) Pulse Ox O2 Delivery O2 Flow Rate FiO2 04/09/20 08:00 98.6 60 18 97/56 (70) 96 04/09/20 04:00 98.1 57 18 94/51 (65) 95 04/09/20 00:00 98.4 52 18 94/55 (68) 96 04/08/20 21:00 Room Air 04/08/20 20:00 98.1 57 18 94/57 (69) 95 04/08/20 16:00 97.4 56 18 92/56 (68) 98 04/08/20 12:05 98.6 56 18 96/61 (73) 97 04/08/20 10:50 Room Air Intake and Output 04/08/20 04/09/20 19:00 07:00 Intake Total 2110 ml 1830 ml Balance 2110 ml 1830 ml Intake Oral 480 ml IV Total 1310 ml 1350 ml Other 800 ml # Voids 4 Laboratory Tests 04/09/20 06:00: White Blood Count 16.4H, Red Blood Count 2.55L, Hemoglobin 7.8L, Hematocrit 23.6L, Mean Corpuscular Volume 93, Mean Corpuscular Hemoglobin 30.4, Mean Corpuscular Hemoglobin Concent 32.9, Red Cell Distribution Width 16.1H, Platelet Count 307, Mean Platelet Volume 4.6L, Neutrophils (%) (Auto) , Lymphocytes (%) (Auto) , Monocytes (%) (Auto) , Eosinophils (%) (Auto) , Basophils (%) (Auto) , Differential Total Cells Counted 100, Neutrophils % ( Manual) 64, Lymphocytes % (Manual) 21, Monocytes % (Manual) 11H, Eosinophils % ( Manual) 0, Basophils % (Manual) 0, Band Neutrophils 4, Platelet Estimate Adequate, Platelet Morphology Normal, Hypochromasia 3+, Anisocytosis 1+, Spherocytes 1+, Sodium Level 143, Potassium Level 3.7, Chloride Level 111H, Carbon Dioxide Level 19L, Anion Gap 13, Blood Urea Nitrogen 63H, Creatinine 3.0H , Estimat Glomerular Filtration Rate 16.4, Glucose Level 109H, Calcium Level 10.4H Height (Feet): 5 Height (Inches): 5.00 Weight (Pounds): 150 General Appearance: lethargic EENT: normal ENT inspection Neck: normal alignment Cardiovascular: normal rate, regular rhythm Respiratory/Chest: no respiratory distress, no accessory muscle use Extremities: normal range of motion Skin: normal pigmentation BryantSotoburt Rick DO April 09, 2020 10:04
--- NOTE | 2020-04-09 11:40 | Hematology/Onc Progress Note ---
Assessment/Plan Assessment/Plan Assessment and Recs # Anemia of chronic disease due to underlying chronic medical issues, multifactorial v Gi bleed --> Anemia workup has been ordered, rule out gi bleed --> No evidence of hemolysis is noted, peripheral smear has been reviewed. --> Hgb goal >7. Transfuse prn. --> Epogen or iron at this time is not particularly indicated --> Medications have been reviewed --> low threshold for gi evaluation in case has occult + --> bone marrow biopsy is not indicated given the other more likely causes -> hgb trend 8.2-->8.1 --> no hemolysis is noted # Leukocytosis r/o covid, pna --> on abx as per id --> on uti ctx rx->levo # UTI (urinary tract infection) --> on abx ---> as per id # Gerd --> on ppi # Dehydration --> per renal # Dvt ppx --> heparin sq The timing of this note does not necessarily reflect the time of the patient was seen. Greatly appreciate consultation. Subjective HEENT: Denies: no symptoms, eye pain, blurred vision, tearing, double vision, ear pain, ear discharge, nose pain, nose congestion, throat pain, throat swelling, mouth pain, mouth swelling, other Cardiovascular: Denies: no symptoms, chest pain, edema, irregular heart rate, lightheadedness, palpitations, syncope, other Respiratory: Denies: no symptoms, cough, shortness of breath, SOB with excertion, SOB at rest, sputum, wheezing, other Gastrointestinal/Abdominal: Denies: no symptoms, abdomen distended, abdominal pain, black stools, tarry stools, blood in stool, constipated, diarrhea, difficulty swallowing, nausea, poor appetite, poor fluid intake, rectal bleeding , vomiting, other Genitourinary: Denies: no symptoms, burning, discharge, frequency, flank pain, hematuria, incontinence, pain, urgency, other Endocrine: Denies: no symptoms, excessive sweating, flushing, intolerance to cold, intolerance to heat, increased hunger, increased thirst, increased urine, unexplained weight gain, unexplained weight loss, other Hematologic/Lymphatic: Denies: no symptoms, anemia, easy bleeding, easy bruising, adenopathy, other Allergies: Coded Allergies: No Known Allergies (Unverified , 10/09/18) Subjective 5/10 no bleeding, hgb 10.1 wbc is higher, no bleeidng 04/09 for transfusion, awaiting consent from family members, no bleeding Objective Objective Current Medications Medications (Trade) Dose Ordered Sig/Alix Route PRN Reason Start Time Stop Time Status Last Admin Dose Admin Acetaminophen (Tylenol) 650 mg Q4H PRN ORAL Mild Pain (Pain Scale 1-3) 04/05/20 15:30 05/05/20 15:29 04/06/20 08:56 Bisacodyl (Dulcolax) 10 mg DAILYPRN PRN RECTAL Constipation 04/05/20 16:30 07/04/20 16:29 Ceftriaxone Sodium 1 gm/ Dextrose 55 ml @ 110 mls/hr Q24H IVPB 04/08/20 16:00 04/15/20 15:59 04/08/20 16:34 Citalopram Hydrobromide (CeleXA) 20 mg DAILY ORAL 04/07/20 09:00 05/07/20 08:59 04/09/20 08:07 Dextrose 1,000 ml @ 150 mls/hr Q6H40M IV 04/07/20 12:45 05/07/20 12:44 04/09/20 08:13 Dextrose (Dextrose 50%) 25 ml Q30M PRN IV Hypoglycemia 04/05/20 15:30 07/04/20 15:29 Dextrose (Dextrose 50%) 50 ml Q30M PRN IV Hypoglycemia 04/05/20 15:30 07/04/20 15:29 Diphenhydramine HCl (Benadryl) 25 mg Q6H PRN ORAL Itching/Pruritis 04/05/20 15:30 05/05/20 15:29 Divalproex Sodium (Depakote ER) 500 mg EVERY 12 HOURS ORAL 04/06/20 21:00 05/06/20 20:59 04/09/20 08:07 Docusate Sodium (Colace) 100 mg TID ORAL 04/06/20 13:00 05/05/20 20:59 04/09/20 08:07 Folic Acid (Folate) 1 mg DAILY ORAL 04/09/20 09:00 05/09/20 08:59 04/09/20 08:07 Heparin Sodium (Porcine) (Heparin 5000 units/ml) 5,000 units EVERY 12 HOURS SUBQ 04/05/20 21:00 05/20/20 20:59 04/09/20 08:08 Levothyroxine Sodium (Synthroid) 75 mcg DAILY@0630 ORAL 04/08/20 06:30 05/07/20 06:29 04/09/20 05:39 Lorazepam (Ativan) 1 mg Q6H PRN ORAL For Anxiety 04/06/20 14:30 04/13/20 14:29 Morphine Sulfate (Morphine Sulfate) 1 mg Q6H PRN IVP For Pain 04/05/20 15:30 04/12/20 15:29 Nitroglycerin (Ntg) 0.4 mg Q5M X 3 DOSES PRN SL Prn Chest Pain 04/05/20 15:30 05/05/20 15:29 Olanzapine (ZyPREXA) 5 mg BID ORAL 04/06/20 18:00 05/21/20 17:59 04/09/20 08:07 Ondansetron HCl (Zofran) 4 mg Q6H PRN IVP Nausea & Vomiting 04/05/20 15:30 05/05/20 15:29 Pantoprazole (Protonix) 40 mg Q12HR ORAL 04/06/20 21:00 05/06/20 08:59 04/09/20 08:07 Quetiapine Fumarate (SEROqueL) 200 mg QHS ORAL 04/06/20 21:00 05/21/20 20:59 04/08/20 21:28 Zolpidem Tartrate (Ambien) 5 mg HSPRN PRN ORAL Insomnia 04/05/20 15:30 04/12/20 15:29 Last 24 Hour Vital Signs Date Time Temp Pulse Resp B/P (MAP) Pulse Ox O2 Delivery O2 Flow Rate FiO2 04/09/20 08:00 98.6 60 18 97/56 (70) 96 04/09/20 04:00 98.1 57 18 94/51 (65) 95 04/09/20 00:00 98.4 52 18 94/55 (68) 96 04/08/20 21:00 Room Air 04/08/20 20:00 98.1 57 18 94/57 (69) 95 04/08/20 16:00 97.4 56 18 92/56 (68) 98 04/08/20 12:05 98.6 56 18 96/61 (73) 97 04/08/20 10:50 Room Air 04/08/20 08:00 97.7 52 18 96/60 (72) 98 04/08/20 04:00 97.2 59 16 95/44 (61) 95 04/08/20 00:00 97.7 56 18 102/62 (75) 93 04/07/20 21:00 Room Air 04/07/20 20:00 98.2 60 18 93/50 (64) 96 04/07/20 16:00 99.0 80 20 99/56 (70) 93 04/07/20 12:00 97.3 64 17 107/55 (72) 93 Intake and Output 04/08/20 04/09/20 19:00 07:00 Intake Total 2110 ml 1830 ml Balance 2110 ml 1830 ml Intake Oral 480 ml IV Total 1310 ml 1350 ml Other 800 ml # Voids 4 Labs Test 04/07/20 06:00 04/08/20 07:00 04/09/20 06:00 White Blood Count 19.1 K/UL (4.8-10.8) 19.5 K/UL (4.8-10.8) 16.4 K/UL (4.8-10.8) Red Blood Count 2.60 M/UL (4.20-5.40) 2.67 M/UL (4.20-5.40) 2.55 M/UL (4.20-5.40) Hemoglobin 8.1 G/DL (12.0-16.0) 8.1 G/DL (12.0-16.0) 7.8 G/DL (12.0-16.0) Hematocrit 24.1 % (37.0-47.0) 24.8 % (37.0-47.0) 23.6 % (37.0-47.0) Mean Corpuscular Volume 93 FL (80-99) 93 FL (80-99) 93 FL (80-99) Mean Corpuscular Hemoglobin 31.1 PG (27.0-31.0) 30.4 PG (27.0-31.0) 30.4 PG (27.0-31.0) Mean Corpuscular Hemoglobin Concent 33.5 G/DL (32.0-36.0) 32.7 G/DL (32.0-36.0) 32.9 G/DL (32.0-36.0) Red Cell Distribution Width 15.9 % (11.6-14.8) 16.0 % (11.6-14.8) 16.1 % (11.6-14.8) Platelet Count 288 K/UL (150-450) 306 K/UL (150-450) 307 K/UL (150-450) Mean Platelet Volume 4.5 FL (6.5-10.1) 4.6 FL (6.5-10.1) 4.6 FL (6.5-10.1) Neutrophils (%) (Auto) % (45.0-75.0) % (45.0-75.0) % (45.0-75.0) Lymphocytes (%) (Auto) % (20.0-45.0) % (20.0-45.0) % (20.0-45.0) Monocytes (%) (Auto) % (1.0-10.0) % (1.0-10.0) % (1.0-10.0) Eosinophils (%) (Auto) % (0.0-3.0) % (0.0-3.0) % (0.0-3.0) Basophils (%) (Auto) % (0.0-2.0) % (0.0-2.0) % (0.0-2.0) Differential Total Cells Counted 100 100 100 Neutrophils % (Manual) 70 % (45-75) 59 % (45-75) 64 % (45-75) Lymphocytes % (Manual) 13 % (20-45) 30 % (20-45) 21 % (20-45) Monocytes % (Manual) 10 % (1-10) 6 % (1-10) 11 % (1-10) Eosinophils % (Manual) 0 % (0-3) 1 % (0-3) 0 % (0-3) Basophils % (Manual) 1 % (0-2) 0 % (0-2) 0 % (0-2) Band Neutrophils 6 % (0-8) 2 % (0-8) 4 % (0-8) Platelet Estimate Adequate Adequate Adequate Platelet Morphology Normal Normal Normal Hypochromasia 2+ 1+ 3+ Anisocytosis 1+ 1+ 1+ Spherocytes 1+ 1+ Sodium Level 146 MMOL/L (136-145) 144 MMOL/L (136-145) 143 MMOL/L (136-145) Potassium Level 3.7 MMOL/L (3.5-5.1) 4.0 MMOL/L (3.5-5.1) 3.7 MMOL/L (3.5-5.1) Chloride Level 114 MMOL/L (98-107) 112 MMOL/L (98-107) 111 MMOL/L (98-107) Carbon Dioxide Level 16 MMOL/L (21-32) 18 MMOL/L (21-32) 19 MMOL/L (21-32) Anion Gap 16 mmol/L (5-15) 14 mmol/L (5-15) 13 mmol/L (5-15) Blood Urea Nitrogen 64 mg/dL (7-18) 65 mg/dL (7-18) 63 mg/dL (7-18) Creatinine 3.1 MG/DL (0.55-1.30) 3.0 MG/DL (0.55-1.30) 3.0 MG/DL (0.55-1.30) Estimat Glomerular Filtration Rate 15.8 mL/min (>60) 16.4 mL/min (>60) 16.4 mL/min (>60) Glucose Level 89 MG/DL (74-106) 75 MG/DL (74-106) 109 MG/DL (74-106) Uric Acid 9.9 MG/DL (2.6-7.2) 10.3 MG/DL (2.6-7.2) Calcium Level 10.7 MG/DL (8.5-10.1) 11.2 MG/DL (8.5-10.1) 10.4 MG/DL (8.5-10.1) Phosphorus Level 3.7 MG/DL (2.5-4.9) 4.3 MG/DL (2.5-4.9) Magnesium Level 2.6 MG/DL (1.8-2.4) 2.5 MG/DL (1.8-2.4) Total Bilirubin 0.1 MG/DL (0.2-1.0) 0.2 MG/DL (0.2-1.0) Aspartate Amino Transf (AST/SGOT) 20 U/L (15-37) 25 U/L (15-37) Alanine Aminotransferase (ALT/SGPT) 8 U/L (12-78) 10 U/L (12-78) Alkaline Phosphatase 80 U/L (46-116) 77 U/L (46-116) Total Protein 7.2 G/DL (6.4-8.2) 7.4 G/DL (6.4-8.2) Albumin 1.6 G/DL (3.4-5.0) 1.7 G/DL (3.4-5.0) Globulin 5.6 g/dL 5.7 g/dL Albumin/Globulin Ratio 0.3 (1.0-2.7) 0.3 (1.0-2.7) Myelocytes % 2 % (0-0) Reactive Lymphocytes Occasional Polychromasia 1+ Height (Feet): 5 Height (Inches): 5.00 Weight (Pounds): 150 Objective Vitals: reviewed General: NAD HEENT: nc, at Neck: supple Chest: clear breath sounds bilaterally Cardiovascular: RRR, no s3, s4 Abdomen: soft, nontender, nd Extremities: no cce, normal range of motion Neuro: alert and oriented David Ivey MD April 09, 2020 11:40
--- NOTE | 2020-04-09 11:46 | Nephrology Progress Note ---
Assessment/Plan Problem List: (1) Renal failure (ARF), acute on chronic (2) Seizure (3) UTI (urinary tract infection) (4) Blind (5) Suspected COVID-19 virus infection (6) Dehydration (7) Symptomatic anemia (8) Hypercalcemia (9) Anemia Assessment Renal failure most likely acute Underlying chronic kidney disease History of diabetes mellitus, but hemoglobin A1c is 5.7 Severe anemia Hypercalcemia Leukocytosis, UTI Seizure disorder Patient blind Has history of psych disease [facility] resident Plan April 09: Kidney ultrasound is not done until we have 2- COVID-19 tests Meanwhile the patient has hypercalcemia, anemia, renal failure so is suspicious for multiple myeloma We will give Aredia 60 mg 1 time today Will order urine and serum protein electrophoresis Continue per consultants Previously First COVID 19 test negative x1 Kidney ultrasound ordered still pending Discussed with RN Patient needs IV hydration, D5W 150 cc an hour ordered RN reports that the patient refuses IV fluid and also refuses medication at times Continue antibiotics Monitor renal parameters Urine studies, if urine specimen can be obtained Subjective ROS Limited/Unobtainable: No Constitutional: Reports: malaise, weakness Objective Objective Last 24 Hour Vital Signs Date Time Temp Pulse Resp B/P (MAP) Pulse Ox O2 Delivery O2 Flow Rate FiO2 04/09/20 08:00 98.6 60 18 97/56 (70) 96 04/09/20 04:00 98.1 57 18 94/51 (65) 95 04/09/20 00:00 98.4 52 18 94/55 (68) 96 04/08/20 21:00 Room Air 04/08/20 20:00 98.1 57 18 94/57 (69) 95 04/08/20 16:00 97.4 56 18 92/56 (68) 98 04/08/20 12:05 98.6 56 18 96/61 (73) 97 Intake and Output 04/08/20 04/09/20 19:00 07:00 Intake Total 2110 ml 1830 ml Balance 2110 ml 1830 ml Intake Oral 480 ml IV Total 1310 ml 1350 ml Other 800 ml # Voids 4 Laboratory Tests 04/09/20 06:00: White Blood Count 16.4H, Red Blood Count 2.55L, Hemoglobin 7.8L, Hematocrit 23.6L, Mean Corpuscular Volume 93, Mean Corpuscular Hemoglobin 30.4, Mean Corpuscular Hemoglobin Concent 32.9, Red Cell Distribution Width 16.1H, Platelet Count 307, Mean Platelet Volume 4.6L, Neutrophils (%) (Auto) , Lymphocytes (%) (Auto) , Monocytes (%) (Auto) , Eosinophils (%) (Auto) , Basophils (%) (Auto) , Differential Total Cells Counted 100, Neutrophils % ( Manual) 64, Lymphocytes % (Manual) 21, Monocytes % (Manual) 11H, Eosinophils % ( Manual) 0, Basophils % (Manual) 0, Band Neutrophils 4, Platelet Estimate Adequate, Platelet Morphology Normal, Hypochromasia 3+, Anisocytosis 1+, Spherocytes 1+, Sodium Level 143, Potassium Level 3.7, Chloride Level 111H, Carbon Dioxide Level 19L, Anion Gap 13, Blood Urea Nitrogen 63H, Creatinine 3.0H , Estimat Glomerular Filtration Rate 16.4, Glucose Level 109H, Calcium Level 10.4H Height (Feet): 5 Height (Inches): 5.00 Weight (Pounds): 150 General Appearance: no apparent distress Cardiovascular: normal rate Respiratory/Chest: decreased breath sounds Abdomen: soft Objective No change Sohan Lane MD April 09, 2020 11:46
[2020-04-09 12:00] VITALS: BP 107/60
[2020-04-09] MEDS ORDERED: Pamidronate Disodium Inj 60 MG in Sodium Chloride 550 ML IVPB ONE (12:30)
--- NOTE | 2020-04-09 13:29 | Infectious Diseases Prog Note ---
Assessment/Plan Assessment/Plan Assessment: Sepsis UTI -u/a wbc tnct, nit +, leuk +3; ucx >100k E.coli (R amp, bactrim, levaquin; otherwise S) Low grade fever, SP- COVID19 neg x 1 (resident from [facility] with large outbreak)- awaiting 2nd test Leukocytosis; improving ?Pneumonia - 04/06 CXR: Questionable developing bilateral hazy infiltrates, versus artifact of low lung volumes. Correlate with clinical findings -04/05 CXR; no acute process SARS-COV2 PCR neg -Bx NTD ANemia CKD GERD seizure disorder Dementia SNF resident (Tanya henderson) Plan: Continue Ceftriaxone #2 (abx d #03/06-10) for UTI -04/08 SP Levaquin #2 -04/06 SP Zosyn x1 -04/06 SP Ceftriaxone #2 -04/05 SP IV Vancomycin x1, Cefepime x1 -f/u cx -Monitor CBC/CMP, temperatures -first SARS CoV PCR neg, obtain second test -Cdiff if diarrhea -CXR am Thank you for consulting [facility]. Will continue to follow along with you, Discussed with RN. Subjective Allergies: Coded Allergies: No Known Allergies (Unverified , 10/09/18) Subjective afebrile in 24hrs leukocytosis improving Objective Vital Signs Last 24 Hour Vital Signs Date Time Temp Pulse Resp B/P (MAP) Pulse Ox O2 Delivery O2 Flow Rate FiO2 04/09/20 12:00 98.8 65 18 107/60 (76) 97 04/09/20 08:00 98.6 60 18 97/56 (70) 96 04/09/20 04:00 98.1 57 18 94/51 (65) 95 04/09/20 00:00 98.4 52 18 94/55 (68) 96 04/08/20 21:00 Room Air 04/08/20 20:00 98.1 57 18 94/57 (69) 95 04/08/20 16:00 97.4 56 18 92/56 (68) 98 Height (Feet): 5 Height (Inches): 5.00 Weight (Pounds): 150 Objective not examined to limit COVID19 exposure Laboratory Tests Test 04/09/20 06:00 04/09/20 12:10 White Blood Count 16.4 K/UL (4.8-10.8) H Red Blood Count 2.55 M/UL (4.20-5.40) L Hemoglobin 7.8 G/DL (12.0-16.0) L Hematocrit 23.6 % (37.0-47.0) L Mean Corpuscular Volume 93 FL (80-99) Mean Corpuscular Hemoglobin 30.4 PG (27.0-31.0) Mean Corpuscular Hemoglobin Concent 32.9 G/DL (32.0-36.0) Red Cell Distribution Width 16.1 % (11.6-14.8) H Platelet Count 307 K/UL (150-450) Mean Platelet Volume 4.6 FL (6.5-10.1) L Neutrophils (%) (Auto) % (45.0-75.0) Lymphocytes (%) (Auto) % (20.0-45.0) Monocytes (%) (Auto) % (1.0-10.0) Eosinophils (%) (Auto) % (0.0-3.0) Basophils (%) (Auto) % (0.0-2.0) Differential Total Cells Counted 100 Neutrophils % (Manual) 64 % (45-75) Lymphocytes % (Manual) 21 % (20-45) Monocytes % (Manual) 11 % (1-10) H Eosinophils % (Manual) 0 % (0-3) Basophils % (Manual) 0 % (0-2) Band Neutrophils 4 % (0-8) Platelet Estimate Adequate Platelet Morphology Normal Hypochromasia 3+ Anisocytosis 1+ Spherocytes 1+ Sodium Level 143 MMOL/L (136-145) Potassium Level 3.7 MMOL/L (3.5-5.1) Chloride Level 111 MMOL/L (98-107) H Carbon Dioxide Level 19 MMOL/L (21-32) L Anion Gap 13 mmol/L (5-15) Blood Urea Nitrogen 63 mg/dL (7-18) H Creatinine 3.0 MG/DL (0.55-1.30) H Estimat Glomerular Filtration Rate 16.4 mL/min (>60) Glucose Level 109 MG/DL (74-106) H Calcium Level 10.4 MG/DL (8.5-10.1) H Total Protein (PEP) Pending Albumin (PEP) Pending Globulin (PEP) Pending Albumin/Globulin Ratio Pending Durkn-3-Ikrefrbhg Pending Swipp-8-Xftppqyin Pending Beta Globulins Pending Beta Gamma Globulin Pending PEP Abnormal Protein Bands Pending Protein Electrophoresis Interpret Pending Current Medications Medications (Trade) Dose Ordered Sig/Alix Route PRN Reason Start Time Stop Time Status Last Admin Dose Admin Acetaminophen (Tylenol) 650 mg Q4H PRN ORAL Mild Pain (Pain Scale 1-3) 04/05/20 15:30 05/05/20 15:29 04/06/20 08:56 Bisacodyl (Dulcolax) 10 mg DAILYPRN PRN RECTAL Constipation 04/05/20 16:30 07/04/20 16:29 Ceftriaxone Sodium 1 gm/ Dextrose 55 ml @ 110 mls/hr Q24H IVPB 04/08/20 16:00 04/15/20 15:59 04/08/20 16:34 Citalopram Hydrobromide (CeleXA) 20 mg DAILY ORAL 04/07/20 09:00 05/07/20 08:59 04/09/20 08:07 Dextrose 1,000 ml @ 150 mls/hr Q6H40M IV 04/07/20 12:45 05/07/20 12:44 04/09/20 08:13 Dextrose (Dextrose 50%) 25 ml Q30M PRN IV Hypoglycemia 04/05/20 15:30 07/04/20 15:29 Dextrose (Dextrose 50%) 50 ml Q30M PRN IV Hypoglycemia 04/05/20 15:30 07/04/20 15:29 Diphenhydramine HCl (Benadryl) 25 mg Q6H PRN ORAL Itching/Pruritis 04/05/20 15:30 05/05/20 15:29 Divalproex Sodium (Depakote ER) 500 mg EVERY 12 HOURS ORAL 04/06/20 21:00 05/06/20 20:59 04/09/20 08:07 Docusate Sodium (Colace) 100 mg TID ORAL 04/06/20 13:00 05/05/20 20:59 04/09/20 08:07 Folic Acid (Folate) 2 mg DAILY ORAL 04/10/20 09:00 05/09/20 08:59 Heparin Sodium (Porcine) (Heparin 5000 units/ml) 5,000 units EVERY 12 HOURS SUBQ 04/05/20 21:00 05/20/20 20:59 04/09/20 08:08 Levothyroxine Sodium (Synthroid) 75 mcg DAILY@0630 ORAL 04/08/20 06:30 05/07/20 06:29 04/09/20 05:39 Lorazepam (Ativan) 1 mg Q6H PRN ORAL For Anxiety 04/06/20 14:30 04/13/20 14:29 Midodrine (Pro-Amatine) 2.5 mg THREE TIMES A DAY ORAL 04/09/20 13:00 07/08/20 12:59 Morphine Sulfate (Morphine Sulfate) 1 mg Q6H PRN IVP For Pain 04/05/20 15:30 04/12/20 15:29 Nitroglycerin (Ntg) 0.4 mg Q5M X 3 DOSES PRN SL Prn Chest Pain 04/05/20 15:30 05/05/20 15:29 Olanzapine (ZyPREXA) 5 mg BID ORAL 04/06/20 18:00 05/21/20 17:59 04/09/20 08:07 Ondansetron HCl (Zofran) 4 mg Q6H PRN IVP Nausea & Vomiting 04/05/20 15:30 05/05/20 15:29 Pamidronate Disodium 60 mg/ Sodium Chloride 550 ml @ 137.5 mls/ hr ONCE ONCE IVPB 04/09/20 12:30 04/09/20 16:29 04/09/20 13:21 Pantoprazole (Protonix) 40 mg Q12HR ORAL 04/06/20 21:00 05/06/20 08:59 04/09/20 08:07 Quetiapine Fumarate (SEROqueL) 200 mg QHS ORAL 04/06/20 21:00 05/21/20 20:59 04/08/20 21:28 Zolpidem Tartrate (Ambien) 5 mg HSPRN PRN ORAL Insomnia 04/05/20 15:30 04/12/20 15:29 Kari Chacon M.D. April 09, 2020 13:29
--- NOTE | 2020-04-09 15:51 | Pulmonology Progress Note ---
Subjective ROS Limited/Unobtainable: No Interval Events: None new Constitutional: Reports: no symptoms HEENT: Repors: no symptoms Respiratory: Reports: no symptoms Cardiovascular: Reports: no symptoms Gastrointestinal/Abdominal: Reports: no symptoms Allergies: Coded Allergies: No Known Allergies (Unverified , 10/09/18) All Systems: reviewed and negative except above Objective Last 24 Hour Vital Signs Date Time Temp Pulse Resp B/P (MAP) Pulse Ox O2 Delivery O2 Flow Rate FiO2 04/09/20 12:00 98.8 65 18 107/60 (76) 97 04/09/20 09:00 Room Air 04/09/20 08:00 98.6 60 18 97/56 (70) 96 04/09/20 04:00 98.1 57 18 94/51 (65) 95 04/09/20 00:00 98.4 52 18 94/55 (68) 96 04/08/20 21:00 Room Air 04/08/20 20:00 98.1 57 18 94/57 (69) 95 04/08/20 16:00 97.4 56 18 92/56 (68) 98 Intake and Output 04/08/20 04/09/20 19:00 07:00 Intake Total 2110 ml 1830 ml Balance 2110 ml 1830 ml Intake Oral 480 ml IV Total 1310 ml 1350 ml Other 800 ml # Voids 4 General Appearance: no acute distress HEENT: normocephalic Respiratory/Chest: chest wall non-tender, lungs clear Cardiovascular: normal peripheral pulses, normal rate Abdomen: normal bowel sounds Laboratory Tests 04/09/20 06:00: White Blood Count 16.4H, Red Blood Count 2.55L, Hemoglobin 7.8L, Hematocrit 23.6L, Mean Corpuscular Volume 93, Mean Corpuscular Hemoglobin 30.4, Mean Corpuscular Hemoglobin Concent 32.9, Red Cell Distribution Width 16.1H, Platelet Count 307, Mean Platelet Volume 4.6L, Neutrophils (%) (Auto) , Lymphocytes (%) (Auto) , Monocytes (%) (Auto) , Eosinophils (%) (Auto) , Basophils (%) (Auto) , Differential Total Cells Counted 100, Neutrophils % ( Manual) 64, Lymphocytes % (Manual) 21, Monocytes % (Manual) 11H, Eosinophils % ( Manual) 0, Basophils % (Manual) 0, Band Neutrophils 4, Platelet Estimate Adequate, Platelet Morphology Normal, Hypochromasia 3+, Anisocytosis 1+, Spherocytes 1+, Sodium Level 143, Potassium Level 3.7, Chloride Level 111H, Carbon Dioxide Level 19L, Anion Gap 13, Blood Urea Nitrogen 63H, Creatinine 3.0H , Estimat Glomerular Filtration Rate 16.4, Glucose Level 109H, Calcium Level 10.4H 04/09/20 12:10: Total Protein (PEP) [Pending], Albumin (PEP) [Pending], Globulin (PEP) [Pending] , Albumin/Globulin Ratio [Pending], Dgrrd-0-Qyitfbafp [Pending], Alpha-2- Globulins [Pending], Beta Globulins [Pending], Beta Gamma Globulin [Pending], PEP Abnormal Protein Bands [Pending], Protein Electrophoresis Interpret [Pending ] Current Medications Medications (Trade) Dose Ordered Sig/Alix Route PRN Reason Start Time Stop Time Status Last Admin Dose Admin Acetaminophen (Tylenol) 650 mg Q4H PRN ORAL Mild Pain (Pain Scale 1-3) 04/05/20 15:30 05/05/20 15:29 04/06/20 08:56 Bisacodyl (Dulcolax) 10 mg DAILYPRN PRN RECTAL Constipation 04/05/20 16:30 07/04/20 16:29 Ceftriaxone Sodium 1 gm/ Dextrose 55 ml @ 110 mls/hr Q24H IVPB 04/08/20 16:00 04/15/20 15:59 04/08/20 16:34 Citalopram Hydrobromide (CeleXA) 20 mg DAILY ORAL 04/07/20 09:00 05/07/20 08:59 04/09/20 08:07 Dextrose 1,000 ml @ 150 mls/hr Q6H40M IV 04/07/20 12:45 05/07/20 12:44 04/09/20 08:13 Dextrose (Dextrose 50%) 25 ml Q30M PRN IV Hypoglycemia 04/05/20 15:30 07/04/20 15:29 Dextrose (Dextrose 50%) 50 ml Q30M PRN IV Hypoglycemia 04/05/20 15:30 07/04/20 15:29 Diphenhydramine HCl (Benadryl) 25 mg Q6H PRN ORAL Itching/Pruritis 04/05/20 15:30 05/05/20 15:29 Divalproex Sodium (Depakote ER) 500 mg EVERY 12 HOURS ORAL 04/06/20 21:00 05/06/20 20:59 04/09/20 08:07 Docusate Sodium (Colace) 100 mg TID ORAL 04/06/20 13:00 05/05/20 20:59 04/09/20 13:42 Epoetin Enrique (Epoetin Enrique-EPBX(NON ESRD)) 4,000 unit THU-THU-THU SUBQ 04/09/20 21:00 07/08/20 20:59 Folic Acid (Folate) 2 mg DAILY ORAL 04/10/20 09:00 05/09/20 08:59 Heparin Sodium (Porcine) (Heparin 5000 units/ml) 5,000 units EVERY 12 HOURS SUBQ 04/05/20 21:00 05/20/20 20:59 04/09/20 08:08 Levothyroxine Sodium (Synthroid) 75 mcg DAILY@0630 ORAL 04/08/20 06:30 05/07/20 06:29 04/09/20 05:39 Lorazepam (Ativan) 1 mg Q6H PRN ORAL For Anxiety 04/06/20 14:30 04/13/20 14:29 Midodrine (Pro-Amatine) 2.5 mg THREE TIMES A DAY ORAL 04/09/20 13:00 07/08/20 12:59 04/09/20 13:42 Morphine Sulfate (Morphine Sulfate) 1 mg Q6H PRN IVP For Pain 04/05/20 15:30 04/12/20 15:29 Nitroglycerin (Ntg) 0.4 mg Q5M X 3 DOSES PRN SL Prn Chest Pain 04/05/20 15:30 05/05/20 15:29 Olanzapine (ZyPREXA) 5 mg BID ORAL 04/06/20 18:00 05/21/20 17:59 04/09/20 08:07 Ondansetron HCl (Zofran) 4 mg Q6H PRN IVP Nausea & Vomiting 04/05/20 15:30 05/05/20 15:29 Pamidronate Disodium 60 mg/ Sodium Chloride 550 ml @ 137.5 mls/ hr ONCE ONCE IVPB 04/09/20 12:30 04/09/20 16:29 04/09/20 13:21 Pantoprazole (Protonix) 40 mg Q12HR ORAL 04/06/20 21:00 05/06/20 08:59 04/09/20 08:07 Quetiapine Fumarate (SEROqueL) 200 mg QHS ORAL 04/06/20 21:00 05/21/20 20:59 04/08/20 21:28 Zolpidem Tartrate (Ambien) 5 mg HSPRN PRN ORAL Insomnia 04/05/20 15:30 04/12/20 15:29 Assessment/Plan Assessment/Plan IMPRESSION: 1. Leukocytosis. 2. Anemia. 3. CKD. 4. Seizure disorder. 5. COPD. 6. intermediate resident. DISCUSSION: Seen by ID; continue empiric antibiotics. Changes reviewed per ID Continue medications. I will follow. Respiratory status is stable Jerel Walker M.D. Jerel Walker MD April 09, 2020 15:51
[2020-04-09 16:00] VITALS: BP 110/64
--- NOTE | 2020-04-09 16:30 | Progress Note ---
DATE: 04/09/2020 SUBJECTIVE: This is a female patient. She has anemia. She also has altered mental status and confusion. Overall decline in cognition below her baseline. That is why, her attending has requested daily psychiatric consultation. MENTAL STATUS EXAMINATION: This is a 54-year-old female patient. Her appearance is disheveled. Attitude, irritable and agitated. Affect, guarded and restricted. Intellect poor because she does not know current events, does not know last four presidents. Insight and judgment is poor. DIAGNOSIS: Major depressive disorder, mild, recurrent with psychotic features, rule out dementia with psychosis. PLAN: Plan for this patient is to treat her with psychotropic medication to stabilize her mood. Provided her with 20 minutes of cognitive behavioral therapy to help her identify automatic negative thoughts and help her convert negative thoughts to more positive thoughts to reduce depression, anxiety, and mood lability. Chart reviewed. Discussed with staff. Seen and assessed at bedside. Encouraged her to interact appropriately with staff and other patients. Pamela Maldonado M.D. DR: JUDITH JOB#: [id number] CC:
[2020-04-09 20:00] VITALS: BP 103/51
[2020-04-09] MEDS: Epoetin Alfa-EPBX (NON ESRD)4000 units/ml vial SUBQ SCH (20:49)
[2020-04-09] MEDS: cefTRIAXone 1gm/D5W 55ml IVPB SCH ×2 (20:50)
[2020-04-09] MEDS: QUEtiapine 200mg tab ORAL SCH (20:53)
[2020-04-10] VITALS (7 sets, daily range): BP systolic 86–155; BP diastolic 47–89
[2020-04-10 08:34] LABS: HEMATOCRIT 26.2 % (37.0-47.0); HEMOGLOBIN 8.4 G/DL (12.0-16.0); MEAN CORPUSCULAR VOLUME 93 FL (80-99); PLATELET COUNT 343 K/UL (150-450); RED CELL DISTRIBUTION WIDTH 15.8 % (11.6-14.8); WHITE BLOOD COUNT 16.5 K/UL (4.8-10.8)
[2020-04-10] MEDS ORDERED: Tubing IV Secondary IV ONE (08:52)
[2020-04-10 08:54] LABS: ALANINE AMINOTRANSFERASE 11 U/L (12-78); ALBUMIN 1.9 G/DL (3.4-5.0); ALBUMIN/GLOBULIN RATIO 0.3 (1.0-2.7); ALKALINE PHOSPHATASE 73 U/L (46-116); ANION GAP 14 mmol/L (5-15); ASPARTATE AMINO TRANSFERASE 24 U/L (15-37); BILIRUBIN,TOTAL 0.2 MG/DL (0.2-1.0); BLOOD UREA NITROGEN 56 mg/dL (7-18); CARBON DIOXIDE 18 MMOL/L (21-32); CHLORIDE 110 MMOL/L (98-107); CREATININE 2.7 MG/DL (0.55-1.30); SODIUM 142 MMOL/L (136-145)
--- NOTE | 2020-04-10 08:57 | Hematology/Onc Progress Note ---
Assessment/Plan Assessment/Plan Assessment and Recs # Anemia of chronic disease due to underlying chronic medical issues, multifactorial v Gi bleed --> Anemia workup has been ordered, rule out gi bleed --> No evidence of hemolysis is noted, peripheral smear has been reviewed. --> Hgb goal >7. Transfuse prn. --> Epogen started --> Medications have been reviewed --> low threshold for gi evaluation in case has occult + --> bone marrow biopsy is not indicated given the other more likely causes --> hgb trend 8.2-->8.1-->8.4 --> no hemolysis is noted # Leukocytosis r/o covid, pna --> on abx as per id --> on uti ctx rx->levo-->cftx # UTI (urinary tract infection) --> on abx ---> as per id # Gerd --> on ppi # Dehydration --> per renal # Dvt ppx --> heparin sq The timing of this note does not necessarily reflect the time of the patient was seen. Greatly appreciate consultation. Subjective Allergies: Coded Allergies: No Known Allergies (Unverified , 10/09/18) Subjective 04/08 no bleeding, hgb 10.1 wbc is higher, no bleeidng 04/09 for transfusion, awaiting consent from family members, no bleeding 04/10 no transfusion, repeat hgb 8.4, on cftx, no sob Objective Objective Current Medications Medications (Trade) Dose Ordered Sig/Alix Route PRN Reason Start Time Stop Time Status Last Admin Dose Admin Acetaminophen (Tylenol) 650 mg Q4H PRN ORAL Mild Pain (Pain Scale 1-3) 04/05/20 15:30 05/05/20 15:29 04/10/20 01:14 Bisacodyl (Dulcolax) 10 mg DAILYPRN PRN RECTAL Constipation 04/05/20 16:30 07/04/20 16:29 Ceftriaxone Sodium 1 gm/ Dextrose 55 ml @ 110 mls/hr Q24H IVPB 04/08/20 16:00 04/15/20 15:59 04/09/20 20:50 Citalopram Hydrobromide (CeleXA) 20 mg DAILY ORAL 04/07/20 09:00 05/07/20 08:59 04/09/20 08:07 Dextrose 1,000 ml @ 150 mls/hr Q6H40M IV 04/07/20 12:45 05/07/20 12:44 04/10/20 06:35 Dextrose (Dextrose 50%) 25 ml Q30M PRN IV Hypoglycemia 04/05/20 15:30 07/04/20 15:29 Dextrose (Dextrose 50%) 50 ml Q30M PRN IV Hypoglycemia 04/05/20 15:30 07/04/20 15:29 Diphenhydramine HCl (Benadryl) 25 mg Q6H PRN ORAL Itching/Pruritis 04/05/20 15:30 05/05/20 15:29 Divalproex Sodium (Depakote ER) 500 mg EVERY 12 HOURS ORAL 04/06/20 21:00 05/06/20 20:59 04/09/20 20:54 Docusate Sodium (Colace) 100 mg TID ORAL 04/06/20 13:00 05/05/20 20:59 04/09/20 17:01 Epoetin Enrique (Epoetin Enrique-EPBX(NON ESRD)) 4,000 unit THU-THU-THU SUBQ 04/09/20 21:00 07/08/20 20:59 04/09/20 20:49 Folic Acid (Folate) 2 mg DAILY ORAL 04/10/20 09:00 05/09/20 08:59 Heparin Sodium (Porcine) (Heparin 5000 units/ml) 5,000 units EVERY 12 HOURS SUBQ 04/05/20 21:00 05/20/20 20:59 04/09/20 20:54 Levothyroxine Sodium (Synthroid) 75 mcg DAILY@0630 ORAL 04/08/20 06:30 05/07/20 06:29 04/10/20 06:34 Lorazepam (Ativan) 1 mg Q6H PRN ORAL For Anxiety 04/06/20 14:30 04/13/20 14:29 Midodrine (Pro-Amatine) 2.5 mg THREE TIMES A DAY ORAL 04/09/20 13:00 07/08/20 12:59 04/09/20 17:01 Morphine Sulfate (Morphine Sulfate) 1 mg Q6H PRN IVP For Pain 04/05/20 15:30 04/12/20 15:29 Nitroglycerin (Ntg) 0.4 mg Q5M X 3 DOSES PRN SL Prn Chest Pain 04/05/20 15:30 05/05/20 15:29 Olanzapine (ZyPREXA) 5 mg BID ORAL 04/06/20 18:00 05/21/20 17:59 04/09/20 17:01 Ondansetron HCl (Zofran) 4 mg Q6H PRN IVP Nausea & Vomiting 04/05/20 15:30 05/05/20 15:29 Pantoprazole (Protonix) 40 mg Q12HR ORAL 04/06/20 21:00 05/06/20 08:59 04/09/20 20:53 Quetiapine Fumarate (SEROqueL) 200 mg QHS ORAL 04/06/20 21:00 05/21/20 20:59 04/09/20 20:53 Zolpidem Tartrate (Ambien) 5 mg HSPRN PRN ORAL Insomnia 04/05/20 15:30 04/12/20 15:29 Last 24 Hour Vital Signs Date Time Temp Pulse Resp B/P (MAP) Pulse Ox O2 Delivery O2 Flow Rate FiO2 04/10/20 04:00 97.4 57 19 105/55 (72) 96 04/10/20 00:00 98.7 55 19 94/52 (66) 96 04/09/20 21:00 Room Air 04/09/20 20:00 98.2 50 19 103/51 (68) 98 04/09/20 16:00 98.6 71 19 110/64 (79) 97 04/09/20 12:00 98.8 65 18 107/60 (76) 97 04/09/20 09:00 Room Air 04/09/20 08:00 98.6 60 18 97/56 (70) 96 04/09/20 04:00 98.1 57 18 94/51 (65) 95 04/09/20 00:00 98.4 52 18 94/55 (68) 96 04/08/20 21:00 Room Air 04/08/20 20:00 98.1 57 18 94/57 (69) 95 04/08/20 16:00 97.4 56 18 92/56 (68) 98 04/08/20 12:05 98.6 56 18 96/61 (73) 97 04/08/20 10:50 Room Air Intake and Output 04/09/20 04/10/20 19:00 07:00 Intake Total 2350.0 ml 1105 ml Balance 2350.0 ml 1105 ml Intake Oral 600 ml IV Total 1750.0 ml 1105 ml # Voids 2 2 Labs Test 04/08/20 07:00 04/09/20 06:00 04/09/20 12:10 04/10/20 08:05 White Blood Count 19.5 K/UL (4.8-10.8) 16.4 K/UL (4.8-10.8) 16.5 K/UL (4.8-10.8) Red Blood Count 2.67 M/UL (4.20-5.40) 2.55 M/UL (4.20-5.40) 2.80 M/UL (4.20-5.40) Hemoglobin 8.1 G/DL (12.0-16.0) 7.8 G/DL (12.0-16.0) 8.4 G/DL (12.0-16.0) Hematocrit 24.8 % (37.0-47.0) 23.6 % (37.0-47.0) 26.2 % (37.0-47.0) Mean Corpuscular Volume 93 FL (80-99) 93 FL (80-99) 93 FL (80-99) Mean Corpuscular Hemoglobin 30.4 PG (27.0-31.0) 30.4 PG (27.0-31.0) 30.0 PG (27.0-31.0) Mean Corpuscular Hemoglobin Concent 32.7 G/DL (32.0-36.0) 32.9 G/DL (32.0-36.0) 32.2 G/DL (32.0-36.0) Red Cell Distribution Width 16.0 % (11.6-14.8) 16.1 % (11.6-14.8) 15.8 % (11.6-14.8) Platelet Count 306 K/UL (150-450) 307 K/UL (150-450) 343 K/UL (150-450) Mean Platelet Volume 4.6 FL (6.5-10.1) 4.6 FL (6.5-10.1) 4.5 FL (6.5-10.1) Neutrophils (%) (Auto) % (45.0-75.0) % (45.0-75.0) % (45.0-75.0) Lymphocytes (%) (Auto) % (20.0-45.0) % (20.0-45.0) % (20.0-45.0) Monocytes (%) (Auto) % (1.0-10.0) % (1.0-10.0) % (1.0-10.0) Eosinophils (%) (Auto) % (0.0-3.0) % (0.0-3.0) % (0.0-3.0) Basophils (%) (Auto) % (0.0-2.0) % (0.0-2.0) % (0.0-2.0) Differential Total Cells Counted 100 100 Neutrophils % (Manual) 59 % (45-75) 64 % (45-75) Lymphocytes % (Manual) 30 % (20-45) 21 % (20-45) Monocytes % (Manual) 6 % (1-10) 11 % (1-10) Eosinophils % (Manual) 1 % (0-3) 0 % (0-3) Basophils % (Manual) 0 % (0-2) 0 % (0-2) Myelocytes % 2 % (0-0) Band Neutrophils 2 % (0-8) 4 % (0-8) Reactive Lymphocytes Occasional Platelet Estimate Adequate Adequate Platelet Morphology Normal Normal Polychromasia 1+ Hypochromasia 1+ 3+ Anisocytosis 1+ 1+ Sodium Level 144 MMOL/L (136-145) 143 MMOL/L (136-145) Potassium Level 4.0 MMOL/L (3.5-5.1) 3.7 MMOL/L (3.5-5.1) Chloride Level 112 MMOL/L (98-107) 111 MMOL/L (98-107) Carbon Dioxide Level 18 MMOL/L (21-32) 19 MMOL/L (21-32) Anion Gap 14 mmol/L (5-15) 13 mmol/L (5-15) Blood Urea Nitrogen 65 mg/dL (7-18) 63 mg/dL (7-18) Creatinine 3.0 MG/DL (0.55-1.30) 3.0 MG/DL (0.55-1.30) Estimat Glomerular Filtration Rate 16.4 mL/min (>60) 16.4 mL/min (>60) Glucose Level 75 MG/DL (74-106) 109 MG/DL (74-106) Uric Acid 10.3 MG/DL (2.6-7.2) Calcium Level 11.2 MG/DL (8.5-10.1) 10.4 MG/DL (8.5-10.1) Phosphorus Level 4.3 MG/DL (2.5-4.9) Magnesium Level 2.5 MG/DL (1.8-2.4) Total Bilirubin 0.2 MG/DL (0.2-1.0) Aspartate Amino Transf (AST/SGOT) 25 U/L (15-37) Alanine Aminotransferase (ALT/SGPT) 10 U/L (12-78) Alkaline Phosphatase 77 U/L (46-116) Total Protein 7.4 G/DL (6.4-8.2) Albumin 1.7 G/DL (3.4-5.0) Globulin 5.7 g/dL Albumin/Globulin Ratio 0.3 (1.0-2.7) Spherocytes 1+ Height (Feet): 5 Height (Inches): 5.00 Weight (Pounds): 150 Objective Vitals: reviewed General: NAD HEENT: nc, at, legally blind+ Neck: supple Chest: clear breath sounds bilaterally Cardiovascular: RRR, no s3, s4 Abdomen: soft, nontender, nd Extremities: no cce, normal range of motion Neuro: alert and oriented David Ivey MD April 10, 2020 08:57
[2020-04-10] MEDS: Docusate 100mg cap ORAL SCH ×3 (09:12→17:05)
[2020-04-10] MEDS: Depakote ER 500mg tab ORAL SCH ×2 (09:12→21:36)
[2020-04-10] MEDS: Citalopram Hydrobromide 10mg Tab ORAL SCH (09:12)
[2020-04-10] MEDS: Heparin 5000 units/ml inj SUBQ SCH ×2 (09:14→21:39)
[2020-04-10 09:37] LABS: PHOSPHORUS 3.8 MG/DL (2.5-4.9)
--- NOTE | 2020-04-10 09:43 | Infectious Diseases Prog Note ---
Assessment/Plan Assessment/Plan Assessment: Sepsis UTI -u/a wbc tnct, nit +, leuk +3; ucx >100k E.coli (R amp, bactrim, levaquin; otherwise S) Low grade fever, SP- COVID19 neg x 2 (resident from [place] with large outbreak)- Leukocytosis; improving ?Pneumonia 04/10 CXR: No acute process -04/08 SARS-COV2 PCR neg - 04/06 CXR: Questionable developing bilateral hazy infiltrates, versus artifact of low lung volumes. Correlate with clinical findings -04/05 CXR; no acute process SARS-COV2 PCR neg -Bx NTD ANemia MARIA C on CKD GERD seizure disorder Dementia SNF resident (Tanya henderson) Plan: Continue Ceftriaxone #3 (abx d #04/05-) for UTI -04/08 SP Levaquin #2 -04/06 SP Zosyn x1 -04/06 SP Ceftriaxone #2 -04/05 SP IV Vancomycin x1, Cefepime x1 -f/u cx -Monitor CBC/CMP, temperatures -COVID19 neg x2; ok to dc isolation -Cdiff if diarrhea Thank you for consulting [facility]. Will continue to follow along with you, Discussed with RN. Subjective Allergies: Coded Allergies: No Known Allergies (Unverified , 10/09/18) Subjective afebrile at RA Bcx NTD 2nd COVID neg Objective Vital Signs Last 24 Hour Vital Signs Date Time Temp Pulse Resp B/P (MAP) Pulse Ox O2 Delivery O2 Flow Rate FiO2 04/10/20 04:00 97.4 57 19 105/55 (72) 96 04/10/20 00:00 98.7 55 19 94/52 (66) 96 04/09/20 21:00 Room Air 04/09/20 20:00 98.2 50 19 103/51 (68) 98 04/09/20 16:00 98.6 71 19 110/64 (79) 97 04/09/20 12:00 98.8 65 18 107/60 (76) 97 Height (Feet): 5 Height (Inches): 5.00 Weight (Pounds): 150 Objective General: NAD HEENT: nc, at, legally blind+ Neck: supple Chest: clear breath sounds bilaterally Cardiovascular: RRR, no s3, s4 Abdomen: soft, nontender, nd Extremities: no cce, normal range of motion Neuro: alert and oriented Microbiology Date/Time Source Procedure Growth Status 04/08/20 06:50 Nasopharynx Coronavirus COVID-19 PCR ([facility]) - Final Complete Laboratory Tests Test 04/09/20 12:10 04/10/20 08:05 Total Protein (PEP) Pending Albumin (PEP) Pending Globulin (PEP) Pending Albumin/Globulin Ratio Pending 0.3 (1.0-2.7) L [id number] Pending [id number] Pending Beta Globulins Pending Beta Gamma Globulin Pending PEP Abnormal Protein Bands Pending Protein Electrophoresis Interpret Pending White Blood Count 16.5 K/UL (4.8-10.8) H Red Blood Count 2.80 M/UL (4.20-5.40) L Hemoglobin 8.4 G/DL (12.0-16.0) L Hematocrit 26.2 % (37.0-47.0) L Mean Corpuscular Volume 93 FL (80-99) Mean Corpuscular Hemoglobin 30.0 PG (27.0-31.0) Mean Corpuscular Hemoglobin Concent 32.2 G/DL (32.0-36.0) Red Cell Distribution Width 15.8 % (11.6-14.8) H Platelet Count 343 K/UL (150-450) Mean Platelet Volume 4.5 FL (6.5-10.1) L Neutrophils (%) (Auto) % (45.0-75.0) Lymphocytes (%) (Auto) % (20.0-45.0) Monocytes (%) (Auto) % (1.0-10.0) Eosinophils (%) (Auto) % (0.0-3.0) Basophils (%) (Auto) % (0.0-2.0) Neutrophils % (Manual) Pending Lymphocytes % (Manual) Pending Platelet Estimate Pending Platelet Morphology Pending Sodium Level 142 MMOL/L (136-145) Potassium Level 4.0 MMOL/L (3.5-5.1) Chloride Level 110 MMOL/L (98-107) H Carbon Dioxide Level 18 MMOL/L (21-32) L Anion Gap 14 mmol/L (5-15) Blood Urea Nitrogen 56 mg/dL (7-18) H Creatinine 2.7 MG/DL (0.55-1.30) H Estimat Glomerular Filtration Rate 18.5 mL/min (>60) Glucose Level 99 MG/DL (74-106) Uric Acid Pending Calcium Level 11.0 MG/DL (8.5-10.1) H Phosphorus Level Pending Magnesium Level Pending Total Bilirubin 0.2 MG/DL (0.2-1.0) Aspartate Amino Transf (AST/SGOT) 24 U/L (15-37) Alanine Aminotransferase (ALT/SGPT) 11 U/L (12-78) L Alkaline Phosphatase 73 U/L (46-116) Total Protein 7.7 G/DL (6.4-8.2) Albumin 1.9 G/DL (3.4-5.0) L Globulin 5.8 g/dL Current Medications Medications (Trade) Dose Ordered Sig/Alix Route PRN Reason Start Time Stop Time Status Last Admin Dose Admin Acetaminophen (Tylenol) 650 mg Q4H PRN ORAL Mild Pain (Pain Scale 1-3) 04/05/20 15:30 05/05/20 15:29 04/10/20 01:14 Bisacodyl (Dulcolax) 10 mg DAILYPRN PRN RECTAL Constipation 04/05/20 16:30 07/04/20 16:29 Ceftriaxone Sodium 1 gm/ Dextrose 55 ml @ 110 mls/hr Q24H IVPB 04/08/20 16:00 04/15/20 15:59 04/09/20 20:50 Citalopram Hydrobromide (CeleXA) 20 mg DAILY ORAL 04/07/20 09:00 05/07/20 08:59 04/09/20 08:07 Dextrose 1,000 ml @ 150 mls/hr Q6H40M IV 04/07/20 12:45 05/07/20 12:44 04/10/20 06:35 Dextrose (Dextrose 50%) 25 ml Q30M PRN IV Hypoglycemia 04/05/20 15:30 07/04/20 15:29 Dextrose (Dextrose 50%) 50 ml Q30M PRN IV Hypoglycemia 04/05/20 15:30 07/04/20 15:29 Diphenhydramine HCl (Benadryl) 25 mg Q6H PRN ORAL Itching/Pruritis 04/05/20 15:30 05/05/20 15:29 Divalproex Sodium (Depakote ER) 500 mg EVERY 12 HOURS ORAL 04/06/20 21:00 05/06/20 20:59 04/09/20 20:54 Docusate Sodium (Colace) 100 mg TID ORAL 04/06/20 13:00 05/05/20 20:59 04/09/20 17:01 Epoetin Enrique (Epoetin Enrique-EPBX(NON ESRD)) 4,000 unit THU-THU-THU SUBQ 04/09/20 21:00 07/08/20 20:59 04/09/20 20:49 Folic Acid (Folate) 2 mg DAILY ORAL 04/10/20 09:00 05/09/20 08:59 Heparin Sodium (Porcine) (Heparin 5000 units/ml) 5,000 units EVERY 12 HOURS SUBQ 04/05/20 21:00 05/20/20 20:59 04/09/20 20:54 Levothyroxine Sodium (Synthroid) 75 mcg DAILY@0630 ORAL 04/08/20 06:30 05/07/20 06:29 04/10/20 06:34 Lorazepam (Ativan) 1 mg Q6H PRN ORAL For Anxiety 04/06/20 14:30 04/13/20 14:29 Midodrine (Pro-Amatine) 2.5 mg THREE TIMES A DAY ORAL 04/09/20 13:00 07/08/20 12:59 04/09/20 17:01 Morphine Sulfate (Morphine Sulfate) 1 mg Q6H PRN IVP For Pain 04/05/20 15:30 04/12/20 15:29 Nitroglycerin (Ntg) 0.4 mg Q5M X 3 DOSES PRN SL Prn Chest Pain 04/05/20 15:30 05/05/20 15:29 Olanzapine (ZyPREXA) 5 mg BID ORAL 04/06/20 18:00 05/21/20 17:59 04/09/20 17:01 Ondansetron HCl (Zofran) 4 mg Q6H PRN IVP Nausea & Vomiting 04/05/20 15:30 05/05/20 15:29 Pantoprazole (Protonix) 40 mg Q12HR ORAL 04/06/20 21:00 05/06/20 08:59 04/09/20 20:53 Quetiapine Fumarate (SEROqueL) 200 mg QHS ORAL 04/06/20 21:00 05/21/20 20:59 04/09/20 20:53 Zolpidem Tartrate (Ambien) 5 mg HSPRN PRN ORAL Insomnia 04/05/20 15:30 04/12/20 15:29 Kari Chacon M.D. April 10, 2020 09:43
--- NOTE | 2020-04-10 09:50 | Nephrology Progress Note ---
Assessment/Plan Problem List: (1) Hypercalcemia (2) Renal failure (ARF), acute on chronic (3) Seizure (4) UTI (urinary tract infection) (5) Blind (6) Suspected COVID-19 virus infection (7) Dehydration (8) Symptomatic anemia (9) Anemia Assessment Renal failure most likely acute Underlying chronic kidney disease History of diabetes mellitus, but hemoglobin A1c is 5.7 Severe anemia Hypercalcemia Leukocytosis, UTI Seizure disorder Patient blind Has history of psych disease custodial resident Plan April 10: Serum creatinine lowering with hydration Hypercalcemia persists, will start nasal calcitonin spray Waiting for serum protein electrophoresis results Will continue to monitor renal parameters and serum calcium and phosphorus April 09: Kidney ultrasound is not done until we have 2- COVID-19 tests Meanwhile the patient has hypercalcemia, anemia, renal failure so is suspicious for multiple myeloma We will give Aredia 60 mg 1 time today Will order urine and serum protein electrophoresis Continue per consultants Previously First COVID 19 test negative x1 Kidney ultrasound ordered still pending Discussed with RN Patient needs IV hydration, D5W 150 cc an hour ordered RN reports that the patient refuses IV fluid and also refuses medication at times Continue antibiotics Monitor renal parameters Urine studies, if urine specimen can be obtained Subjective ROS Limited/Unobtainable: No Constitutional: Reports: malaise Objective Objective Last 24 Hour Vital Signs Date Time Temp Pulse Resp B/P (MAP) Pulse Ox O2 Delivery O2 Flow Rate FiO2 04/10/20 04:00 97.4 57 19 105/55 (72) 96 04/10/20 00:00 98.7 55 19 94/52 (66) 96 04/09/20 21:00 Room Air 04/09/20 20:00 98.2 50 19 103/51 (68) 98 04/09/20 16:00 98.6 71 19 110/64 (79) 97 04/09/20 12:00 98.8 65 18 107/60 (76) 97 Intake and Output 04/09/20 04/10/20 19:00 07:00 Intake Total 2350.0 ml 1105 ml Balance 2350.0 ml 1105 ml Intake Oral 600 ml IV Total 1750.0 ml 1105 ml # Voids 2 2 Laboratory Tests 04/09/20 12:10: Total Protein (PEP) [Pending], Albumin (PEP) [Pending], Globulin (PEP) [Pending] , Albumin/Globulin Ratio [Pending], [id number] [Pending], Alpha-2- Globulins [Pending], Beta Globulins [Pending], Beta Gamma Globulin [Pending], PEP Abnormal Protein Bands [Pending], Protein Electrophoresis Interpret [Pending ] 04/10/20 08:05: Albumin/Globulin Ratio 0.3L, White Blood Count 16.5H, Red Blood Count 2.80L, Hemoglobin 8.4L, Hematocrit 26.2L, Mean Corpuscular Volume 93, Mean Corpuscular Hemoglobin 30.0, Mean Corpuscular Hemoglobin Concent 32.2, Red Cell Distribution Width 15.8H, Platelet Count 343, Mean Platelet Volume 4.5L, Neutrophils (%) (Auto) , Lymphocytes (%) (Auto) , Monocytes (%) (Auto) , Eosinophils (%) (Auto) , Basophils (%) (Auto) , Neutrophils % (Manual) [Pending] , Lymphocytes % (Manual) [Pending], Platelet Estimate [Pending], Platelet Morphology [Pending], Sodium Level 142, Potassium Level 4.0, Chloride Level 110H , Carbon Dioxide Level 18L, Anion Gap 14, Blood Urea Nitrogen 56H, Creatinine 2.7H, Estimat Glomerular Filtration Rate 18.5, Glucose Level 99, Uric Acid 10.9H , Calcium Level 11.0H, Phosphorus Level 3.8, Magnesium Level 2.2, Total Bilirubin 0.2, Aspartate Amino Transf (AST/SGOT) 24, Alanine Aminotransferase ( ALT/SGPT) 11L, Alkaline Phosphatase 73, Total Protein 7.7, Albumin 1.9L, Globulin 5.8 Height (Feet): 5 Height (Inches): 5.00 Weight (Pounds): 150 General Appearance: no apparent distress Cardiovascular: normal rate Respiratory/Chest: decreased breath sounds Abdomen: soft Objective No change Sohan Lane MD April 10, 2020 09:49
--- NOTE | 2020-04-10 12:11 | Pulmonology Progress Note ---
Subjective ROS Limited/Unobtainable: No Interval Events: None new Constitutional: Reports: no symptoms HEENT: Repors: no symptoms Respiratory: Reports: no symptoms Cardiovascular: Reports: no symptoms Gastrointestinal/Abdominal: Reports: no symptoms Allergies: Coded Allergies: No Known Allergies (Unverified , 10/09/18) All Systems: reviewed and negative except above Objective Last 24 Hour Vital Signs Date Time Temp Pulse Resp B/P (MAP) Pulse Ox O2 Delivery O2 Flow Rate FiO2 04/10/20 09:00 Room Air 04/10/20 08:00 98.3 51 18 96/59 (71) 96 04/10/20 04:00 97.4 57 19 105/55 (72) 96 04/10/20 00:00 98.7 55 19 94/52 (66) 96 04/09/20 21:00 Room Air 04/09/20 20:00 98.2 50 19 103/51 (68) 98 04/09/20 16:00 98.6 71 19 110/64 (79) 97 Intake and Output 04/09/20 04/10/20 19:00 07:00 Intake Total 2350.0 ml 1105 ml Balance 2350.0 ml 1105 ml Intake Oral 600 ml IV Total 1750.0 ml 1105 ml # Voids 2 2 General Appearance: no acute distress HEENT: normocephalic Respiratory/Chest: chest wall non-tender, lungs clear Cardiovascular: normal peripheral pulses, normal rate Abdomen: normal bowel sounds Microbiology Date/Time Source Procedure Growth Status 04/08/20 06:50 Nasopharynx Coronavirus COVID-19 PCR ([facility]) - Final Complete Laboratory Tests 04/10/20 08:05: White Blood Count 16.5H, Red Blood Count 2.80L, Hemoglobin 8.4L, Hematocrit 26.2L, Mean Corpuscular Volume 93, Mean Corpuscular Hemoglobin 30.0, Mean Corpuscular Hemoglobin Concent 32.2, Red Cell Distribution Width 15.8H, Platelet Count 343, Mean Platelet Volume 4.5L, Neutrophils (%) (Auto) , Lymphocytes (%) (Auto) , Monocytes (%) (Auto) , Eosinophils (%) (Auto) , Basophils (%) (Auto) , Differential Total Cells Counted 100, Neutrophils % ( Manual) 45, Lymphocytes % (Manual) 20, Monocytes % (Manual) 6, Eosinophils % ( Manual) 3, Basophils % (Manual) 0, Metamyelocytes % 3H, Myelocytes % 13H, Band Neutrophils 10H, Platelet Estimate Adequate, Platelet Morphology Normal, Red Blood Cell Morphology Normal, Sodium Level 142, Potassium Level 4.0, Chloride Level 110H, Carbon Dioxide Level 18L, Anion Gap 14, Blood Urea Nitrogen 56H, Creatinine 2.7H, Estimat Glomerular Filtration Rate 18.5, Glucose Level 99, Uric Acid 10.9H, Calcium Level 11.0H, Phosphorus Level 3.8, Magnesium Level 2.2 , Total Bilirubin 0.2, Aspartate Amino Transf (AST/SGOT) 24, Alanine Aminotransferase (ALT/SGPT) 11L, Alkaline Phosphatase 73, Total Protein 7.7, Albumin 1.9L, Globulin 5.8, Albumin/Globulin Ratio 0.3L Current Medications Medications (Trade) Dose Ordered Sig/Alix Route PRN Reason Start Time Stop Time Status Last Admin Dose Admin Acetaminophen (Tylenol) 650 mg Q4H PRN ORAL Mild Pain (Pain Scale 1-3) 04/05/20 15:30 05/05/20 15:29 04/10/20 01:14 Bisacodyl (Dulcolax) 10 mg DAILYPRN PRN RECTAL Constipation 04/05/20 16:30 07/04/20 16:29 Calcitonin [place] (Miacalcin) 1 sprays DAILY NASAL 04/10/20 11:00 07/09/20 10:59 Ceftriaxone Sodium 1 gm/ Dextrose 55 ml @ 110 mls/hr Q24H IVPB 04/08/20 16:00 04/15/20 15:59 04/09/20 20:50 Citalopram Hydrobromide (CeleXA) 20 mg DAILY ORAL 04/07/20 09:00 05/07/20 08:59 04/10/20 09:12 Dextrose 1,000 ml @ 150 mls/hr Q6H40M IV 04/07/20 12:45 05/07/20 12:44 04/10/20 06:35 Dextrose (Dextrose 50%) 25 ml Q30M PRN IV Hypoglycemia 04/05/20 15:30 07/04/20 15:29 Dextrose (Dextrose 50%) 50 ml Q30M PRN IV Hypoglycemia 04/05/20 15:30 07/04/20 15:29 Diphenhydramine HCl (Benadryl) 25 mg Q6H PRN ORAL Itching/Pruritis 04/05/20 15:30 05/05/20 15:29 Divalproex Sodium (Depakote ER) 500 mg EVERY 12 HOURS ORAL 04/06/20 21:00 05/06/20 20:59 04/10/20 09:12 Docusate Sodium (Colace) 100 mg TID ORAL 04/06/20 13:00 05/05/20 20:59 04/10/20 09:12 Epoetin Enrique (Epoetin Enrique-EPBX(NON ESRD)) 4,000 unit THU-THU-THU SUBQ 04/09/20 21:00 07/08/20 20:59 04/09/20 20:49 Folic Acid (Folate) 2 mg DAILY ORAL 04/10/20 09:00 05/09/20 08:59 04/10/20 09:12 Heparin Sodium (Porcine) (Heparin 5000 units/ml) 5,000 units EVERY 12 HOURS SUBQ 04/05/20 21:00 05/20/20 20:59 04/10/20 09:14 Levothyroxine Sodium (Synthroid) 75 mcg DAILY@0630 ORAL 04/08/20 06:30 05/07/20 06:29 04/10/20 06:34 Lorazepam (Ativan) 1 mg Q6H PRN ORAL For Anxiety 04/06/20 14:30 04/13/20 14:29 Midodrine (Pro-Amatine) 2.5 mg THREE TIMES A DAY ORAL 04/09/20 13:00 07/08/20 12:59 04/10/20 09:12 Morphine Sulfate (Morphine Sulfate) 1 mg Q6H PRN IVP For Pain 04/05/20 15:30 04/12/20 15:29 Nitroglycerin (Ntg) 0.4 mg Q5M X 3 DOSES PRN SL Prn Chest Pain 04/05/20 15:30 05/05/20 15:29 Olanzapine (ZyPREXA) 5 mg BID ORAL 04/06/20 18:00 05/21/20 17:59 04/10/20 09:13 Ondansetron HCl (Zofran) 4 mg Q6H PRN IVP Nausea & Vomiting 04/05/20 15:30 05/05/20 15:29 Pantoprazole (Protonix) 40 mg Q12HR ORAL 04/06/20 21:00 05/06/20 08:59 04/10/20 09:12 Quetiapine Fumarate (SEROqueL) 200 mg QHS ORAL 04/06/20 21:00 05/21/20 20:59 04/09/20 20:53 Zolpidem Tartrate (Ambien) 5 mg HSPRN PRN ORAL Insomnia 04/05/20 15:30 04/12/20 15:29 Assessment/Plan Assessment/Plan IMPRESSION: 1. Leukocytosis. 2. Anemia. 3. CKD. 4. Seizure disorder. 5. COPD. 6. halfway resident. DISCUSSION: Seen by ID; continue empiric antibiotics. Changes reviewed per ID Continue medications. I will follow. Respiratory status is stable Reynaldo Velazco Omar Syed MD April 10, 2020 12:11
--- NOTE | 2020-04-10 12:42 | Diagnostic Imaging Report ---
Indication: Cough Technique: One view of the chest Comparison: none Findings: There inspiration currently. Previously dense created left-sided hazy parenchymal opacities are no longer evident. The heart size is normal. Impression: No acute process
--- NOTE | 2020-04-10 13:12 | General Progress Note ---
Assessment/Plan Problem List: (1) CKD (chronic kidney disease) ICD Codes: N18.9 - Chronic kidney disease, unspecified SNOMED: 510419277 (2) Diabetes ICD Codes: E11.9 - Type 2 diabetes mellitus without complications SNOMED: 19578076 (3) COPD (chronic obstructive pulmonary disease) ICD Codes: J44.9 - Chronic obstructive pulmonary disease, unspecified SNOMED: 37113300 (4) Seizure ICD Codes: R56.9 - Unspecified convulsions SNOMED: 57494024 (5) GERD (gastroesophageal reflux disease) ICD Codes: K21.9 - Gastro-esophageal reflux disease without esophagitis SNOMED: 144231625 (6) Blind ICD Codes: H54.7 - Unspecified visual loss SNOMED: 871537412 (7) Behavioral change ICD Codes: R46.89 - Other symptoms and signs involving appearance and behavior SNOMED: 294541441 (8) UTI (urinary tract infection) ICD Codes: N39.0 - Urinary tract infection, site not specified SNOMED: 32483546 Qualifiers: Qualified Codes: N30.01 - Acute cystitis with hematuria (9) Fever ICD Codes: R50.9 - Fever, unspecified SNOMED: 728829813 Qualifiers: Qualified Codes: R50.9 - Fever, unspecified (10) Symptomatic anemia ICD Codes: D64.9 - Anemia, unspecified SNOMED: 482572531 (11) Suspected COVID-19 virus infection ICD Codes: Z20.828 - Contact with and (suspected) exposure to other viral communicable diseases SNOMED: 467666957 Status: unchanged Assessment/Plan: pt diet abx cbc bmp am aru eval Subjective Constitutional: Reports: weakness Allergies: Coded Allergies: No Known Allergies (Unverified , 10/09/18) All Systems: reviewed and negative except above Subjective sleepy calm Objective Last 24 Hour Vital Signs Date Time Temp Pulse Resp B/P (MAP) Pulse Ox O2 Delivery O2 Flow Rate FiO2 04/10/20 09:00 Room Air 04/10/20 08:00 98.3 51 18 96/59 (71) 96 04/10/20 04:00 97.4 57 19 105/55 (72) 96 04/10/20 00:00 98.7 55 19 94/52 (66) 96 04/09/20 21:00 Room Air 04/09/20 20:00 98.2 50 19 103/51 (68) 98 04/09/20 16:00 98.6 71 19 110/64 (79) 97 Intake and Output 04/09/20 04/10/20 19:00 07:00 Intake Total 2350.0 ml 1105 ml Balance 2350.0 ml 1105 ml Intake Oral 600 ml IV Total 1750.0 ml 1105 ml # Voids 2 2 Laboratory Tests 04/10/20 08:05: White Blood Count 16.5H, Red Blood Count 2.80L, Hemoglobin 8.4L, Hematocrit 26.2L, Mean Corpuscular Volume 93, Mean Corpuscular Hemoglobin 30.0, Mean Corpuscular Hemoglobin Concent 32.2, Red Cell Distribution Width 15.8H, Platelet Count 343, Mean Platelet Volume 4.5L, Neutrophils (%) (Auto) , Lymphocytes (%) (Auto) , Monocytes (%) (Auto) , Eosinophils (%) (Auto) , Basophils (%) (Auto) , Differential Total Cells Counted 100, Neutrophils % ( Manual) 45, Lymphocytes % (Manual) 20, Monocytes % (Manual) 6, Eosinophils % ( Manual) 3, Basophils % (Manual) 0, Metamyelocytes % 3H, Myelocytes % 13H, Band Neutrophils 10H, Platelet Estimate Adequate, Platelet Morphology Normal, Red Blood Cell Morphology Normal, Sodium Level 142, Potassium Level 4.0, Chloride Level 110H, Carbon Dioxide Level 18L, Anion Gap 14, Blood Urea Nitrogen 56H, Creatinine 2.7H, Estimat Glomerular Filtration Rate 18.5, Glucose Level 99, Uric Acid 10.9H, Calcium Level 11.0H, Phosphorus Level 3.8, Magnesium Level 2.2 , Total Bilirubin 0.2, Aspartate Amino Transf (AST/SGOT) 24, Alanine Aminotransferase (ALT/SGPT) 11L, Alkaline Phosphatase 73, Total Protein 7.7, Albumin 1.9L, Globulin 5.8, Albumin/Globulin Ratio 0.3L Height (Feet): 5 Height (Inches): 5.00 Weight (Pounds): 150 General Appearance: lethargic EENT: normal ENT inspection Neck: normal alignment Cardiovascular: normal rate, regular rhythm Respiratory/Chest: no respiratory distress, no accessory muscle use Extremities: normal inspection Skin: normal pigmentation Hurtado,Soto Rick DO April 10, 2020 13:12
--- NOTE | 2020-04-10 14:22 | Diagnostic Imaging Report ---
Indication: Acute renal failure, abnormal renal function tests Technique: Grayscale and duplex images of the kidneys, retroperitoneum, and bladder were obtained. Comparison: none Findings: Right kidney measures 11.6 cm in length. Left kidney measures 9.7 cm in length. Both kidneys demonstrate normal echogenicity. There is mild bilateral hydronephrosis. However, bilateral ureteral jets are demonstrated within the bladder. There is a right renal lower pole parapelvic cyst and a lower pole cortical cyst. Speckled opacities are seen in the renal parenchyma bilaterally. Normal inferior vena cava. Bladder is normal. Impression: Mild bilateral hydronephrosis. Significance of this is uncertain as ureteral jets are seen in the bladder bilaterally. Speckled opacities in the bilateral renal parenchyma, could indicate parenchymal calcifications. Right renal cortical and parapelvic cysts
[2020-04-10] MEDS: cefTRIAXone 1gm/D5W 55ml IVPB SCH ×2 (15:53)
--- NOTE | 2020-04-10 17:14 | Progress Note ---
DATE: 04/10/2020 SUBJECTIVE: This is a 54-year-old female patient. She has anemia, visually impaired. She is confused, disorganized, mood labile that is why her attending has requested daily psychiatric consultation. MENTAL STATUS EXAMINATION: This is a 54-year-old female. Her appearance is disheveled. Attitude, irritable and agitated. Affect, guarded and restricted. Intellect poor. Mood, depressed and anxious. Motor activity, psychomotor agitation. Attention span is poor. Orientation x2. Speech is low volume and slurred. Thought process, disorganized and illogical. Insight and judgment is poor. DIAGNOSIS: Schizoaffective, bipolar type. PLAN: Continue treatment with psychotropic medications to stabilize her mood. A 20-minutes of cognitive behavioral therapy to help her identify automatic negative thoughts and help her convert negative thoughts to more positive thoughts to reduce depression, anxiety, mood lability. Chart reviewed and discussed with staff. Seen and assessed at bedside. Pamela Maldonado M.D. DR: Richard JOB#: [id number] CC:
[2020-04-10] MEDS: QUEtiapine 200mg tab ORAL SCH (21:36)
[2020-04-10] MEDS: Zolpidem 5mg tab ORAL PRN (22:48)
[2020-04-11] VITALS: BP 99/54
[2020-04-11] MEDS: LORazepam 1mg tab ORAL PRN (01:05)
[2020-04-11 04:00] VITALS: BP 107/57
[2020-04-11 07:16] LABS: HEMATOCRIT 23.5 % (37.0-47.0); HEMOGLOBIN 7.8 G/DL (12.0-16.0); MEAN CORPUSCULAR VOLUME 92 FL (80-99); PLATELET COUNT 355 K/UL (150-450); RED BLOOD COUNT 2.56 M/UL (4.20-5.40); RED CELL DISTRIBUTION WIDTH 15.5 % (11.6-14.8); WHITE BLOOD COUNT 14.8 K/UL (4.8-10.8)
[2020-04-11 07:22] LABS: ALANINE AMINOTRANSFERASE 16 U/L (12-78); ALBUMIN 1.8 G/DL (3.4-5.0); ALBUMIN/GLOBULIN RATIO 0.3 (1.0-2.7); ALKALINE PHOSPHATASE 65 U/L (46-116); ANION GAP 12 mmol/L (5-15); ASPARTATE AMINO TRANSFERASE 23 U/L (15-37); BILIRUBIN,TOTAL 0.1 MG/DL (0.2-1.0); BLOOD UREA NITROGEN 54 mg/dL (7-18); CALCIUM 9.8 MG/DL (8.5-10.1); CARBON DIOXIDE 20 MMOL/L (21-32); CHLORIDE 111 MMOL/L (98-107); PHOSPHORUS 3.9 MG/DL (2.5-4.9); POTASSIUM 3.9 MMOL/L (3.5-5.1); SODIUM 143 MMOL/L (136-145)
[2020-04-11 08:00] VITALS: BP 94/63
--- NOTE | 2020-04-11 09:01 | General Progress Note ---
Assessment/Plan Problem List: (1) CKD (chronic kidney disease) ICD Codes: N18.9 - Chronic kidney disease, unspecified SNOMED: 364161511 (2) Diabetes ICD Codes: E11.9 - Type 2 diabetes mellitus without complications SNOMED: 96213028 (3) COPD (chronic obstructive pulmonary disease) ICD Codes: J44.9 - Chronic obstructive pulmonary disease, unspecified SNOMED: 28773945 (4) Seizure ICD Codes: R56.9 - Unspecified convulsions SNOMED: 57879613 (5) GERD (gastroesophageal reflux disease) ICD Codes: K21.9 - Gastro-esophageal reflux disease without esophagitis SNOMED: 218405447 (6) Blind ICD Codes: H54.7 - Unspecified visual loss SNOMED: 970939649 (7) Behavioral change ICD Codes: R46.89 - Other symptoms and signs involving appearance and behavior SNOMED: 682671542 (8) UTI (urinary tract infection) ICD Codes: N39.0 - Urinary tract infection, site not specified SNOMED: 25682847 Qualifiers: Qualified Codes: N30.01 - Acute cystitis with hematuria (9) Fever ICD Codes: R50.9 - Fever, unspecified SNOMED: 416910064 Qualifiers: Qualified Codes: R50.9 - Fever, unspecified (10) Symptomatic anemia ICD Codes: D64.9 - Anemia, unspecified SNOMED: 021352859 (11) Suspected COVID-19 virus infection ICD Codes: Z20.828 - Contact with and (suspected) exposure to other viral communicable diseases SNOMED: 154298783 Status: unchanged Assessment/Plan: pt diet abx cbc bmp am aru eval Subjective Constitutional: Reports: weakness Allergies: Coded Allergies: No Known Allergies (Unverified , 10/09/18) All Systems: reviewed and negative except above Subjective sleepy calm Objective Last 24 Hour Vital Signs Date Time Temp Pulse Resp B/P (MAP) Pulse Ox O2 Delivery O2 Flow Rate FiO2 04/11/20 04:00 98.0 53 18 107/57 (74) 96 04/11/20 00:00 97.8 52 18 99/54 (69) 96 04/10/20 21:16 97.0 53 18 106/47 (66) 97 04/10/20 21:00 Room Air 04/10/20 20:00 97.0 50 18 86/55 (65) 97 04/10/20 16:00 98.1 76 17 110/63 (79) 97 04/10/20 12:00 98.9 79 18 101/61 (74) 98 Intake and Output 04/10/20 04/11/20 19:00 07:00 Intake Total 750 ml 850 ml Balance 750 ml 850 ml Intake Oral 250 ml IV Total 150 ml 600 ml Other 600 ml # Voids 3 Laboratory Tests 04/11/20 04:00: Sodium Level 143, Potassium Level 3.9, Chloride Level 111H, Carbon Dioxide Level 20L, Anion Gap 12, Blood Urea Nitrogen 54H, Creatinine 3.0H, Estimat Glomerular Filtration Rate 16.4, Glucose Level 78, Calcium Level 9.8, Phosphorus Level 3.9, Magnesium Level 2.0, Total Bilirubin 0.1L, Aspartate Amino Transf (AST/SGOT) 23, Alanine Aminotransferase (ALT/SGPT) 16, Alkaline Phosphatase 65, Total Protein 7.1, Albumin 1.8L, Globulin 5.3, Albumin/Globulin Ratio 0.3L 04/11/20 05:20: White Blood Count 14.8H, Red Blood Count 2.56L, Hemoglobin 7.8L, Hematocrit 23.5L, Mean Corpuscular Volume 92, Mean Corpuscular Hemoglobin 30.6, Mean Corpuscular Hemoglobin Concent 33.3, Red Cell Distribution Width 15.5H, Platelet Count 355, Mean Platelet Volume 4.6L, Neutrophils (%) (Auto) , Lymphocytes (%) (Auto) , Monocytes (%) (Auto) , Eosinophils (%) (Auto) , Basophils (%) (Auto) , Differential Total Cells Counted 100, Neutrophils % ( Manual) 61, Lymphocytes % (Manual) 19L, Monocytes % (Manual) 9, Eosinophils % ( Manual) 3, Basophils % (Manual) 1, Metamyelocytes % 4H, Myelocytes % 1H, Band Neutrophils 2, Platelet Estimate Adequate, Platelet Morphology Normal, Hypochromasia 3+, Anisocytosis 1+, Spherocytes 1+ Height (Feet): 5 Height (Inches): 5.00 Weight (Pounds): 194 General Appearance: lethargic EENT: normal ENT inspection Neck: normal alignment Cardiovascular: normal rate, regular rhythm Respiratory/Chest: no respiratory distress, no accessory muscle use Extremities: normal inspection Skin: normal pigmentation Soto Hurtado DO April 11, 2020 09:01
[2020-04-11] MEDS: Docusate 100mg cap ORAL SCH ×3 (09:02→18:08)
[2020-04-11] MEDS: Depakote ER 500mg tab ORAL SCH ×2 (09:02→21:07)
[2020-04-11] MEDS: Tamsulosin 0.4mg cap ORAL SCH (09:02)
[2020-04-11] MEDS: Citalopram Hydrobromide 10mg Tab ORAL SCH (09:03)
[2020-04-11] MEDS: Heparin 5000 units/ml inj SUBQ SCH ×2 (09:05→21:04)
--- NOTE | 2020-04-11 10:43 | Pulmonology Progress Note ---
Subjective ROS Limited/Unobtainable: No Interval Events: None new Constitutional: Reports: no symptoms HEENT: Repors: no symptoms Respiratory: Reports: no symptoms Cardiovascular: Reports: no symptoms Gastrointestinal/Abdominal: Reports: no symptoms Allergies: Coded Allergies: No Known Allergies (Unverified , 10/09/18) All Systems: reviewed and negative except above Objective Last 24 Hour Vital Signs Date Time Temp Pulse Resp B/P (MAP) Pulse Ox O2 Delivery O2 Flow Rate FiO2 04/11/20 09:00 Room Air 04/11/20 08:00 97.2 69 18 94/63 (73) 97 04/11/20 04:00 98.0 53 18 107/57 (74) 96 04/11/20 00:00 97.8 52 18 99/54 (69) 96 04/10/20 21:16 97.0 53 18 106/47 (66) 97 04/10/20 21:00 Room Air 04/10/20 20:00 97.0 50 18 86/55 (65) 97 04/10/20 16:00 98.1 76 17 110/63 (79) 97 04/10/20 12:00 98.9 79 18 101/61 (74) 98 Intake and Output 04/10/20 04/11/20 19:00 07:00 Intake Total 750 ml 850 ml Balance 750 ml 850 ml Intake Oral 250 ml IV Total 150 ml 600 ml Other 600 ml # Voids 3 General Appearance: no acute distress HEENT: normocephalic Respiratory/Chest: chest wall non-tender, lungs clear Cardiovascular: normal peripheral pulses, normal rate Abdomen: normal bowel sounds Laboratory Tests 04/11/20 04:00: Sodium Level 143, Potassium Level 3.9, Chloride Level 111H, Carbon Dioxide Level 20L, Anion Gap 12, Blood Urea Nitrogen 54H, Creatinine 3.0H, Estimat Glomerular Filtration Rate 16.4, Glucose Level 78, Calcium Level 9.8, Phosphorus Level 3.9, Magnesium Level 2.0, Total Bilirubin 0.1L, Aspartate Amino Transf (AST/SGOT) 23, Alanine Aminotransferase (ALT/SGPT) 16, Alkaline Phosphatase 65, Total Protein 7.1, Albumin 1.8L, Globulin 5.3, Albumin/Globulin Ratio 0.3L 04/11/20 05:20: White Blood Count 14.8H, Red Blood Count 2.56L, Hemoglobin 7.8L, Hematocrit 23.5L, Mean Corpuscular Volume 92, Mean Corpuscular Hemoglobin 30.6, Mean Corpuscular Hemoglobin Concent 33.3, Red Cell Distribution Width 15.5H, Platelet Count 355, Mean Platelet Volume 4.6L, Neutrophils (%) (Auto) , Lymphocytes (%) (Auto) , Monocytes (%) (Auto) , Eosinophils (%) (Auto) , Basophils (%) (Auto) , Differential Total Cells Counted 100, Neutrophils % ( Manual) 61, Lymphocytes % (Manual) 19L, Monocytes % (Manual) 9, Eosinophils % ( Manual) 3, Basophils % (Manual) 1, Metamyelocytes % 4H, Myelocytes % 1H, Band Neutrophils 2, Platelet Estimate Adequate, Platelet Morphology Normal, Hypochromasia 3+, Anisocytosis 1+, Spherocytes 1+ Current Medications Medications (Trade) Dose Ordered Sig/Alix Route PRN Reason Start Time Stop Time Status Last Admin Dose Admin Acetaminophen (Tylenol) 650 mg Q4H PRN ORAL Mild Pain (Pain Scale 1-3) 04/05/20 15:30 05/05/20 15:29 04/10/20 01:14 Bisacodyl (Dulcolax) 10 mg DAILYPRN PRN RECTAL Constipation 04/05/20 16:30 07/04/20 16:29 Calcitonin [place] (Miacalcin) 1 sprays DAILY NASAL 04/10/20 11:00 07/09/20 10:59 04/11/20 09:04 Ceftriaxone Sodium 1 gm/ Dextrose 55 ml @ 110 mls/hr Q24H IVPB 04/08/20 16:00 04/15/20 15:59 04/10/20 15:53 Citalopram Hydrobromide (CeleXA) 20 mg DAILY ORAL 04/07/20 09:00 05/07/20 08:59 04/11/20 09:03 Dextrose 1,000 ml @ 150 mls/hr Q6H40M IV 04/07/20 12:45 05/07/20 12:44 04/11/20 09:04 Dextrose (Dextrose 50%) 25 ml Q30M PRN IV Hypoglycemia 04/05/20 15:30 07/04/20 15:29 Dextrose (Dextrose 50%) 50 ml Q30M PRN IV Hypoglycemia 04/05/20 15:30 07/04/20 15:29 Diphenhydramine HCl (Benadryl) 25 mg Q6H PRN ORAL Itching/Pruritis 04/05/20 15:30 05/05/20 15:29 Divalproex Sodium (Depakote ER) 500 mg EVERY 12 HOURS ORAL 04/06/20 21:00 05/06/20 20:59 04/11/20 09:02 Docusate Sodium (Colace) 100 mg TID ORAL 04/06/20 13:00 05/05/20 20:59 04/11/20 09:02 Epoetin Enrique (Epoetin Enrique-EPBX(NON ESRD)) 4,000 unit THU-THU-THU SUBQ 04/09/20 21:00 07/08/20 20:59 04/09/20 20:49 Folic Acid (Folate) 2 mg DAILY ORAL 04/10/20 09:00 05/09/20 08:59 04/11/20 09:02 Heparin Sodium (Porcine) (Heparin 5000 units/ml) 5,000 units EVERY 12 HOURS SUBQ 04/05/20 21:00 05/20/20 20:59 04/11/20 09:05 Levothyroxine Sodium (Synthroid) 75 mcg DAILY@0630 ORAL 04/08/20 06:30 05/07/20 06:29 04/11/20 06:17 Lorazepam (Ativan) 1 mg Q6H PRN ORAL For Anxiety 04/06/20 14:30 04/13/20 14:29 04/11/20 01:05 Midodrine (Pro-Amatine) 10 mg THREE TIMES A DAY ORAL 04/11/20 09:00 07/08/20 12:59 04/11/20 09:03 Morphine Sulfate (Morphine Sulfate) 1 mg Q6H PRN IVP For Pain 04/05/20 15:30 04/12/20 15:29 Nitroglycerin (Ntg) 0.4 mg Q5M X 3 DOSES PRN SL Prn Chest Pain 04/05/20 15:30 05/05/20 15:29 Olanzapine (ZyPREXA) 5 mg BID ORAL 04/06/20 18:00 05/21/20 17:59 04/11/20 09:02 Ondansetron HCl (Zofran) 4 mg Q6H PRN IVP Nausea & Vomiting 04/05/20 15:30 05/05/20 15:29 Pantoprazole (Protonix) 40 mg Q12HR ORAL 04/06/20 21:00 05/06/20 08:59 04/11/20 09:02 Quetiapine Fumarate (SEROqueL) 200 mg QHS ORAL 04/06/20 21:00 05/21/20 20:59 04/10/20 21:36 Tamsulosin HCl (Flomax) 0.4 mg DAILY ORAL 04/11/20 09:00 05/11/20 08:59 04/11/20 09:02 Zolpidem Tartrate (Ambien) 5 mg HSPRN PRN ORAL Insomnia 04/05/20 15:30 04/12/20 15:29 04/10/20 22:48 Assessment/Plan Assessment/Plan IMPRESSION: 1. Leukocytosis. 2. Anemia. 3. CKD. 4. Seizure disorder. 5. COPD. 6. senior living resident. DISCUSSION: Seen by ID; continue empiric antibiotics. Changes reviewed per ID Continue medications. I will follow. Respiratory status is stable Reynaldo Velazco Omar Syed MD April 11, 2020 10:43
--- NOTE | 2020-04-11 10:57 | Hematology/Onc Progress Note ---
Assessment/Plan Assessment/Plan Assessment and Recs # Anemia of chronic disease due to underlying chronic medical issues, multifactorial v Gi bleed --> Anemia workup has been ordered, rule out gi bleed --> No evidence of hemolysis is noted, peripheral smear has been reviewed. --> Hgb goal >7. Transfuse prn. --> Epogen started --> Medications have been reviewed --> low threshold for gi evaluation in case has occult + --> bone marrow biopsy is not indicated given the other more likely causes --> hgb trend 8.2-->8.1-->8.4-->7.8 --> no hemolysis is noted # Leukocytosis r/o covid, pna --> on abx as per id --> on uti ctx rx->levo-->cftx --> wbc trend: 14.8 # UTI (urinary tract infection) --> on abx ---> as per id # Gerd --> on ppi # Dehydration --> per renal # Dvt ppx --> heparin sq The timing of this note does not necessarily reflect the time of the patient was seen. Greatly appreciate consultation. Subjective Allergies: Coded Allergies: No Known Allergies (Unverified , 10/09/18) Subjective 04/08 no bleeding, hgb 10.1 wbc is higher, no bleeidng 04/09 for transfusion, awaiting consent from family members, no bleeding 04/10 no transfusion, repeat hgb 8.4, on cftx, no sob 04/11 awake and alert, hgb 7.8, no new orders, room air Objective Objective Current Medications Medications (Trade) Dose Ordered Sig/Alix Route PRN Reason Start Time Stop Time Status Last Admin Dose Admin Acetaminophen (Tylenol) 650 mg Q4H PRN ORAL Mild Pain (Pain Scale 1-3) 04/05/20 15:30 05/05/20 15:29 04/10/20 01:14 Bisacodyl (Dulcolax) 10 mg DAILYPRN PRN RECTAL Constipation 04/05/20 16:30 07/04/20 16:29 Calcitonin Clifford (Miacalcin) 1 sprays DAILY NASAL 04/10/20 11:00 07/09/20 10:59 04/11/20 09:04 Ceftriaxone Sodium 1 gm/ Dextrose 55 ml @ 110 mls/hr Q24H IVPB 5/10/20 16:00 04/15/20 15:59 04/10/20 15:53 Citalopram Hydrobromide (CeleXA) 20 mg DAILY ORAL 04/07/20 09:00 05/07/20 08:59 04/11/20 09:03 Dextrose 1,000 ml @ 150 mls/hr Q6H40M IV 04/07/20 12:45 05/07/20 12:44 04/11/20 09:04 Dextrose (Dextrose 50%) 25 ml Q30M PRN IV Hypoglycemia 04/05/20 15:30 07/04/20 15:29 Dextrose (Dextrose 50%) 50 ml Q30M PRN IV Hypoglycemia 04/05/20 15:30 07/04/20 15:29 Diphenhydramine HCl (Benadryl) 25 mg Q6H PRN ORAL Itching/Pruritis 04/05/20 15:30 05/05/20 15:29 Divalproex Sodium (Depakote ER) 500 mg EVERY 12 HOURS ORAL 04/06/20 21:00 05/06/20 20:59 04/11/20 09:02 Docusate Sodium (Colace) 100 mg TID ORAL 04/06/20 13:00 05/05/20 20:59 04/11/20 09:02 Epoetin Enrique (Epoetin Enrique-EPBX(NON ESRD)) 4,000 unit THU-THU-THU SUBQ 04/09/20 21:00 07/08/20 20:59 04/09/20 20:49 Folic Acid (Folate) 2 mg DAILY ORAL 04/10/20 09:00 05/09/20 08:59 04/11/20 09:02 Heparin Sodium (Porcine) (Heparin 5000 units/ml) 5,000 units EVERY 12 HOURS SUBQ 04/05/20 21:00 05/20/20 20:59 04/11/20 09:05 Levothyroxine Sodium (Synthroid) 75 mcg DAILY@0630 ORAL 04/08/20 06:30 05/07/20 06:29 04/11/20 06:17 Lorazepam (Ativan) 1 mg Q6H PRN ORAL For Anxiety 04/06/20 14:30 04/13/20 14:29 04/11/20 01:05 Midodrine (Pro-Amatine) 10 mg THREE TIMES A DAY ORAL 04/11/20 09:00 07/08/20 12:59 04/11/20 09:03 Morphine Sulfate (Morphine Sulfate) 1 mg Q6H PRN IVP For Pain 04/05/20 15:30 04/12/20 15:29 Nitroglycerin (Ntg) 0.4 mg Q5M X 3 DOSES PRN SL Prn Chest Pain 04/05/20 15:30 05/05/20 15:29 Olanzapine (ZyPREXA) 5 mg BID ORAL 04/06/20 18:00 05/21/20 17:59 04/11/20 09:02 Ondansetron HCl (Zofran) 4 mg Q6H PRN IVP Nausea & Vomiting 04/05/20 15:30 05/05/20 15:29 Pantoprazole (Protonix) 40 mg Q12HR ORAL 04/06/20 21:00 05/06/20 08:59 04/11/20 09:02 Quetiapine Fumarate (SEROqueL) 200 mg QHS ORAL 04/06/20 21:00 05/21/20 20:59 04/10/20 21:36 Tamsulosin HCl (Flomax) 0.4 mg DAILY ORAL 04/11/20 09:00 05/11/20 08:59 04/11/20 09:02 Zolpidem Tartrate (Ambien) 5 mg HSPRN PRN ORAL Insomnia 04/05/20 15:30 04/12/20 15:29 04/10/20 22:48 Last 24 Hour Vital Signs Date Time Temp Pulse Resp B/P (MAP) Pulse Ox O2 Delivery O2 Flow Rate FiO2 04/11/20 09:00 Room Air 04/11/20 08:00 97.2 69 18 94/63 (73) 97 04/11/20 04:00 98.0 53 18 107/57 (74) 96 04/11/20 00:00 97.8 52 18 99/54 (69) 96 04/10/20 21:16 97.0 53 18 106/47 (66) 97 04/10/20 21:00 Room Air 04/10/20 20:00 97.0 50 18 86/55 (65) 97 04/10/20 16:00 98.1 76 17 110/63 (79) 97 04/10/20 12:00 98.9 79 18 101/61 (74) 98 04/10/20 09:00 Room Air 04/10/20 08:00 98.3 51 18 96/59 (71) 96 04/10/20 04:00 97.4 57 19 105/55 (72) 96 04/10/20 00:00 98.7 55 19 94/52 (66) 96 04/09/20 21:00 Room Air 04/09/20 20:00 98.2 50 19 103/51 (68) 98 04/09/20 16:00 98.6 71 19 110/64 (79) 97 04/09/20 12:00 98.8 65 18 107/60 (76) 97 Intake and Output 04/10/20 04/11/20 19:00 07:00 Intake Total 750 ml 850 ml Balance 750 ml 850 ml Intake Oral 250 ml IV Total 150 ml 600 ml Other 600 ml # Voids 3 Labs Test 04/09/20 06:00 04/09/20 12:10 04/10/20 08:05 04/11/20 04:00 White Blood Count 16.4 K/UL (4.8-10.8) 16.5 K/UL (4.8-10.8) Red Blood Count 2.55 M/UL (4.20-5.40) 2.80 M/UL (4.20-5.40) Hemoglobin 7.8 G/DL (12.0-16.0) 8.4 G/DL (12.0-16.0) Hematocrit 23.6 % (37.0-47.0) 26.2 % (37.0-47.0) Mean Corpuscular Volume 93 FL (80-99) 93 FL (80-99) Mean Corpuscular Hemoglobin 30.4 PG (27.0-31.0) 30.0 PG (27.0-31.0) Mean Corpuscular Hemoglobin Concent 32.9 G/DL (32.0-36.0) 32.2 G/DL (32.0-36.0) Red Cell Distribution Width 16.1 % (11.6-14.8) 15.8 % (11.6-14.8) Platelet Count 307 K/UL (150-450) 343 K/UL (150-450) Mean Platelet Volume 4.6 FL (6.5-10.1) 4.5 FL (6.5-10.1) Neutrophils (%) (Auto) % (45.0-75.0) % (45.0-75.0) Lymphocytes (%) (Auto) % (20.0-45.0) % (20.0-45.0) Monocytes (%) (Auto) % (1.0-10.0) % (1.0-10.0) Eosinophils (%) (Auto) % (0.0-3.0) % (0.0-3.0) Basophils (%) (Auto) % (0.0-2.0) % (0.0-2.0) Differential Total Cells Counted 100 100 Neutrophils % (Manual) 64 % (45-75) 45 % (45-75) Lymphocytes % (Manual) 21 % (20-45) 20 % (20-45) Monocytes % (Manual) 11 % (1-10) 6 % (1-10) Eosinophils % (Manual) 0 % (0-3) 3 % (0-3) Basophils % (Manual) 0 % (0-2) 0 % (0-2) Band Neutrophils 4 % (0-8) 10 % (0-8) Platelet Estimate Adequate Adequate Platelet Morphology Normal Normal Hypochromasia 3+ Anisocytosis 1+ Spherocytes 1+ Sodium Level 143 MMOL/L (136-145) 142 MMOL/L (136-145) 143 MMOL/L (136-145) Potassium Level 3.7 MMOL/L (3.5-5.1) 4.0 MMOL/L (3.5-5.1) 3.9 MMOL/L (3.5-5.1) Chloride Level 111 MMOL/L (98-107) 110 MMOL/L (98-107) 111 MMOL/L (98-107) Carbon Dioxide Level 19 MMOL/L (21-32) 18 MMOL/L (21-32) 20 MMOL/L (21-32) Anion Gap 13 mmol/L (5-15) 14 mmol/L (5-15) 12 mmol/L (5-15) Blood Urea Nitrogen 63 mg/dL (7-18) 56 mg/dL (7-18) 54 mg/dL (7-18) Creatinine 3.0 MG/DL (0.55-1.30) 2.7 MG/DL (0.55-1.30) 3.0 MG/DL (0.55-1.30) Estimat Glomerular Filtration Rate 16.4 mL/min (>60) 18.5 mL/min (>60) 16.4 mL/min (>60) Glucose Level 109 MG/DL (74-106) 99 MG/DL (74-106) 78 MG/DL (74-106) Calcium Level 10.4 MG/DL (8.5-10.1) 11.0 MG/DL (8.5-10.1) 9.8 MG/DL (8.5-10.1) Total Protein (PEP) 5.8 g/dL (6.0-8.5) Albumin (PEP) 2.0 g/dL (2.9-4.4) Globulin (PEP) 3.8 g/dL (2.2-3.9) Albumin/Globulin Ratio 0.5 (0.7-1.7) 0.3 (1.0-2.7) 0.3 (1.0-2.7) Exwwd-5-Kzykhksud 0.4 g/dL (0.0-0.4) Apmio-6-Hseuhxekd 1.0 g/dL (0.4-1.0) Beta Globulins 1.1 g/dL (0.7-1.3) Beta Gamma Globulin 1.2 g/dL (0.4-1.8) PEP Abnormal Protein Bands Not observed g/dL (Not Protein Electrophoresis Interpret Comment (.) Metamyelocytes % 3 % (0-0) Myelocytes % 13 % (0-0) Red Blood Cell Morphology Normal Uric Acid 10.9 MG/DL (2.6-7.2) Phosphorus Level 3.8 MG/DL (2.5-4.9) 3.9 MG/DL (2.5-4.9) Magnesium Level 2.2 MG/DL (1.8-2.4) 2.0 MG/DL (1.8-2.4) Total Bilirubin 0.2 MG/DL (0.2-1.0) 0.1 MG/DL (0.2-1.0) Aspartate Amino Transf (AST/SGOT) 24 U/L (15-37) 23 U/L (15-37) Alanine Aminotransferase (ALT/SGPT) 11 U/L (12-78) 16 U/L (12-78) Alkaline Phosphatase 73 U/L (46-116) 65 U/L (46-116) Total Protein 7.7 G/DL (6.4-8.2) 7.1 G/DL (6.4-8.2) Albumin 1.9 G/DL (3.4-5.0) 1.8 G/DL (3.4-5.0) Globulin 5.8 g/dL 5.3 g/dL Test 04/11/20 05:20 White Blood Count 14.8 K/UL (4.8-10.8) Red Blood Count 2.56 M/UL (4.20-5.40) Hemoglobin 7.8 G/DL (12.0-16.0) Hematocrit 23.5 % (37.0-47.0) Mean Corpuscular Volume 92 FL (80-99) Mean Corpuscular Hemoglobin 30.6 PG (27.0-31.0) Mean Corpuscular Hemoglobin Concent 33.3 G/DL (32.0-36.0) Red Cell Distribution Width 15.5 % (11.6-14.8) Platelet Count 355 K/UL (150-450) Mean Platelet Volume 4.6 FL (6.5-10.1) Neutrophils (%) (Auto) % (45.0-75.0) Lymphocytes (%) (Auto) % (20.0-45.0) Monocytes (%) (Auto) % (1.0-10.0) Eosinophils (%) (Auto) % (0.0-3.0) Basophils (%) (Auto) % (0.0-2.0) Differential Total Cells Counted 100 Neutrophils % (Manual) 61 % (45-75) Lymphocytes % (Manual) 19 % (20-45) Monocytes % (Manual) 9 % (1-10) Eosinophils % (Manual) 3 % (0-3) Basophils % (Manual) 1 % (0-2) Metamyelocytes % 4 % (0-0) Myelocytes % 1 % (0-0) Band Neutrophils 2 % (0-8) Platelet Estimate Adequate Platelet Morphology Normal Hypochromasia 3+ Anisocytosis 1+ Spherocytes 1+ Height (Feet): 5 Height (Inches): 5.00 Weight (Pounds): 194 Objective Vitals: reviewed General: NAD HEENT: nc, at, legally blind+ Neck: supple Chest: clear breath sounds bilaterally Cardiovascular: RRR, no s3, s4 Abdomen: soft, nontender, nd Extremities: no cce, normal range of motion Neuro: alert and oriented David Ivey MD April 11, 2020 10:57
[2020-04-11 12:00] VITALS: BP 129/57
--- NOTE | 2020-04-11 13:45 | Infectious Diseases Prog Note ---
Assessment/Plan Assessment/Plan Assessment: Sepsis UTI -u/a wbc tnct, nit +, leuk +3; ucx >100k E.coli (R amp, bactrim, levaquin; otherwise S) Low grade fever, SP- COVID19 neg x 2 (resident from [place] with large outbreak)- Leukocytosis; improving ?Pneumonia 04/10 CXR: No acute process -04/08 SARS-COV2 PCR neg - 04/06 CXR: Questionable developing bilateral hazy infiltrates, versus artifact of low lung volumes. Correlate with clinical findings -04/05 CXR; no acute process SARS-COV2 PCR neg -Bx Neg ANemia MARIA C on CKD GERD seizure disorder Dementia SN[facility] resident (Tanya henderson) Plan: Continue Ceftriaxone #4 (abx d #05/09) for UTI -upon discharge, can be transition to PO keflex 250mg bid for 5 more days -04/08 SP Levaquin #2 -04/06 SP Zosyn x1 -04/06 SP Ceftriaxone #2 -04/05 SP IV Vancomycin x1, Cefepime x1 -f/u cx -Monitor CBC/CMP, temperatures -COVID19 neg x2; ok to dc isolation -Cdiff if diarrhea Thank you for consulting [facility]. Will continue to follow along with you, Discussed with RN. Subjective Allergies: Coded Allergies: No Known Allergies (Unverified , 10/09/18) Subjective afebrile at RA wbc improving Objective Vital Signs Last 24 Hour Vital Signs Date Time Temp Pulse Resp B/P (MAP) Pulse Ox O2 Delivery O2 Flow Rate FiO2 04/11/20 12:00 97.1 47 19 129/57 (81) 98 04/11/20 09:00 Room Air 04/11/20 08:00 97.2 69 18 94/63 (73) 97 04/11/20 04:00 98.0 53 18 107/57 (74) 96 04/11/20 00:00 97.8 52 18 99/54 (69) 96 04/10/20 21:16 97.0 53 18 106/47 (66) 97 04/10/20 21:00 Room Air 04/10/20 20:00 97.0 50 18 86/55 (65) 97 04/10/20 16:00 98.1 76 17 110/63 (79) 97 Height (Feet): 5 Height (Inches): 5.00 Weight (Pounds): 194 Objective General: NAD HEENT: nc, at, legally blind+ Neck: supple Chest: clear breath sounds bilaterally Cardiovascular: RRR, no s3, s4 Abdomen: soft, nontender, nd Extremities: no cce, normal range of motion Neuro: alert and oriented Laboratory Tests Test 04/11/20 04:00 04/11/20 05:20 Sodium Level 143 MMOL/L (136-145) Potassium Level 3.9 MMOL/L (3.5-5.1) Chloride Level 111 MMOL/L (98-107) H Carbon Dioxide Level 20 MMOL/L (21-32) L Anion Gap 12 mmol/L (5-15) Blood Urea Nitrogen 54 mg/dL (7-18) H Creatinine 3.0 MG/DL (0.55-1.30) H Estimat Glomerular Filtration Rate 16.4 mL/min (>60) Glucose Level 78 MG/DL (74-106) Calcium Level 9.8 MG/DL (8.5-10.1) Phosphorus Level 3.9 MG/DL (2.5-4.9) Magnesium Level 2.0 MG/DL (1.8-2.4) Total Bilirubin 0.1 MG/DL (0.2-1.0) L Aspartate Amino Transf (AST/SGOT) 23 U/L (15-37) Alanine Aminotransferase (ALT/SGPT) 16 U/L (12-78) Alkaline Phosphatase 65 U/L (46-116) Total Protein 7.1 G/DL (6.4-8.2) Albumin 1.8 G/DL (3.4-5.0) L Globulin 5.3 g/dL Albumin/Globulin Ratio 0.3 (1.0-2.7) L White Blood Count 14.8 K/UL (4.8-10.8) H Red Blood Count 2.56 M/UL (4.20-5.40) L Hemoglobin 7.8 G/DL (12.0-16.0) L Hematocrit 23.5 % (37.0-47.0) L Mean Corpuscular Volume 92 FL (80-99) Mean Corpuscular Hemoglobin 30.6 PG (27.0-31.0) Mean Corpuscular Hemoglobin Concent 33.3 G/DL (32.0-36.0) Red Cell Distribution Width 15.5 % (11.6-14.8) H Platelet Count 355 K/UL (150-450) Mean Platelet Volume 4.6 FL (6.5-10.1) L Neutrophils (%) (Auto) % (45.0-75.0) Lymphocytes (%) (Auto) % (20.0-45.0) Monocytes (%) (Auto) % (1.0-10.0) Eosinophils (%) (Auto) % (0.0-3.0) Basophils (%) (Auto) % (0.0-2.0) Differential Total Cells Counted 100 Neutrophils % (Manual) 61 % (45-75) Lymphocytes % (Manual) 19 % (20-45) L Monocytes % (Manual) 9 % (1-10) Eosinophils % (Manual) 3 % (0-3) Basophils % (Manual) 1 % (0-2) Metamyelocytes % 4 % (0-0) H Myelocytes % 1 % (0-0) H Band Neutrophils 2 % (0-8) Platelet Estimate Adequate Platelet Morphology Normal Hypochromasia 3+ Anisocytosis 1+ Spherocytes 1+ Current Medications Medications (Trade) Dose Ordered Sig/Alix Route PRN Reason Start Time Stop Time Status Last Admin Dose Admin Acetaminophen (Tylenol) 650 mg Q4H PRN ORAL Mild Pain (Pain Scale 1-3) 04/05/20 15:30 05/05/20 15:29 04/10/20 01:14 Bisacodyl (Dulcolax) 10 mg DAILYPRN PRN RECTAL Constipation 04/05/20 16:30 07/04/20 16:29 Calcitonin [place] (Miacalcin) 1 sprays DAILY NASAL 04/10/20 11:00 07/09/20 10:59 04/11/20 09:04 Ceftriaxone Sodium 1 gm/ Dextrose 55 ml @ 110 mls/hr Q24H IVPB 04/08/20 16:00 04/15/20 15:59 04/10/20 15:53 Citalopram Hydrobromide (CeleXA) 20 mg DAILY ORAL 04/07/20 09:00 05/07/20 08:59 04/11/20 09:03 Dextrose 1,000 ml @ 150 mls/hr Q6H40M IV 04/07/20 12:45 05/07/20 12:44 04/11/20 09:04 Dextrose (Dextrose 50%) 25 ml Q30M PRN IV Hypoglycemia 04/05/20 15:30 07/04/20 15:29 Dextrose (Dextrose 50%) 50 ml Q30M PRN IV Hypoglycemia 04/05/20 15:30 07/04/20 15:29 Diphenhydramine HCl (Benadryl) 25 mg Q6H PRN ORAL Itching/Pruritis 04/05/20 15:30 05/05/20 15:29 Divalproex Sodium (Depakote ER) 500 mg EVERY 12 HOURS ORAL 04/06/20 21:00 05/06/20 20:59 04/11/20 09:02 Docusate Sodium (Colace) 100 mg TID ORAL 04/06/20 13:00 05/05/20 20:59 04/11/20 12:12 Epoetin Enrique (Epoetin Enrique-EPBX(NON ESRD)) 4,000 unit THU-THU-THU SUBQ 04/09/20 21:00 07/08/20 20:59 04/09/20 20:49 Folic Acid (Folate) 2 mg DAILY ORAL 04/10/20 09:00 05/09/20 08:59 04/11/20 09:02 Heparin Sodium (Porcine) (Heparin 5000 units/ml) 5,000 units EVERY 12 HOURS SUBQ 04/05/20 21:00 05/20/20 20:59 04/11/20 09:05 Levothyroxine Sodium (Synthroid) 75 mcg DAILY@0630 ORAL 04/08/20 06:30 05/07/20 06:29 04/11/20 06:17 Lorazepam (Ativan) 1 mg Q6H PRN ORAL For Anxiety 04/06/20 14:30 04/13/20 14:29 04/11/20 01:05 Midodrine (Pro-Amatine) 10 mg THREE TIMES A DAY ORAL 04/11/20 09:00 07/08/20 12:59 04/11/20 12:12 Morphine Sulfate (Morphine Sulfate) 1 mg Q6H PRN IVP For Pain 04/05/20 15:30 04/12/20 15:29 Nitroglycerin (Ntg) 0.4 mg Q5M X 3 DOSES PRN SL Prn Chest Pain 04/05/20 15:30 05/05/20 15:29 Olanzapine (ZyPREXA) 5 mg BID ORAL 04/06/20 18:00 05/21/20 17:59 04/11/20 09:02 Ondansetron HCl (Zofran) 4 mg Q6H PRN IVP Nausea & Vomiting 04/05/20 15:30 05/05/20 15:29 Pantoprazole (Protonix) 40 mg Q12HR ORAL 04/06/20 21:00 05/06/20 08:59 04/11/20 09:02 Quetiapine Fumarate (SEROqueL) 200 mg QHS ORAL 04/06/20 21:00 05/21/20 20:59 04/10/20 21:36 Tamsulosin HCl (Flomax) 0.4 mg DAILY ORAL 04/11/20 09:00 05/11/20 08:59 04/11/20 09:02 Zolpidem Tartrate (Ambien) 5 mg HSPRN PRN ORAL Insomnia 04/05/20 15:30 04/12/20 15:29 04/10/20 22:48 Kari Chacon M.D. April 11, 2020 13:45
--- NOTE | 2020-04-11 14:16 | Nephrology Progress Note ---
Assessment/Plan Problem List: (1) Hypercalcemia (2) Renal failure (ARF), acute on chronic (3) Seizure (4) UTI (urinary tract infection) (5) Blind (6) Suspected COVID-19 virus infection (7) Dehydration (8) Symptomatic anemia (9) Anemia Assessment Renal failure most likely acute Underlying chronic kidney disease History of diabetes mellitus, but hemoglobin A1c is 5.7 Severe anemia Hypercalcemia Leukocytosis, UTI Seizure disorder Patient blind Has history of psych disease [facility] resident Plan April 11: Creatinine is 3 today Mild bilateral hydro-on kidney ultrasound Will start Flomax Serum protein electrophoresis does not suggest any abnormal protein Hypercalcemia is improving April 10: Serum creatinine lowering with hydration Hypercalcemia persists, will start nasal calcitonin spray Waiting for serum protein electrophoresis results Will continue to monitor renal parameters and serum calcium and phosphorus April 09: Kidney ultrasound is not done until we have 2- COVID-19 tests Meanwhile the patient has hypercalcemia, anemia, renal failure so is suspicious for multiple myeloma We will give Aredia 60 mg 1 time today Will order urine and serum protein electrophoresis Continue per consultants Previously First COVID 19 test negative x1 Kidney ultrasound ordered still pending Discussed with RN Patient needs IV hydration, D5W 150 cc an hour ordered RN reports that the patient refuses IV fluid and also refuses medication at times Continue antibiotics Monitor renal parameters Urine studies, if urine specimen can be obtained Subjective ROS Limited/Unobtainable: No Constitutional: Reports: malaise, weakness Objective Objective Last 24 Hour Vital Signs Date Time Temp Pulse Resp B/P (MAP) Pulse Ox O2 Delivery O2 Flow Rate FiO2 04/11/20 12:00 97.1 47 19 129/57 (81) 98 04/11/20 09:00 Room Air 04/11/20 08:00 97.2 69 18 94/63 (73) 97 04/11/20 04:00 98.0 53 18 107/57 (74) 96 04/11/20 00:00 97.8 52 18 99/54 (69) 96 04/10/20 21:16 97.0 53 18 106/47 (66) 97 04/10/20 21:00 Room Air 04/10/20 20:00 97.0 50 18 86/55 (65) 97 04/10/20 16:00 98.1 76 17 110/63 (79) 97 Intake and Output 04/10/20 04/11/20 19:00 07:00 Intake Total 750 ml 850 ml Balance 750 ml 850 ml Intake Oral 250 ml IV Total 150 ml 600 ml Other 600 ml # Voids 3 Laboratory Tests 04/11/20 04:00: Sodium Level 143, Potassium Level 3.9, Chloride Level 111H, Carbon Dioxide Level 20L, Anion Gap 12, Blood Urea Nitrogen 54H, Creatinine 3.0H, Estimat Glomerular Filtration Rate 16.4, Glucose Level 78, Calcium Level 9.8, Phosphorus Level 3.9, Magnesium Level 2.0, Total Bilirubin 0.1L, Aspartate Amino Transf (AST/SGOT) 23, Alanine Aminotransferase (ALT/SGPT) 16, Alkaline Phosphatase 65, Total Protein 7.1, Albumin 1.8L, Globulin 5.3, Albumin/Globulin Ratio 0.3L 04/11/20 05:20: White Blood Count 14.8H, Red Blood Count 2.56L, Hemoglobin 7.8L, Hematocrit 23.5L, Mean Corpuscular Volume 92, Mean Corpuscular Hemoglobin 30.6, Mean Corpuscular Hemoglobin Concent 33.3, Red Cell Distribution Width 15.5H, Platelet Count 355, Mean Platelet Volume 4.6L, Neutrophils (%) (Auto) , Lymphocytes (%) (Auto) , Monocytes (%) (Auto) , Eosinophils (%) (Auto) , Basophils (%) (Auto) , Differential Total Cells Counted 100, Neutrophils % ( Manual) 61, Lymphocytes % (Manual) 19L, Monocytes % (Manual) 9, Eosinophils % ( Manual) 3, Basophils % (Manual) 1, Metamyelocytes % 4H, Myelocytes % 1H, Band Neutrophils 2, Platelet Estimate Adequate, Platelet Morphology Normal, Hypochromasia 3+, Anisocytosis 1+, Spherocytes 1+ Height (Feet): 5 Height (Inches): 5.00 Weight (Pounds): 194 General Appearance: no apparent distress Cardiovascular: bradycardia Respiratory/Chest: decreased breath sounds Abdomen: distended Objective No change Sohan Lane MD April 11, 2020 14:16
[2020-04-11 16:00] VITALS: BP 95/48
[2020-04-11] MEDS: cefTRIAXone 1gm/D5W 55ml IVPB SCH ×2 (18:32)
[2020-04-11 20:00] VITALS: BP 98/62
--- NOTE | 2020-04-11 21:00 | Progress Note ---
DATE: 04/05/2020 SUBJECTIVE: Amalia Heaton is a 54-year-old female patient. She is in the hospital because of urinary tract infection . She has COPD , GERD, seizure disorder, fever, diabetes, chronic renal disease, but she also has a lot of mood lability, agitation, that is why her attending has requested daily psychiatric consultation. MENTAL STATUS EXAMINATION: This is a 54-year-old female. Appearance is disheveled. Attitude, irritable and agitated. Affect, guarded and restricted. Intellect poor. Mood, depressed and anxious. Motor activity, psychomotor agitation. Insight and judgment is poor. DIAGNOSIS: Schizoaffective, bipolar type. PLAN: Treat her with Celexa 20 mg q. day as well as Ativan 1 mg every 6 hours p.r.n. anxiety and agitation, Zyprexa 5 mg twice a day, and Seroquel 200 mg at bedtime and Depakote 500 mg q.12 hours as a mood stabilizer. A 20 minutes of cognitive behavioral therapy will help identify automatic negative thoughts and help her convert negative thoughts to more positive thoughts to reduce depression, anxiety, and mood lability. Chart reviewed. Discussed with staff. Seen and assessed in the room. Pamela Maldonado M.D. DR: JASPER JOB#: [id number] CC:
[2020-04-11] MEDS: Zolpidem 5mg tab ORAL PRN ×2 (21:02→21:08)
[2020-04-11] MEDS: QUEtiapine 200mg tab ORAL SCH (21:02)
[2020-04-11] MEDS: Epoetin Alfa-EPBX (NON ESRD)4000 units/ml vial SUBQ SCH (21:04)
[2020-04-12] VITALS: BP 100/62
[2020-04-12 04:00] VITALS: BP 92/54
[2020-04-12 06:44] LABS: BASOPHILS % (AUTO) 1.5 % (0.0-2.0); EOSINOPHILS % (AUTO) 0.4 % (0.0-3.0); HEMATOCRIT 25.3 % (37.0-47.0); HEMOGLOBIN 8.3 G/DL (12.0-16.0); LYMPHOCYTES % (AUTO) 27.1 % (20.0-45.0); MEAN CORPUSCULAR VOLUME 93 FL (80-99); MONOCYTES % (AUTO) 6.9 % (1.0-10.0); NEUTROPHILS % (AUTO) 64.1 % (45.0-75.0); PLATELET COUNT 389 K/UL (150-450); RED BLOOD COUNT 2.73 M/UL (4.20-5.40); RED CELL DISTRIBUTION WIDTH 15.5 % (11.6-14.8); WHITE BLOOD COUNT 13.5 K/UL (4.8-10.8)
[2020-04-12 07:02] LABS: ANION GAP 12 mmol/L (5-15); BLOOD UREA NITROGEN 52 mg/dL (7-18); CALCIUM 9.4 MG/DL (8.5-10.1); CARBON DIOXIDE 21 MMOL/L (21-32); CHLORIDE 114 MMOL/L (98-107); CHOLESTEROL 200 MG/DL (< 200); CREATININE 2.6 MG/DL (0.55-1.30); HDL CHOLESTEROL 19 MG/DL (40-60); POTASSIUM 4.3 MMOL/L (3.5-5.1); SODIUM 147 MMOL/L (136-145); TRIGLYCERIDES 345 MG/DL (30-150)
[2020-04-12 07:20] LABS: ALANINE AMINOTRANSFERASE 16 U/L (12-78); ALKALINE PHOSPHATASE 74 U/L (46-116); ASPARTATE AMINO TRANSFERASE 25 U/L (15-37); BILIRUBIN,DIRECT < 0.1 MG/DL (0.0-0.3); BILIRUBIN,TOTAL 0.1 MG/DL (0.2-1.0); GAMMA GLUTAMYL TRANSPEPTIDASE 11 U/L (5-85); PHOSPHORUS 3.1 MG/DL (2.5-4.9)
[2020-04-12 08:00] VITALS: BP 93/59
[2020-04-12] MEDS: LORazepam 1mg tab ORAL PRN (09:12)
[2020-04-12] MEDS: Docusate 100mg cap ORAL SCH ×3 (09:12→18:46)
[2020-04-12] MEDS: Depakote ER 500mg tab ORAL SCH (09:13)
[2020-04-12] MEDS: Citalopram Hydrobromide 10mg Tab ORAL SCH (09:13)
[2020-04-12] MEDS: Tamsulosin 0.4mg cap ORAL SCH (09:13)
[2020-04-12] MEDS: Heparin 5000 units/ml inj SUBQ SCH (09:14)
--- NOTE | 2020-04-12 10:38 | Pulmonology Progress Note ---
Subjective ROS Limited/Unobtainable: No Interval Events: None new Constitutional: Reports: no symptoms HEENT: Repors: no symptoms Respiratory: Reports: no symptoms Cardiovascular: Reports: no symptoms Gastrointestinal/Abdominal: Reports: no symptoms Allergies: Coded Allergies: No Known Allergies (Unverified , 10/09/18) All Systems: reviewed and negative except above Objective Last 24 Hour Vital Signs Date Time Temp Pulse Resp B/P (MAP) Pulse Ox O2 Delivery O2 Flow Rate FiO2 04/12/20 09:00 Room Air 04/12/20 08:00 97.9 56 20 93/59 (70) 98 04/12/20 04:00 97.7 55 18 92/54 (67) 97 04/12/20 00:00 98.2 50 18 100/62 (75) 94 04/11/20 21:00 Room Air 04/11/20 20:00 97.0 48 18 98/62 (74) 99 04/11/20 16:00 98.2 53 18 95/48 (64) 97 04/11/20 12:00 97.1 47 19 129/57 (81) 98 Intake and Output 04/11/20 04/12/20 19:00 07:00 Intake Total 480 ml 690 ml Balance 480 ml 690 ml Intake Oral 480 ml 240 ml IV Total 450 ml # Voids 1 3 # Bowel Movements 1 General Appearance: no acute distress HEENT: normocephalic Respiratory/Chest: chest wall non-tender, lungs clear Cardiovascular: normal peripheral pulses, normal rate Abdomen: normal bowel sounds Laboratory Tests 04/12/20 05:35: White Blood Count 13.5H, Red Blood Count 2.73L, Hemoglobin 8.3L, Hematocrit 25.3L, Mean Corpuscular Volume 93, Mean Corpuscular Hemoglobin 30.6, Mean Corpuscular Hemoglobin Concent 32.9, Red Cell Distribution Width 15.5H, Platelet Count 389, Mean Platelet Volume 4.9L, Neutrophils (%) (Auto) 64.1, Lymphocytes (%) (Auto) 27.1, Monocytes (%) (Auto) 6.9, Eosinophils (%) (Auto) 0.4, Basophils (%) (Auto) 1.5, Sodium Level 147H, Potassium Level 4.3, Chloride Level 114H, Carbon Dioxide Level 21, Anion Gap 12, Blood Urea Nitrogen 52H, Creatinine 2.6H, Estimat Glomerular Filtration Rate 19.4, Glucose Level 85, Uric Acid 11.4H, Calcium Level 9.4, Phosphorus Level 3.1, Total Bilirubin 0.1L, Direct Bilirubin < 0.1, Gamma Glutamyl Transpeptidase 11, Aspartate Amino Transf (AST/SGOT) 25, Alanine Aminotransferase (ALT/SGPT) 16, Alkaline Phosphatase 74, Total Protein 7.3, Albumin 2.0L, Triglycerides Level 345H, Cholesterol Level 200, LDL Cholesterol 111H, HDL Cholesterol 19L, Cholesterol/ HDL Ratio 10.5H Current Medications Medications (Trade) Dose Ordered Sig/Alix Route PRN Reason Start Time Stop Time Status Last Admin Dose Admin Acetaminophen (Tylenol) 650 mg Q4H PRN ORAL Mild Pain (Pain Scale 1-3) 04/05/20 15:30 05/05/20 15:29 04/10/20 01:14 Allopurinol (allopurinoL) 300 mg DAILY ORAL 04/13/20 09:00 05/13/20 08:59 Bisacodyl (Dulcolax) 10 mg DAILYPRN PRN RECTAL Constipation 04/05/20 16:30 07/04/20 16:29 Calcitonin [place] (Miacalcin) 1 sprays DAILY NASAL 04/10/20 11:00 07/09/20 10:59 04/12/20 09:21 Ceftriaxone Sodium 1 gm/ Dextrose 55 ml @ 110 mls/hr Q24H IVPB 04/08/20 16:00 04/15/20 15:59 04/11/20 18:32 Citalopram Hydrobromide (CeleXA) 20 mg DAILY ORAL 04/07/20 09:00 05/07/20 08:59 04/12/20 09:13 Dextrose 1,000 ml @ 150 mls/hr Q6H40M IV 04/07/20 12:45 05/07/20 12:44 04/12/20 05:38 Dextrose (Dextrose 50%) 25 ml Q30M PRN IV Hypoglycemia 04/05/20 15:30 07/04/20 15:29 Dextrose (Dextrose 50%) 50 ml Q30M PRN IV Hypoglycemia 04/05/20 15:30 07/04/20 15:29 Diphenhydramine HCl (Benadryl) 25 mg Q6H PRN ORAL Itching/Pruritis 04/05/20 15:30 05/05/20 15:29 Divalproex Sodium (Depakote ER) 500 mg EVERY 12 HOURS ORAL 04/06/20 21:00 05/06/20 20:59 04/12/20 09:13 Docusate Sodium (Colace) 100 mg TID ORAL 04/06/20 13:00 05/05/20 20:59 04/12/20 09:12 Epoetin Enrique (Epoetin Enrique-EPBX(NON ESRD)) 4,000 unit THU-THU-THU SUBQ 04/09/20 21:00 07/08/20 20:59 04/11/20 21:04 Folic Acid (Folate) 2 mg DAILY ORAL 04/10/20 09:00 05/09/20 08:59 04/12/20 09:13 Heparin Sodium (Porcine) (Heparin 5000 units/ml) 5,000 units EVERY 12 HOURS SUBQ 04/05/20 21:00 05/20/20 20:59 04/12/20 09:14 Levothyroxine Sodium (Synthroid) 75 mcg DAILY@0630 ORAL 04/08/20 06:30 05/07/20 06:29 04/12/20 05:37 Lorazepam (Ativan) 1 mg Q6H PRN ORAL For Anxiety 04/06/20 14:30 04/13/20 14:29 04/12/20 09:12 Midodrine (Pro-Amatine) 10 mg THREE TIMES A DAY ORAL 04/11/20 09:00 07/08/20 12:59 04/12/20 09:12 Morphine Sulfate (Morphine Sulfate) 1 mg Q6H PRN IVP For Pain 04/05/20 15:30 04/12/20 15:29 Nitroglycerin (Ntg) 0.4 mg Q5M X 3 DOSES PRN SL Prn Chest Pain 04/05/20 15:30 05/05/20 15:29 Olanzapine (ZyPREXA) 5 mg BID ORAL 04/06/20 18:00 05/21/20 17:59 04/12/20 09:12 Ondansetron HCl (Zofran) 4 mg Q6H PRN IVP Nausea & Vomiting 04/05/20 15:30 05/05/20 15:29 Pantoprazole (Protonix) 40 mg Q12HR ORAL 04/06/20 21:00 05/06/20 08:59 04/12/20 09:12 Quetiapine Fumarate (SEROqueL) 200 mg QHS ORAL 04/06/20 21:00 05/21/20 20:59 04/11/20 21:02 Tamsulosin HCl (Flomax) 0.4 mg DAILY ORAL 04/11/20 09:00 05/11/20 08:59 04/12/20 09:13 Zolpidem Tartrate (Ambien) 5 mg HSPRN PRN ORAL Insomnia 04/05/20 15:30 04/12/20 15:29 04/11/20 21:08 Assessment/Plan Assessment/Plan IMPRESSION: 1. Leukocytosis. 2. Anemia. 3. CKD. 4. Seizure disorder. 5. COPD. 6. intermediate resident. DISCUSSION: Seen by ID; continue empiric antibiotics. Changes reviewed per ID Continue medications. I will follow. Respiratory status is stable Jerel Walker M.D. Jerel Walker MD April 12, 2020 10:38
[2020-04-12 12:00] VITALS: BP 100/62
--- NOTE | 2020-04-12 12:16 | Infectious Diseases Prog Note ---
Assessment/Plan Assessment/Plan Assessment: Sepsis UTI -u/a wbc tnct, nit +, leuk +3; ucx >100k E.coli (R amp, bactrim, levaquin; otherwise S) Low grade fever, SP- COVID19 neg x 2 (resident from [place] with large outbreak)- Leukocytosis; improving ?Pneumonia 04/10 CXR: No acute process -04/08 SARS-COV2 PCR neg - 04/06 CXR: Questionable developing bilateral hazy infiltrates, versus artifact of low lung volumes. Correlate with clinical findings -04/05 CXR; no acute process SARS-COV2 PCR neg -Bx Neg ANemia MARIA C on CKD GERD seizure disorder Dementia SNF resident (Tanya henderson) Plan: Continue Ceftriaxone #5 (abx d #06/08) for UTI -upon discharge, can be transition to PO keflex 250mg bid for 4 more days -04/08 SP Levaquin #2 -04/06 SP Zosyn x1 -04/06 SP Ceftriaxone #2 -04/05 SP IV Vancomycin x1, Cefepime x1 -f/u cx -Monitor CBC/CMP, temperatures -COVID19 neg x2; ok to dc isolation -Cdiff if diarrhea Thank you for consulting [facility]. Will continue to follow along with you, Discussed with RN. Subjective Allergies: Coded Allergies: No Known Allergies (Unverified , 10/09/18) Subjective afebrile at RA wbc improving discharge planning Objective Vital Signs Last 24 Hour Vital Signs Date Time Temp Pulse Resp B/P (MAP) Pulse Ox O2 Delivery O2 Flow Rate FiO2 04/12/20 09:00 Room Air 04/12/20 08:00 97.9 56 20 93/59 (70) 98 04/12/20 04:00 97.7 55 18 92/54 (67) 97 04/12/20 00:00 98.2 50 18 100/62 (75) 94 04/11/20 21:00 Room Air 04/11/20 20:00 97.0 48 18 98/62 (74) 99 04/11/20 16:00 98.2 53 18 95/48 (64) 97 Height (Feet): 5 Height (Inches): 5.00 Weight (Pounds): 194 Objective General: NAD HEENT: nc, at, legally blind+ Neck: supple Chest: clear breath sounds bilaterally Cardiovascular: RRR, no s3, s4 Abdomen: soft, nontender, nd Extremities: no cce, normal range of motion Neuro: alert and oriented Laboratory Tests Test 04/12/20 05:35 White Blood Count 13.5 K/UL (4.8-10.8) H Red Blood Count 2.73 M/UL (4.20-5.40) L Hemoglobin 8.3 G/DL (12.0-16.0) L Hematocrit 25.3 % (37.0-47.0) L Mean Corpuscular Volume 93 FL (80-99) Mean Corpuscular Hemoglobin 30.6 PG (27.0-31.0) Mean Corpuscular Hemoglobin Concent 32.9 G/DL (32.0-36.0) Red Cell Distribution Width 15.5 % (11.6-14.8) H Platelet Count 389 K/UL (150-450) Mean Platelet Volume 4.9 FL (6.5-10.1) L Neutrophils (%) (Auto) 64.1 % (45.0-75.0) Lymphocytes (%) (Auto) 27.1 % (20.0-45.0) Monocytes (%) (Auto) 6.9 % (1.0-10.0) Eosinophils (%) (Auto) 0.4 % (0.0-3.0) Basophils (%) (Auto) 1.5 % (0.0-2.0) Sodium Level 147 MMOL/L (136-145) H Potassium Level 4.3 MMOL/L (3.5-5.1) Chloride Level 114 MMOL/L (98-107) H Carbon Dioxide Level 21 MMOL/L (21-32) Anion Gap 12 mmol/L (5-15) Blood Urea Nitrogen 52 mg/dL (7-18) H Creatinine 2.6 MG/DL (0.55-1.30) H Estimat Glomerular Filtration Rate 19.4 mL/min (>60) Glucose Level 85 MG/DL (74-106) Uric Acid 11.4 MG/DL (2.6-7.2) H Calcium Level 9.4 MG/DL (8.5-10.1) Phosphorus Level 3.1 MG/DL (2.5-4.9) Total Bilirubin 0.1 MG/DL (0.2-1.0) L Direct Bilirubin < 0.1 MG/DL (0.0-0.3) Gamma Glutamyl Transpeptidase 11 U/L (5-85) Aspartate Amino Transf (AST/SGOT) 25 U/L (15-37) Alanine Aminotransferase (ALT/SGPT) 16 U/L (12-78) Alkaline Phosphatase 74 U/L (46-116) Total Protein 7.3 G/DL (6.4-8.2) Albumin 2.0 G/DL (3.4-5.0) L Triglycerides Level 345 MG/DL (30-150) H Cholesterol Level 200 MG/DL (< 200) LDL Cholesterol 111 mg/dL (<100) H HDL Cholesterol 19 MG/DL (40-60) L Cholesterol/HDL Ratio 10.5 (3.3-4.4) H Current Medications Medications (Trade) Dose Ordered Sig/Alix Route PRN Reason Start Time Stop Time Status Last Admin Dose Admin Acetaminophen (Tylenol) 650 mg Q4H PRN ORAL Mild Pain (Pain Scale 1-3) 04/05/20 15:30 05/05/20 15:29 04/10/20 01:14 Allopurinol (allopurinoL) 300 mg DAILY ORAL 04/13/20 09:00 05/13/20 08:59 Bisacodyl (Dulcolax) 10 mg DAILYPRN PRN RECTAL Constipation 04/05/20 16:30 07/04/20 16:29 Calcitonin [place] (Miacalcin) 1 sprays DAILY NASAL 04/10/20 11:00 07/09/20 10:59 04/12/20 09:21 Ceftriaxone Sodium 1 gm/ Dextrose 55 ml @ 110 mls/hr Q24H IVPB 04/08/20 16:00 04/15/20 15:59 04/11/20 18:32 Citalopram Hydrobromide (CeleXA) 20 mg DAILY ORAL 04/07/20 09:00 05/07/20 08:59 04/12/20 09:13 Dextrose 1,000 ml @ 150 mls/hr Q6H40M IV 04/07/20 12:45 05/07/20 12:44 04/12/20 11:04 Dextrose (Dextrose 50%) 25 ml Q30M PRN IV Hypoglycemia 04/05/20 15:30 07/04/20 15:29 Dextrose (Dextrose 50%) 50 ml Q30M PRN IV Hypoglycemia 04/05/20 15:30 07/04/20 15:29 Diphenhydramine HCl (Benadryl) 25 mg Q6H PRN ORAL Itching/Pruritis 04/05/20 15:30 05/05/20 15:29 Divalproex Sodium (Depakote ER) 500 mg EVERY 12 HOURS ORAL 04/06/20 21:00 05/06/20 20:59 04/12/20 09:13 Docusate Sodium (Colace) 100 mg TID ORAL 04/06/20 13:00 05/05/20 20:59 04/12/20 09:12 Epoetin Enrique (Epoetin Enrique-EPBX(NON ESRD)) 4,000 unit THU- SUBQ 04/09/20 21:00 07/08/20 20:59 04/11/20 21:04 Folic Acid (Folate) 2 mg DAILY ORAL 04/10/20 09:00 05/09/20 08:59 04/12/20 09:13 Heparin Sodium (Porcine) (Heparin 5000 units/ml) 5,000 units EVERY 12 HOURS SUBQ 04/05/20 21:00 05/20/20 20:59 04/12/20 09:14 Levothyroxine Sodium (Synthroid) 75 mcg DAILY@0630 ORAL 04/08/20 06:30 05/07/20 06:29 04/12/20 05:37 Lorazepam (Ativan) 1 mg Q6H PRN ORAL For Anxiety 04/06/20 14:30 04/13/20 14:29 04/12/20 09:12 Midodrine (Pro-Amatine) 10 mg THREE TIMES A DAY ORAL 04/11/20 09:00 07/08/20 12:59 04/12/20 09:12 Morphine Sulfate (Morphine Sulfate) 1 mg Q6H PRN IVP For Pain 04/05/20 15:30 04/12/20 15:29 Nitroglycerin (Ntg) 0.4 mg Q5M X 3 DOSES PRN SL Prn Chest Pain 04/05/20 15:30 05/05/20 15:29 Olanzapine (ZyPREXA) 5 mg BID ORAL 04/06/20 18:00 05/21/20 17:59 04/12/20 09:12 Ondansetron HCl (Zofran) 4 mg Q6H PRN IVP Nausea & Vomiting 04/05/20 15:30 05/05/20 15:29 Pantoprazole (Protonix) 40 mg Q12HR ORAL 04/06/20 21:00 05/06/20 08:59 04/12/20 09:12 Quetiapine Fumarate (SEROqueL) 200 mg QHS ORAL 04/06/20 21:00 05/21/20 20:59 04/11/20 21:02 Tamsulosin HCl (Flomax) 0.4 mg DAILY ORAL 04/11/20 09:00 05/11/20 08:59 04/12/20 09:13 Zolpidem Tartrate (Ambien) 5 mg HSPRN PRN ORAL Insomnia 04/05/20 15:30 04/12/20 15:29 04/11/20 21:08 Kari Chacon M.D. April 12, 2020 12:16
--- NOTE | 2020-04-12 12:48 | Nephrology Progress Note ---
Assessment/Plan Problem List: (1) Hypercalcemia (2) Renal failure (ARF), acute on chronic (3) Seizure (4) UTI (urinary tract infection) (5) Blind (6) Suspected COVID-19 virus infection (7) Dehydration (8) Symptomatic anemia (9) Anemia Assessment Renal failure most likely acute Underlying chronic kidney disease History of diabetes mellitus, but hemoglobin A1c is 5.7 Severe anemia Hypercalcemia Leukocytosis, UTI Seizure disorder Patient blind Has history of psych disease long term resident Plan March 14: Creatinine lower Continue to hydrate Add allopurinol for high uric acid Serum calcium improving Add fish oil for high triglycerides April 11: Creatinine is 3 today Mild bilateral hydro-on kidney ultrasound Will start Flomax Serum protein electrophoresis does not suggest any abnormal protein Hypercalcemia is improving April 10: Serum creatinine lowering with hydration Hypercalcemia persists, will start nasal calcitonin spray Waiting for serum protein electrophoresis results Will continue to monitor renal parameters and serum calcium and phosphorus April 09: Kidney ultrasound is not done until we have 2- COVID-19 tests Meanwhile the patient has hypercalcemia, anemia, renal failure so is suspicious for multiple myeloma We will give Aredia 60 mg 1 time today Will order urine and serum protein electrophoresis Continue per consultants Previously First COVID 19 test negative x1 Kidney ultrasound ordered still pending Discussed with RN Patient needs IV hydration, D5W 150 cc an hour ordered RN reports that the patient refuses IV fluid and also refuses medication at times Continue antibiotics Monitor renal parameters Urine studies, if urine specimen can be obtained Subjective ROS Limited/Unobtainable: No Constitutional: Reports: malaise, weakness Objective Objective Last 24 Hour Vital Signs Date Time Temp Pulse Resp B/P (MAP) Pulse Ox O2 Delivery O2 Flow Rate FiO2 04/12/20 09:00 Room Air 04/12/20 08:00 97.9 56 20 93/59 (70) 98 04/12/20 04:00 97.7 55 18 92/54 (67) 97 04/12/20 00:00 98.2 50 18 100/62 (75) 94 04/11/20 21:00 Room Air 04/11/20 20:00 97.0 48 18 98/62 (74) 99 04/11/20 16:00 98.2 53 18 95/48 (64) 97 Intake and Output 04/11/20 04/12/20 19:00 07:00 Intake Total 480 ml 690 ml Balance 480 ml 690 ml Intake Oral 480 ml 240 ml IV Total 450 ml # Voids 1 3 # Bowel Movements 1 Laboratory Tests 04/12/20 05:35: White Blood Count 13.5H, Red Blood Count 2.73L, Hemoglobin 8.3L, Hematocrit 25.3L, Mean Corpuscular Volume 93, Mean Corpuscular Hemoglobin 30.6, Mean Corpuscular Hemoglobin Concent 32.9, Red Cell Distribution Width 15.5H, Platelet Count 389, Mean Platelet Volume 4.9L, Neutrophils (%) (Auto) 64.1, Lymphocytes (%) (Auto) 27.1, Monocytes (%) (Auto) 6.9, Eosinophils (%) (Auto) 0.4, Basophils (%) (Auto) 1.5, Sodium Level 147H, Potassium Level 4.3, Chloride Level 114H, Carbon Dioxide Level 21, Anion Gap 12, Blood Urea Nitrogen 52H, Creatinine 2.6H, Estimat Glomerular Filtration Rate 19.4, Glucose Level 85, Uric Acid 11.4H, Calcium Level 9.4, Phosphorus Level 3.1, Total Bilirubin 0.1L, Direct Bilirubin < 0.1, Gamma Glutamyl Transpeptidase 11, Aspartate Amino Transf (AST/SGOT) 25, Alanine Aminotransferase (ALT/SGPT) 16, Alkaline Phosphatase 74, Total Protein 7.3, Albumin 2.0L, Triglycerides Level 345H, Cholesterol Level 200, LDL Cholesterol 111H, HDL Cholesterol 19L, Cholesterol/ HDL Ratio 10.5H Height (Feet): 5 Height (Inches): 5.00 Weight (Pounds): 194 General Appearance: no apparent distress Objective No change Sohan Lane MD April 12, 2020 12:48
--- NOTE | 2020-04-12 13:06 | General Progress Note ---
Assessment/Plan Problem List: (1) CKD (chronic kidney disease) ICD Codes: N18.9 - Chronic kidney disease, unspecified SNOMED: 305507280 (2) Diabetes ICD Codes: E11.9 - Type 2 diabetes mellitus without complications SNOMED: 72464775 (3) COPD (chronic obstructive pulmonary disease) ICD Codes: J44.9 - Chronic obstructive pulmonary disease, unspecified SNOMED: 30502510 (4) Seizure ICD Codes: R56.9 - Unspecified convulsions SNOMED: 36512840 (5) GERD (gastroesophageal reflux disease) ICD Codes: K21.9 - Gastro-esophageal reflux disease without esophagitis SNOMED: 412063635 (6) Blind ICD Codes: H54.7 - Unspecified visual loss SNOMED: 599881041 (7) Behavioral change ICD Codes: R46.89 - Other symptoms and signs involving appearance and behavior SNOMED: 237618390 (8) UTI (urinary tract infection) ICD Codes: N39.0 - Urinary tract infection, site not specified SNOMED: 79434819 Qualifiers: Qualified Codes: N30.01 - Acute cystitis with hematuria (9) Fever ICD Codes: R50.9 - Fever, unspecified SNOMED: 098839798 Qualifiers: Qualified Codes: R50.9 - Fever, unspecified (10) Symptomatic anemia ICD Codes: D64.9 - Anemia, unspecified SNOMED: 919905797 (11) Suspected COVID-19 virus infection ICD Codes: Z20.828 - Contact with and (suspected) exposure to other viral communicable diseases SNOMED: 337344777 Status: stable, progressing Assessment/Plan: pt diet abx cbc bmp am dc to aru if clear Subjective Constitutional: Reports: weakness Allergies: Coded Allergies: No Known Allergies (Unverified , 10/09/18) All Systems: reviewed and negative except above Subjective sitting calm Objective Last 24 Hour Vital Signs Date Time Temp Pulse Resp B/P (MAP) Pulse Ox O2 Delivery O2 Flow Rate FiO2 04/12/20 09:00 Room Air 04/12/20 08:00 97.9 56 20 93/59 (70) 98 04/12/20 04:00 97.7 55 18 92/54 (67) 97 04/12/20 00:00 98.2 50 18 100/62 (75) 94 04/11/20 21:00 Room Air 04/11/20 20:00 97.0 48 18 98/62 (74) 99 04/11/20 16:00 98.2 53 18 95/48 (64) 97 Intake and Output 04/11/20 04/12/20 19:00 07:00 Intake Total 480 ml 690 ml Balance 480 ml 690 ml Intake Oral 480 ml 240 ml IV Total 450 ml # Voids 1 3 # Bowel Movements 1 Laboratory Tests 04/12/20 05:35: White Blood Count 13.5H, Red Blood Count 2.73L, Hemoglobin 8.3L, Hematocrit 25.3L, Mean Corpuscular Volume 93, Mean Corpuscular Hemoglobin 30.6, Mean Corpuscular Hemoglobin Concent 32.9, Red Cell Distribution Width 15.5H, Platelet Count 389, Mean Platelet Volume 4.9L, Neutrophils (%) (Auto) 64.1, Lymphocytes (%) (Auto) 27.1, Monocytes (%) (Auto) 6.9, Eosinophils (%) (Auto) 0.4, Basophils (%) (Auto) 1.5, Sodium Level 147H, Potassium Level 4.3, Chloride Level 114H, Carbon Dioxide Level 21, Anion Gap 12, Blood Urea Nitrogen 52H, Creatinine 2.6H, Estimat Glomerular Filtration Rate 19.4, Glucose Level 85, Uric Acid 11.4H, Calcium Level 9.4, Phosphorus Level 3.1, Total Bilirubin 0.1L, Direct Bilirubin < 0.1, Gamma Glutamyl Transpeptidase 11, Aspartate Amino Transf (AST/SGOT) 25, Alanine Aminotransferase (ALT/SGPT) 16, Alkaline Phosphatase 74, Total Protein 7.3, Albumin 2.0L, Triglycerides Level 345H, Cholesterol Level 200, LDL Cholesterol 111H, HDL Cholesterol 19L, Cholesterol/ HDL Ratio 10.5H Height (Feet): 5 Height (Inches): 5.00 Weight (Pounds): 194 General Appearance: lethargic EENT: normal ENT inspection Neck: normal alignment Cardiovascular: normal rate, regular rhythm Respiratory/Chest: normal breath sounds, no respiratory distress Extremities: normal inspection Skin: normal pigmentation Soto HurtadoVickie April 12, 2020 13:06
[2020-04-12] MEDS ORDERED: KEFLEX250 MG ORAL (13:50)
--- NOTE | 2020-04-12 14:24 | Hematology/Onc Progress Note ---
Assessment/Plan Assessment/Plan Assessment and Recs # Anemia of chronic disease due to underlying chronic medical issues, multifactorial v Gi bleed --> Anemia workup has been ordered, rule out gi bleed --> No evidence of hemolysis is noted, peripheral smear has been reviewed. --> Hgb goal >7. Transfuse prn. --> Epogen started --> Medications have been reviewed --> low threshold for gi evaluation in case has occult + --> bone marrow biopsy is not indicated given the other more likely causes --> hgb trend 8.2-->8.1-->8.4-->7.8 -->8.3 --> no hemolysis is noted # Leukocytosis r/o covid, pna --> on abx as per id --> on uti ctx rx->levo-->cftx --> wbc trend: 14.8 # UTI (urinary tract infection) --> on abx ---> as per id # Gerd --> on ppi # Dehydration --> per renal # Dvt ppx --> heparin sq The timing of this note does not necessarily reflect the time of the patient was seen. Greatly appreciate consultation. Subjective HEENT: Denies: no symptoms, eye pain, blurred vision, tearing, double vision, ear pain, ear discharge, nose pain, nose congestion, throat pain, throat swelling, mouth pain, mouth swelling, other Cardiovascular: Denies: no symptoms, chest pain, edema, irregular heart rate, lightheadedness, palpitations, syncope, other Respiratory: Denies: no symptoms, cough, shortness of breath, SOB with excertion, SOB at rest, sputum, wheezing, other Gastrointestinal/Abdominal: Denies: no symptoms, abdomen distended, abdominal pain, black stools, tarry stools, blood in stool, constipated, diarrhea, difficulty swallowing, nausea, poor appetite, poor fluid intake, rectal bleeding , vomiting, other Genitourinary: Denies: no symptoms, burning, discharge, frequency, flank pain, hematuria, incontinence, pain, urgency, other Neurologic/Psychiatric: Denies: no symptoms, anxiety, depressed, emotional problems, headache, numbness, paresthesia, pre-existing deficit, seizure, tingling, tremors, weakness, other Endocrine: Denies: no symptoms, excessive sweating, flushing, intolerance to cold, intolerance to heat, increased hunger, increased thirst, increased urine, unexplained weight gain, unexplained weight loss, other Hematologic/Lymphatic: Denies: no symptoms, anemia, easy bleeding, easy bruising, adenopathy, other Allergies: Coded Allergies: No Known Allergies (Unverified , 10/09/18) Subjective 04/08 no bleeding, hgb 10.1 wbc is higher, no bleeidng 04/09 for transfusion, awaiting consent from family members, no bleeding 04/10 no transfusion, repeat hgb 8.4, on cftx, no sob 04/11 awake and alert, hgb 7.8, no new orders, room air 04/12 labs are noted, no bleeding, smear reviewed, referred to aru at [facility] Objective Objective Current Medications Medications (Trade) Dose Ordered Sig/Alix Route PRN Reason Start Time Stop Time Status Last Admin Dose Admin Acetaminophen (Tylenol) 650 mg Q4H PRN ORAL Mild Pain (Pain Scale 1-3) 04/05/20 15:30 05/05/20 15:29 04/10/20 01:14 Allopurinol (allopurinoL) 300 mg DAILY ORAL 04/13/20 09:00 05/13/20 08:59 Bisacodyl (Dulcolax) 10 mg DAILYPRN PRN RECTAL Constipation 04/05/20 16:30 07/04/20 16:29 Calcitonin [place] (Miacalcin) 1 sprays DAILY NASAL 04/10/20 11:00 07/09/20 10:59 04/12/20 09:21 Ceftriaxone Sodium 1 gm/ Dextrose 55 ml @ 110 mls/hr Q24H IVPB 04/08/20 16:00 04/15/20 15:59 04/11/20 18:32 Citalopram Hydrobromide (CeleXA) 20 mg DAILY ORAL 04/07/20 09:00 05/07/20 08:59 04/12/20 09:13 Dextrose 1,000 ml @ 150 mls/hr Q6H40M IV 04/07/20 12:45 05/07/20 12:44 04/12/20 11:04 Dextrose (Dextrose 50%) 25 ml Q30M PRN IV Hypoglycemia 04/05/20 15:30 07/04/20 15:29 Dextrose (Dextrose 50%) 50 ml Q30M PRN IV Hypoglycemia 04/05/20 15:30 07/04/20 15:29 Diphenhydramine HCl (Benadryl) 25 mg Q6H PRN ORAL Itching/Pruritis 04/05/20 15:30 05/05/20 15:29 Divalproex Sodium (Depakote ER) 500 mg EVERY 12 HOURS ORAL 04/06/20 21:00 05/06/20 20:59 04/12/20 09:13 Docusate Sodium (Colace) 100 mg TID ORAL 04/06/20 13:00 05/05/20 20:59 04/12/20 13:57 Epoetin Enrique (Epoetin Enrique-EPBX(NON ESRD)) 4,000 unit THU- SUBQ 04/09/20 21:00 07/08/20 20:59 04/11/20 21:04 Fish Oil (Fish Oil) 1,000 mg BID ORAL 04/12/20 13:30 05/12/20 13:29 04/12/20 13:56 Folic Acid (Folate) 2 mg DAILY ORAL 04/10/20 09:00 05/09/20 08:59 04/12/20 09:13 Heparin Sodium (Porcine) (Heparin 5000 units/ml) 5,000 units EVERY 12 HOURS SUBQ 04/05/20 21:00 05/20/20 20:59 04/12/20 09:14 Levothyroxine Sodium (Synthroid) 75 mcg DAILY@0630 ORAL 04/08/20 06:30 05/07/20 06:29 04/12/20 05:37 Lorazepam (Ativan) 1 mg Q6H PRN ORAL For Anxiety 04/06/20 14:30 04/13/20 14:29 04/12/20 09:12 Midodrine (Pro-Amatine) 10 mg THREE TIMES A DAY ORAL 04/11/20 09:00 07/08/20 12:59 04/12/20 13:56 Morphine Sulfate (Morphine Sulfate) 1 mg Q6H PRN IVP For Pain 04/05/20 15:30 04/12/20 15:29 Nitroglycerin (Ntg) 0.4 mg Q5M X 3 DOSES PRN SL Prn Chest Pain 04/05/20 15:30 05/05/20 15:29 Olanzapine (ZyPREXA) 5 mg BID ORAL 04/06/20 18:00 05/21/20 17:59 04/12/20 09:12 Ondansetron HCl (Zofran) 4 mg Q6H PRN IVP Nausea & Vomiting 04/05/20 15:30 05/05/20 15:29 Pantoprazole (Protonix) 40 mg Q12HR ORAL 04/06/20 21:00 05/06/20 08:59 04/12/20 09:12 Quetiapine Fumarate (SEROqueL) 200 mg QHS ORAL 04/06/20 21:00 05/21/20 20:59 04/11/20 21:02 Tamsulosin HCl (Flomax) 0.4 mg DAILY ORAL 04/11/20 09:00 05/11/20 08:59 04/12/20 09:13 Zolpidem Tartrate (Ambien) 5 mg HSPRN PRN ORAL Insomnia 04/05/20 15:30 04/12/20 15:29 04/11/20 21:08 Last 24 Hour Vital Signs Date Time Temp Pulse Resp B/P (MAP) Pulse Ox O2 Delivery O2 Flow Rate FiO2 04/12/20 12:00 98.1 63 19 100/62 (75) 97 04/12/20 09:00 Room Air 04/12/20 08:00 97.9 56 20 93/59 (70) 98 04/12/20 04:00 97.7 55 18 92/54 (67) 97 04/12/20 00:00 98.2 50 18 100/62 (75) 94 04/11/20 21:00 Room Air 04/11/20 20:00 97.0 48 18 98/62 (74) 99 04/11/20 16:00 98.2 53 18 95/48 (64) 97 04/11/20 12:00 97.1 47 19 129/57 (81) 98 04/11/20 09:00 Room Air 04/11/20 08:00 97.2 69 18 94/63 (73) 97 04/11/20 04:00 98.0 53 18 107/57 (74) 96 04/11/20 00:00 97.8 52 18 99/54 (69) 96 04/10/20 21:16 97.0 53 18 106/47 (66) 97 04/10/20 21:00 Room Air 04/10/20 20:00 97.0 50 18 86/55 (65) 97 04/10/20 16:00 98.1 76 17 110/63 (79) 97 Intake and Output 04/11/20 04/12/20 19:00 07:00 Intake Total 480 ml 690 ml Balance 480 ml 690 ml Intake Oral 480 ml 240 ml IV Total 450 ml # Voids 1 3 # Bowel Movements 1 Labs Test 04/10/20 08:05 04/11/20 04:00 04/11/20 05:20 04/12/20 05:35 White Blood Count 16.5 K/UL (4.8-10.8) 14.8 K/UL (4.8-10.8) 13.5 K/UL (4.8-10.8) Red Blood Count 2.80 M/UL (4.20-5.40) 2.56 M/UL (4.20-5.40) 2.73 M/UL (4.20-5.40) Hemoglobin 8.4 G/DL (12.0-16.0) 7.8 G/DL (12.0-16.0) 8.3 G/DL (12.0-16.0) Hematocrit 26.2 % (37.0-47.0) 23.5 % (37.0-47.0) 25.3 % (37.0-47.0) Mean Corpuscular Volume 93 FL (80-99) 92 FL (80-99) 93 FL (80-99) Mean Corpuscular Hemoglobin 30.0 PG (27.0-31.0) 30.6 PG (27.0-31.0) 30.6 PG (27.0-31.0) Mean Corpuscular Hemoglobin Concent 32.2 G/DL (32.0-36.0) 33.3 G/DL (32.0-36.0) 32.9 G/DL (32.0-36.0) Red Cell Distribution Width 15.8 % (11.6-14.8) 15.5 % (11.6-14.8) 15.5 % (11.6-14.8) Platelet Count 343 K/UL (150-450) 355 K/UL (150-450) 389 K/UL (150-450) Mean Platelet Volume 4.5 FL (6.5-10.1) 4.6 FL (6.5-10.1) 4.9 FL (6.5-10.1) Neutrophils (%) (Auto) % (45.0-75.0) % (45.0-75.0) 64.1 % (45.0-75.0) Lymphocytes (%) (Auto) % (20.0-45.0) % (20.0-45.0) 27.1 % (20.0-45.0) Monocytes (%) (Auto) % (1.0-10.0) % (1.0-10.0) 6.9 % (1.0-10.0) Eosinophils (%) (Auto) % (0.0-3.0) % (0.0-3.0) 0.4 % (0.0-3.0) Basophils (%) (Auto) % (0.0-2.0) % (0.0-2.0) 1.5 % (0.0-2.0) Differential Total Cells Counted 100 100 Neutrophils % (Manual) 45 % (45-75) 61 % (45-75) Lymphocytes % (Manual) 20 % (20-45) 19 % (20-45) Monocytes % (Manual) 6 % (1-10) 9 % (1-10) Eosinophils % (Manual) 3 % (0-3) 3 % (0-3) Basophils % (Manual) 0 % (0-2) 1 % (0-2) Metamyelocytes % 3 % (0-0) 4 % (0-0) Myelocytes % 13 % (0-0) 1 % (0-0) Band Neutrophils 10 % (0-8) 2 % (0-8) Platelet Estimate Adequate Adequate Platelet Morphology Normal Normal Red Blood Cell Morphology Normal Sodium Level 142 MMOL/L (136-145) 143 MMOL/L (136-145) 147 MMOL/L (136-145) Potassium Level 4.0 MMOL/L (3.5-5.1) 3.9 MMOL/L (3.5-5.1) 4.3 MMOL/L (3.5-5.1) Chloride Level 110 MMOL/L (98-107) 111 MMOL/L (98-107) 114 MMOL/L (98-107) Carbon Dioxide Level 18 MMOL/L (21-32) 20 MMOL/L (21-32) 21 MMOL/L (21-32) Anion Gap 14 mmol/L (5-15) 12 mmol/L (5-15) 12 mmol/L (5-15) Blood Urea Nitrogen 56 mg/dL (7-18) 54 mg/dL (7-18) 52 mg/dL (7-18) Creatinine 2.7 MG/DL (0.55-1.30) 3.0 MG/DL (0.55-1.30) 2.6 MG/DL (0.55-1.30) Estimat Glomerular Filtration Rate 18.5 mL/min (>60) 16.4 mL/min (>60) 19.4 mL/min (>60) Glucose Level 99 MG/DL (74-106) 78 MG/DL (74-106) 85 MG/DL (74-106) Uric Acid 10.9 MG/DL (2.6-7.2) 11.4 MG/DL (2.6-7.2) Calcium Level 11.0 MG/DL (8.5-10.1) 9.8 MG/DL (8.5-10.1) 9.4 MG/DL (8.5-10.1) Phosphorus Level 3.8 MG/DL (2.5-4.9) 3.9 MG/DL (2.5-4.9) 3.1 MG/DL (2.5-4.9) Magnesium Level 2.2 MG/DL (1.8-2.4) 2.0 MG/DL (1.8-2.4) Total Bilirubin 0.2 MG/DL (0.2-1.0) 0.1 MG/DL (0.2-1.0) 0.1 MG/DL (0.2-1.0) Aspartate Amino Transf (AST/SGOT) 24 U/L (15-37) 23 U/L (15-37) 25 U/L (15-37) Alanine Aminotransferase (ALT/SGPT) 11 U/L (12-78) 16 U/L (12-78) 16 U/L (12-78) Alkaline Phosphatase 73 U/L (46-116) 65 U/L (46-116) 74 U/L (46-116) Total Protein 7.7 G/DL (6.4-8.2) 7.1 G/DL (6.4-8.2) 7.3 G/DL (6.4-8.2) Albumin 1.9 G/DL (3.4-5.0) 1.8 G/DL (3.4-5.0) 2.0 G/DL (3.4-5.0) Globulin 5.8 g/dL 5.3 g/dL Albumin/Globulin Ratio 0.3 (1.0-2.7) 0.3 (1.0-2.7) Hypochromasia 3+ Anisocytosis 1+ Spherocytes 1+ Direct Bilirubin < 0.1 MG/DL (0.0-0.3) Gamma Glutamyl Transpeptidase 11 U/L (5-85) Triglycerides Level 345 MG/DL (30-150) Cholesterol Level 200 MG/DL (< 200) LDL Cholesterol 111 mg/dL (<100) HDL Cholesterol 19 MG/DL (40-60) Cholesterol/HDL Ratio 10.5 (3.3-4.4) Height (Feet): 5 Height (Inches): 5.00 Weight (Pounds): 194 Objective Vitals: reviewed General: NAD HEENT: nc, at, legally blind+ Neck: supple Chest: clear breath sounds bilaterally Cardiovascular: RRR, no s3, s4 Abdomen: soft, nontender, nd Extremities: no cce, normal range of motion Neuro: alert and oriented David Ivey MD April 12, 2020 14:24
[2020-04-12 16:00] VITALS: BP 84/57
[2020-04-12] MEDS: cefTRIAXone 1gm/D5W 55ml IVPB SCH ×2 (16:00)
[2020-04-12] MEDS ORDERED: ALLOPURINOL300 M1 ORAL (17:05)
[2020-04-12] MEDS ORDERED: BENADRYL25 MG ORAL (17:06)
[2020-04-12] MEDS ORDERED: CALCITONIN-SAL3.7 ML NS (17:06)
[2020-04-12] MEDS ORDERED: DEPAKOTE250 MG PO (17:07)
[2020-04-12] MEDS ORDERED: DOCUSATE SODIU100 MG ORAL (17:08)
[2020-04-12] MEDS ORDERED: EPOGEN4000 UNIT/ SUBQ (17:08)
[2020-04-12] MEDS ORDERED: FISH OIL CAP1000 MG ORAL (17:09)
[2020-04-12] MEDS ORDERED: FOLIC ACID1 MG ORAL (17:09)
[2020-04-12] MEDS ORDERED: HEPARIN SO5000 UNIT2 SUBQ (17:10)
[2020-04-12] MEDS ORDERED: ATIVAN1 MG ORAL (17:11)
[2020-04-12] MEDS ORDERED: SYNTHROID75 MCG ORAL (17:11)
[2020-04-12] MEDS ORDERED: MIDODRINE HCL10 MG ORAL (17:12)
[2020-04-12] MEDS ORDERED: NITRO0.4 SL (17:13)
[2020-04-12] MEDS ORDERED: ZYPREXA5 MG ORAL (17:13)
[2020-04-12] MEDS ORDERED: PROTONIX40 MG ORAL (17:14)
[2020-04-12] MEDS ORDERED: ZOFRAN4 M3 ORAL (17:14)
[2020-04-12] MEDS ORDERED: QUETIAPINE FUM200 MG ORAL (17:16)
[2020-04-12] MEDS ORDERED: FLOMAX0.4 MG ORAL (17:16)
[2020-04-12] MEDS ORDERED: Cephalexin 250mg Cap ORAL SCH (18:00)
[2020-04-12 20:00] VITALS: BP 100/64
--- NOTE | 2020-04-12 21:15 | Progress Note ---
DATE: 04/12/2020 SUBJECTIVE: This is a 54-year-old female patient. She continues to have some confusion and some altered mental status. Overall decline in cognition below the baseline that is why her attending physician has requested daily psychiatric consultation. She has COPD, GERD. She is visually impaired. She also has GERD, COPD, urinary tract infection, fever, rule out COVID-19, chronic renal disease, but she has altered mental status, confusion, mood lability. That is why, her attending has requested daily psychiatric consultation. MENTAL STATUS EXAMINATION: This is a 54-year-old female. Appearance is disheveled. Attitude, irritable and agitated. Affect, guarded and restricted. Intellect, poor. Mood, depressed and anxious. Motor activity, psychomotor agitation. Attention span is poor. Orientation x2. Speech is low volume and slurred. Thought process, disorganized and logical. Insight and judgment is poor. DIAGNOSIS: Schizoaffective, bipolar type. PLAN: Plan for this patient is I am going to treat this patient with a medication regimen consisting of Zyprexa 5 mg twice a day, Ativan 1 every 6 hours p.r.n. anxiety and agitation, Depakote 500 mg twice a day to stabilize her mood and 20 minutes of cognitive behavioral therapy to help her identify automatic negative thoughts and help her convert negative thoughts to more positive thoughts to reduce depression, anxiety, mood lability. Also treated with Celexa 20 mg q. day. Seen and assessed at bedside. Chart reviewed. Discussed with staff. Pamela Maldonado M.D. DR: FARA JOB#: [id number] CC:
--- NOTE | 2020-04-13 11:09 | Discharge Summary ---
Discharge Summary Discharge Summary _ DATE OF ADMISSION: 04/05/2020 DATE OF DISCHARGE: 04/12/2020 DISCHARGED BY: Dr Hurtado REASON FOR ADMISSION: 54 years old female with past medical history of chronic kidney disease, COPD, diabetes mellitus type 2, seizure disorder, dementia, resident of alf facility was sent for evaluation due to severe anemia. Patient came from the facility where patients had confirmed CoVID 19 infection. Patient was febrile. Upon evaluation WBC 21.8, hemoglobin 8.3, hematocrit 24.9 platelet count 295. Urinalysis was highly suggestive of urinary tract infection. Stable electrolytes. BUN 63, creatinine 3.2, consistent with known history of chronic kidney disease. Lactic acid 0.7. Glucose 95. Troponin negative. pro BNP 7568. EKG revealed sinus rhythm, no acute ischemic changes. Chest x-ray demonstrated no acute cardiopulmonary pathology. In emergency department patient pancultured, started on empiric antibiotics, swabbed for COVID-19 and admitted for further management. CONSULTANTS: pulmonary Dr. Walker ID specialist Dr. Chacon senior budget analyst Dr. Lane minute clerk Dr. Love sales product specialist/oncologist Dr. Ivey psychiatrist Dr. Maldonado [facility] COURSE: [] Patient admitted to medical surgical floor to isolation room. Patient started on empiric antibiotic as per ID specialist recommendation. Blood cultures were negative. SARS-Cov 2 by PCR on 04/05 was not detected and repeated on 04/08 was not detected as well. Isolation was discontinued. Urine culture revealed E. coli. Antibiotic regimen was de-escalated . Follow-up chest x-ray revealed questionable developing bilateral hazy infiltrate. Repeated chest x-ray revealed no acute process. Leukocytosis trending down , fevers resolved. Upon discharge patient was transitioned to oral antibiotics to complete the treatment at the accepting facility. Supplemental oxygen provided and titrated to keep pulse oximetry above 92%. Pulmonary toilet provided. Pulse oximetry stable on room air prior to discharge. Renal parameters and electrolytes were closely monitored, electrolytes corrected as needed ,nephrotoxins were avoided. Renal ultrasound revealed mild bilateral hydronephrosis. Normal bilateral kidney echogenicity. Per senior budget analyst patient had acute renal failure and underlying chronic kidney disease. Prior to discharge creatinine from 3.2 down to 2.6; BUN from 63 down to 52. Patient started on Flomax. Serum protein electrophoresis did not suggest any abnormal protein. Hypercalcemia was treated and resolved. Allopurinol was added for high uric acid. Patient has a history of diabetes mellitus, hemoglobin A1c 5.7. Patient borderline diabetic ; no need for oral diabetic medication at this time. Patient noted to have low TSH 0.091. Free T4 0.48 . Patient with known history of hypothyroidism, on Levothyroxine Per minute clerk , patient had iatrogenic hyperthyroidism. Levothyroxine was dose was decreased from 100 to 75 mcg daily , repeat thyroid function tests in 2 to 3 weeks. Hemoglobin and hematocrit were closely monitored. Anemia work-up was consistent with anemia of chronic disease. Patient started on Epogen. No hemolysis noted. DVT prophylaxis provided. Hemoglobin and hematocrit remained at the baseline prior to discharge hemoglobin 8.3 ,hematocrit 25.3. GI prophylaxis provided. Seizure precaution maintained. No evidence of seizure activity while in the hospital. Depakote continued. Psychiatric medication regimen was optimized as per psychiatrist Patient clinically stabilized and was ready for transfer to [facility] to acute rehabilitation unit. FINAL DIAGNOSES: Sepsis E. coli UTI Possible pneumonia Anemia of chronic disease Dehydration GERD Acute kidney injury on chronic kidney disease Hypercalcemia -resolved Seizure disorder Iatrogenic hyperthyroidism Underlying primary hypothyroidism Dementia Schizoaffective bipolar type DISCHARGE MEDICATIONS: See Medication Reconciliation list. DISCHARGE INSTRUCTIONS: Patient was discharged to [facility] to acute rehabilitation unit. Follow-up with medical doctor at the facility. I have been assigned to dictate discharge summary for this account. I was not involved in the patient's management. Gabrielle Maurer NP April 13, 2020 11:09
== END 2020-04-12 20:50 | disposition short-term general hospital (02) | DRG 871 ==
LOC: EDBD 13:57 → EMR 14:07 → 4E 14:52 → EDBEDREQ 18:52
DX: A41.9 Sepsis, unspecified organism (principal); J18.9 Pneumonia, unspecified organism; N39.0 Urinary tract infection, site not specified; N17.9 Acute kidney failure, unspecified; F33.0 Major depressive disorder, recurrent, mild; G40.909 Epilepsy, unspecified, not intractable, without status epilepticus; I12.9 Hypertensive chronic kidney disease with stage 1 through stage 4 chronic kidney disease, or unspecified chronic kidney disease; N18.9 Chronic kidney disease, unspecified; E11.22 Type 2 diabetes mellitus with diabetic chronic kidney disease; K21.9 Gastro-esophageal reflux disease without esophagitis; D63.8 Anemia in other chronic diseases classified elsewhere; E03.9 Hypothyroidism, unspecified; B96.20 Unspecified Escherichia coli [E. coli] as the cause of diseases classified elsewhere; E86.0 Dehydration; E83.52 Hypercalcemia; F03.90 Unspecified dementia, unspecified severity, without behavioral disturbance, psychotic disturbance, mood disturbance, and anxiety; F25.0 Schizoaffective disorder, bipolar type; M19.90 Unspecified osteoarthritis, unspecified site; H54.7 Unspecified visual loss; E05.80 Other thyrotoxicosis without thyrotoxic crisis or storm; T38.1X5A Adverse effect of thyroid hormones and substitutes, initial encounter
CPT/HCPCS: 36415; 71045; 76770; 80048; 80053; 80061; 80076; 81003; 82607; 82728; 82746; 82977; 83036; 83540; 83550; 83605; 83690; 83735; 83880; 83970; 84100; 84165; 84439; 84443; 84484; 84550; 85007; 85025; 86850; 86900; 86901; 86920; 87040; 87086; 87181; 87635; 93005; 96365; 96366; 96368; 97803; 99285; J2430; J7030